=== PATIENT | male | born 1945 | race Caucasian/White ===

== ENCOUNTER → 2018-04-03 07:20 | Outpatient (CLI) | payer MEDICARE, BC, SELFPAY | PROVIDERS: PCP Internal Medicine; Visit Provider Surgery | DX: D64.9 Anemia, unspecified (principal) | CPT/HCPCS: 99213 ==

== ENCOUNTER 2018-04-19 09:43 | Day surgery (SDC) | payer MEDICARE, BC, SELFPAY ==
--- NOTE | 2018-04-19 06:42 | PDOC.DISCH_ITS ---
Discharge - Discharge Orders - Discharge Plan Disposition: HOME Condition: Fair Diet:: As Tolerated Equipment/Supplies:: No Equipment Needed Activity:: Activity as Tolerated - Instructions Micromedex Instructions: Colonoscopy (DC), Upper Endoscopy (DC), Gastritis (DC) , Diet for Stomach Ulcers and Gastritis (GEN), Colorectal Polyps (DC) Additional Instructions: Findings: 1. mild inflammation of the stomach 2. one polyp in the large bowel Follow up: depends on polyp pathology New Medications: Zantac 300 mg daily for 2 month to help with inflammation in the stomach Diet: low acid Please call if you develop: fevers >101.5 Nausea or Vomiting Abdominal pain that is not transient 1. Because there will be medication in your system for the next 24 hours, you may feel a little sleepy. Your coordination will be affected. Therefore: a. Do not drive or operate dangerous equipment for 24 hours. b. Do not drink alcohol beverages for 24 hours (not even beer). c. Plan to go home and rest for the day. 2. Generally there are no restrictions on your activity after a day or so has gone by, but you may feel a bit fatigued for a few days. 3 After you arrive home you may have a light meal and return to a normal diet as you can tolerate it without feeling sick to your stomach. 4. After surgery, you may feel pain or discomfort. This should be only transient , but if it persists please contact your doctor. 5. If there are any questions regarding the findings of your procedure, please feel free to contact your doctor. 6. If you are unable to contact your doctor with a problem, contact the hospital at [phone]. 7. Continue all your regular medications unless directed otherwise. I understand the above instructions and have no questions. Signature of Patient or Responsible Adult Escort Date/Time Name of Responsible Adult Escort Signature of Nurse Date/Time
[2018-04-19 09:57] VITALS: BP 95/61; PULSE 75; RESP 16; TEMP 37.6; O2SAT 97
[2018-04-19] MEDS: Lactated Ringers 1,000 ML 600 ML IV (11:10)
--- NOTE | 2018-04-19 11:18 | STOM_PTH ---
PATIENT: Gamal Zabala LOC: [facility] U#:[id number] AGE/SX: 72/M ROOM: RE04/19/[address]: Christiana Marin MD : [id number] BED: DIS: 04/19/2018 SPEC #: [id number] RECD: 04/19/18 12:28 STATUS: SULAIMAN REQ #: [id number] NGUYEN: 04/19/18 11:[address]: Christiana Marin DEPT: Surgical Specimen RECD BY: Kellie Campos ENTERED: 04/19/18 12:29 SP TYPE: STOMACH OTHR DR: Kristopher Fry Tissues: 1 - STOMACH BIOPSY 2 - BIOPSY BOWEL Procedures: GROSS AND MICRO LEVEL 4 IMMUNOPEROXIDASE STAIN Comments: [id number]
[2018-04-19 11:58] VITALS: BP 92/68; PULSE 74; RESP 16; TEMP 37; O2SAT 97
[2018-04-19 12:27] VITALS: BP 88/60; PULSE 65; RESP 16; TEMP 36.9; O2SAT 98
--- NOTE | 2018-04-19 13:11 | COLE_ITS ---
DATE OF PROCEDURE: April 19, 2018 PREOPERATIVE DIAGNOSIS: Anemia. POSTOPERATIVE DIAGNOSIS: Mild gastritis and one polyp in the transverse colon. PROCEDURE: 1. Esophagogastroduodenoscopy with antral biopsies. 2. Colonoscopy with polypectomy by cold forceps. ANESTHESIA: Monitored Anesthesia Care. ASA Class 2. ANESTHESIA PROVIDER: Jennifer Meléndez CRNA SURGEON: Lawrence Marin M.D. LUMBER SORTER: None. BLOOD LOSS: Minimal. SPECIMENS: 1. Antral biopsies. 2. Transverse colon polyp. PREP: MiraLAX and Dulcolax, which were adequate. COMPLICATIONS: No immediate complications. INDICATIONS: Mr. Zabala is a 72-year-old gentleman who was found to be anemic. He denies any melen a or hematochezia. Risks, benefits and complications were reviewed with him and he wished to proceed . No guarantees were given or implied. PROCEDURE START: 11:15 PROCEDURE END: 11:49 RETRACTION TIME: 11:34 to 11: 49, fifteen minutes. PROCEDURE: After informed consent was obtained, the patient was taken to the endoscopy suite and butch madnona in the supine position. Monitors were applied and a time-out was done. The patient's name, date of , procedure type, allergies to medications and metal in his body were all reviewed. The pat ient was then given sedation and a bite block was placed. Once sedated and comfortable, the gastroscope was introduced and advanced through the oropharynx into the esophagus. The proximal, mid and distal esophagus were normal. The Z-line was regular and at 3 5 cm. No inflammation was noted. The scope was advanced into the stomach and through the pylorus in to the third portion of the duodenum. The duodenum was normal. The scope was retracted back into th e stomach, where mild inflammation was noted around the antrum and this was biopsies to rule out H. p ylori. The scope was retroflexed; again no hiatal hernia was noted and the cardia and fundus were no rmal. No ulcers were identified. The scope was straightened and retracted back into the esophagus a nd remove. The patient's bed was then turned around and while sedated, a rectal exam was done. External exam wa s normal. Internal exam revealed normal sphincter tone, smooth prostate and no palpable masses. The colonoscope was introduced and retroflexed. Mild, grade 1 hemorrhoids were identified. The scope was straightened and advanced to the cecum without difficulty. The terminal ileum and appendiceal or ifice were identified. The prep was adequate. The scope was then slowly retracted back into the rec moises. In the transverse colon a small, sessile polyp was removed with forceps. Once in the rectum th e scope was removed. The patient was woken up and taken back to same-day surgery in stable condition . FOLLOW-UP: Depends on final pathology. If patient continues to be anemic, he may need a capsule end oscopy.
== END 2018-04-19 12:47 | disposition home or self-care (01) ==
PROVIDERS: PCP Internal Medicine; Visit Provider Surgery
DX: D64.9 Anemia, unspecified (principal); K63.5 Polyp of colon; K31.89 Other diseases of stomach and duodenum
CPT/HCPCS: 43239; 45380; 88305; 88361; J3010

== ENCOUNTER 2018-05-07 12:34 | Outpatient (REF) | payer MEDICARE, BC, SELFPAY ==
[2018-05-07 21:31] LABS: Abs Immature Grans 0.01 k/cumm (0.0-0.09); Absolute Basophil Count 0.03 k/cumm (0.0-0.2); Absolute Eosinophil Count 0.14 k/cumm (0.0-0.7); Absolute Lymphocyte Count 1.82 k/cumm (1.2-3.4); Absolute Neutrophil Count 3.74 k/cumm (1.2-6.7); Basophils % 0.5; Eosinophils % 2.2; HGB 10.5 g/dL (13.5-17.5); Immature Grans % 0.2; Lymphocytes % 28.3; Mean Corp. HGB Concentration 31.8 g/dL (32.0-36.0); Mean Corpuscular Hemoglobin 30.3 pg (27.0-33.0); Mean Corpuscular Volume 95.4 fL (80-95); Mean Platelet Volume 9.7 fL (8.0-11.0); Monocytes % 10.9; Neutrophils % 57.9; Platelet Count 229 x1000/uL (130-400); RBC 3.46 m/cumm (4.50-6.00); RBC Distribution Width 16.2 % (11.8-14.1); White Blood Cell Count 6.44 k/cumm (4.4-10.8)
[2018-05-09 09:33] LABS: IgA 764 mg/dL (85-499); IgG 1960 mg/dL (610-1616); IgM 64 mg/dL (35-242)
[2018-05-10 08:43] LABS: Albumin 44.2 % (55.8-66.1); Total Protein 7.7 g/dl (6.3-8.2)
== END 2018-05-07 12:54 ==
LOC: NCHCN 12:34
PROVIDERS: PCP Internal Medicine; Visit Provider Internal Medicine
DX: B02.9 Zoster without complications (principal)
CPT/HCPCS: 82784; 84165; 85025

== ENCOUNTER 2018-06-20 14:24 | Outpatient (CLI) | payer MEDICARE, BC, SELFPAY ==
--- NOTE | 2018-06-20 08:12 | DI.RAD_ITS ---
SYMPTOM/DIAGNOSIS: F/U RT MONO RIGHT HIP: The patient is status post THR. The prosthesis in good position with no significant interval change when compared with prior images dating back to 2016.
== END 2018-06-20 14:44 ==
PROVIDERS: PCP Internal Medicine; Referring Provider Internal Medicine; Visit Provider Student in an Organized Health Care Education/Training Program
DX: Z96.641 Presence of right artificial hip joint (principal); M25.551 Pain in right hip
CPT/HCPCS: 20610; 99213; 73502; J1040

== ENCOUNTER 2018-08-23 12:00 | Outpatient (REF) | payer MEDICARE, BC, SELFPAY ==
[2018-08-23 21:09] LABS: Abs Immature Grans 0.02 k/cumm (0.0-0.09); Absolute Basophil Count 0.02 k/cumm (0.0-0.2); Absolute Eosinophil Count 0.21 k/cumm (0.0-0.7); Absolute Lymphocyte Count 1.98 k/cumm (1.2-3.4); Absolute Monocyte Count 0.79 k/cumm (0.11-0.7); Absolute Neutrophil Count 4.62 k/cumm (1.2-6.7); Basophils % 0.3; Eosinophils % 2.7; HCT 34.4 % (40.0-50.0); HGB 11.1 g/dL (13.5-17.5); Immature Grans % 0.3; Lymphocytes % 25.9; Mean Corp. HGB Concentration 32.3 g/dL (32.0-36.0); Mean Corpuscular Hemoglobin 30.8 pg (27.0-33.0); Mean Corpuscular Volume 95.6 fL (80-95); Mean Platelet Volume 9.6 fL (8.0-11.0); Monocytes % 10.3; Neutrophils % 60.5; Platelet Count 242 x1000/uL (130-400); RBC Distribution Width 15.7 % (11.8-14.1); White Blood Cell Count 7.64 k/cumm (4.4-10.8)
[2018-08-23 21:36] LABS: Ferritin 29 ng/mL (8-388)
[2018-08-27 09:30] LABS: Hepatitis C Ab w Rflx HCV PCR Negative (NEGAT)
== END 2018-08-23 12:20 ==
LOC: NCHCN 12:00
PROVIDERS: PCP Internal Medicine; Visit Provider Internal Medicine
DX: D53.9 Nutritional anemia, unspecified (principal); M54.5 Low back pain; Z11.59 Encounter for screening for other viral diseases
CPT/HCPCS: 86803; 82728; 85025

== ENCOUNTER → 2018-09-05 08:28 | Outpatient (BNVA) | payer MEDICARE, BC, SELFPAY | PROVIDERS: PCP Internal Medicine; Referring Provider Internal Medicine; Visit Provider Student in an Organized Health Care Education/Training Program | DX: M70.61 Trochanteric bursitis, right hip (principal); Z47.1 Aftercare following joint replacement surgery; S39.011A Strain of muscle, fascia and tendon of abdomen, initial encounter; X58.XXXA Exposure to other specified factors, initial encounter | CPT/HCPCS: 99213 ==

== ENCOUNTER 2018-10-22 01:34 | Outpatient (CLI) | payer MEDICARE, BC, SELFPAY ==
--- NOTE | 2018-10-22 08:11 | DI.RAD_ITS ---
SYMPTOM/DIAGNOSIS:S/P L 4-5 DECOMPRESSION AND PARTIAL FACETECTOMY, STENOSIS, M48.061, S/P LUMBAR FUSION, Z98.1 LUMBAR SPINE: There are no prior comparison exams. The patient is status post placement of hardware at L 4-5. There has been an L 4 laminectomy and disc spacer placement at L 4-5. There is mild spondylolisthesis. There appears to be partial lumbarization of L 5. Endplate osteophytes are seen throughout. The right hip prosthesis is noted. IMPRESSION: Status post L 4-5 posterior fusion and laminectomy.
== END 2018-10-22 01:54 ==
PROVIDERS: PCP Internal Medicine; Visit Provider Neurological Surgery
DX: M48.061 Spinal stenosis, lumbar region without neurogenic claudication (principal); Z98.1 Arthrodesis status
CPT/HCPCS: 72110

== ENCOUNTER 2018-11-16 01:42 | Outpatient (CLI) | payer MEDICARE, BC, SELFPAY ==
--- NOTE | 2018-11-16 08:32 | DI.MRI_ITS ---
SYMPTOM/DIAGNOSIS: CHRONIC LOW BACK PAIN, LT THIGH PAIN, M79.652, M54.5, LUMBAR STENOSIS WITH NEUROGENIC CLAUDICATION,M48.062 S/P LUMBAR FUSION, Z98.1, EVALUATE FOR CORD COMPRESSION LUMBAR SPINE MRI: Routine noncontrast examination. Comparison is made with 10/06/17. Since the prior examination, the patient has undergone an L 4-5 laminectomy and L 4-5 discectomy. The conus medullaris is unchanged compared to the prior examination. At L 5-S 1, there is normal disc signal. No focal disc herniation or central spinal canal or neural foraminal stenosis is seen. At L 4-5, there is no significant central spinal canal stenosis. There does appear to be a diffuse disc bulge. There is narrowing of the right neural foramen which does appear to cause mild compression upon the exiting nerve root. There is mild narrowing of the left neural foramen with minimal narrowing of the exiting nerve root. At L 3-4, there is disc desiccation and a diffuse disc bulge. There does appear to be mild narrowing of the central spinal canal. There is bilateral neural foraminal narrowing with mild compression of the exiting nerve roots. At L 2-3, there is a diffuse disc bulge. There are degenerative changes of the facets with hypertrophy of the ligamentum flavum causing mild to moderate central spinal canal stenosis. No significant neural foraminal stenosis is seen. At L 1-2, there is a mild diffuse disc bulge with minimal narrowing of the AP diameter of the central spinal canal. No significant neural foraminal stenosis is seen. Mild degenerative endplate signal changes are present. Otherwise marrow signal is within normal limits. IMPRESSION: Interval post surgical changes at L 4-5. Multi level degenerative changes in the lumbar spine resulting in central spinal canal and neural foraminal stenosis as described above.
== END 2018-11-16 02:02 ==
PROVIDERS: PCP Internal Medicine; Visit Provider Neurological Surgery
DX: M54.5 Low back pain (principal); M79.652 Pain in left thigh; Z98.1 Arthrodesis status; M51.26 Other intervertebral disc displacement, lumbar region; M51.36 Other intervertebral disc degeneration, lumbar region
CPT/HCPCS: 72148

== ENCOUNTER → 2018-11-26 09:20 | Outpatient (BNVA) | payer MEDICARE, BC, SELFPAY | PROVIDERS: PCP Internal Medicine; Referring Provider Internal Medicine; Visit Provider Student in an Organized Health Care Education/Training Program | DX: M70.61 Trochanteric bursitis, right hip (principal); Z98.890 Other specified postprocedural states | CPT/HCPCS: 99213 ==

== ENCOUNTER 2019-03-12 12:37 | Outpatient (CLI) | payer MEDICARE, BC, SELFPAY ==
[2019-03-12 12:50] VITALS: BP 104/72; PULSE 81; RESP 18; TEMP 37.7; O2SAT 97
--- NOTE | 2019-03-12 13:28 | PDOC.PAIN ---
Pain Clinic Procedure Note Current Active Problems Problem Status Onset Lumbar radicular syndrome LUMBAR / SACRAL TRANSFORAMINAL INJECTION AT THE RIGHT l4 LALY DANIEL has been [facility] for a transforaminal nerve root block and steroid injection. COMMENTS: I reviewed his evaluation by Ms. Garciayulycarmella from 01/24/19. He has had L4-L5 fusion surgery. Patient was interviewed and the medical record reviewed. There were no medical, pharmacologic, radiographic or other structural contraindications to attempting fluoroscopically guided transforaminal nerve root block and epidural steroid injection. Risks and expected side effects as well as potential benefit of the procedure were reviewed and voiced concerns addressed. The printed consent form was signed and witnessed. Standard time-out procedure was performed. Patient was placed in the prone position on the fluoroscopy table and automated blood pressure cuff and pulse oximeter applied. Fluoroscopy was utilized to identify the right neural foramen between L4 and L5. A skin josé luis was made for the needle insertion site. A Chlorhexadine prep was carried out, and sterile drapes were applied. Local anesthesia was achieved in the skin and subcutaneous tissues. A 22 gauge curved tip spinal needle was then inserted, advanced with fluoroscopic guidance into the neural foramen, confirmed on the lateral view. After negative aspiration, 2 ml of Omnipaque 240 was injected confirming position in A/P and lateral views. This showed a good spread of dye transforaminally into the epidural space. There was no vascular update with contrast injection under continuous fluoroscopy and digital substraction. 15 mg of Dexamethasone was injected, followed by 0.5 ml of 1% Xylocaine flush for the nerve root block, as well. There was no unusual discomfort expressed.The needle was withdrawn. The patient tolerated the procedure well. A Band-Aid was applied. Vital signs were stable throughout the procedure and were as recorded in nursing records. If given, dosages of intravenous drugs for anxiolysis and analgesia were documented in nursing records. Follow up plans and appointments were discussed. Post procedure instruction was given as documented in nursing records and patient was discharged in the care of an identified route salesman and driver. COMMENTS: If this procedure is effective, it can be completed up to 3 times per 12 months. CC: Kristopher Fry
--- NOTE | 2019-03-12 13:30 | DI.RAD_ITS ---
SYMPTOMS/DIAGNOSIS: LUMBAR RADICULOPATHY, TRANSFORAMINAL EPIDURAL STEROID INJECTION PAIN CLINIC: Fluoroscopy Time: 55.5s Fluoroscopy was utilized by Dr. Buchanan during the performance of a transforaminal epidural steroid injection. Please refer to the procedure report for complete details.
[2019-03-12 13:40] VITALS: BP 104/62; PULSE 88; RESP 20; O2SAT 95
[2019-03-12] MEDS: Omnipaque 240 MG/ML 50 ML BTL IJ (13:40)
[2019-03-12] MEDS: Dexamethasone Sod. Phos./Pres-Free 10 MG/ML VIAL IJ (13:40)
== END 2019-03-12 12:57 ==
PROVIDERS: PCP Internal Medicine; Visit Provider Preventive Medicine Occupational Medicine
DX: M54.16 Radiculopathy, lumbar region (principal)
CPT/HCPCS: 64483; 72100; Q9967

== ENCOUNTER → 2019-05-09 11:47 | Outpatient (BNVA) | payer MEDICARE, BC, SELFPAY | PROVIDERS: PCP Internal Medicine; Referring Provider Internal Medicine; Visit Provider Student in an Organized Health Care Education/Training Program | DX: Z96.641 Presence of right artificial hip joint (principal); Z98.890 Other specified postprocedural states; M70.61 Trochanteric bursitis, right hip; R79.82 Elevated C-reactive protein (CRP) | CPT/HCPCS: 99213 ==

== ENCOUNTER 2019-05-09 12:55 | Outpatient (CLI) | payer MEDICARE, BC, SELFPAY ==
[2019-05-09 14:27] LABS: C-Reactive Protein 1.76 mg/dL (0.0-0.3)
[2019-05-09 15:02] LABS: ESR 84 mm/hr (1-20)
== END 2019-05-09 13:15 ==
PROVIDERS: PCP Internal Medicine; Visit Provider Student in an Organized Health Care Education/Training Program
DX: M25.559 Pain in unspecified hip (principal); Z96.649 Presence of unspecified artificial hip joint; M70.61 Trochanteric bursitis, right hip; R79.82 Elevated C-reactive protein (CRP); Z96.641 Presence of right artificial hip joint; Z98.890 Other specified postprocedural states
CPT/HCPCS: 36415; 85652; 99213; 86140

== ENCOUNTER 2019-05-30 01:27 | Outpatient (CLI) | payer MEDICARE, BC, SELFPAY ==
--- NOTE | 2019-05-30 09:34 | DI.RAD_ITS ---
EXAM: RF JOINT INJECTION FLUORO GUID CLINICAL HISTORY: Right Hip Aspiration, chronic hip pain after total replacement rt hip joint. FINDINGS: Fluoroscopy was utilized by Dr. Espinosa during right hip injection. Hard copy shows needle placement overlying the right hip prosthesis. FLUORO TIME: 13.6 seconds
[2019-05-30] MEDS: Bupivacaine 0.5% Pres-Free 10 ML VIAL 8 ML IJ (09:37)
[2019-05-30 10:52] LABS: Clarity CLOUDY; Nucleated Cells 39250 /MM3 (0-0); Source R HIP
[2019-05-30 10:53] LABS: Mononuclear Cells 2 % (0-0); Polynuclear Cells 98 % (0-0)
--- NOTE | 2019-05-30 21:39 | W.PROCNOTE ---
Date of service: 05/30/19 Time of Service: 09:39 Procedure Note Date of procedure: 05/30/19 Procedure: Right Hip Aspiration and Injection with Fluoroscopic Guidance Surgeon/Proceduralist/Physician: Neptali Espinosa Procedure Diagnosis: Right Hip Pain after Hip Replacement Procedure Indications: Parvez has had worsening pain of the RIGHT hip and groin. To serve as diagnostic for possible infection, an aspiration under fluoroscopy was recommended. I had discussed the risks of the procedure and the patient elected to proceed. Procedure Description: Parvez was greeted in the flouroscopy room. The correct side was identified and the consent was reviewed with the patient and signed. The patient was then placed in the supine position on the fluoroscopy table. The RIGHT hip was then prepped with Chloraprep. The anterolateral injection starting point was identiifed by bony landmarks and fluoroscopy. The skin and soft tissue in the tract of the injection was anesthetized with 1% Lidocaine. A spinal needle was then inserted deep into the hip joint at the level of the lateral femoral neck under fluoroscopic guidance. Metallic contact was felt through the needle and location was confrimed to be correct on x-ray. Once confirmed, an aspiration was performed. Approximately 6cc of cloudy, yellow fluid was obtained. This was sent for cell count, culture, and synovasure. The hip was then injected with 6cc of 0.5% Bupivicaine. A bandaid was placed on the injection site.
== END 2019-05-30 01:47 ==
PROVIDERS: PCP Internal Medicine; Visit Provider Student in an Organized Health Care Education/Training Program
DX: M25.551 Pain in right hip; Z96.641 Presence of right artificial hip joint; T84.84XA Pain due to internal orthopedic prosthetic devices, implants and grafts, initial encounter
CPT/HCPCS: 20610; 77002; 87070; 87205; 89051

== ENCOUNTER 2019-07-10 11:55 | Outpatient (RCR) | payer MEDICARE, BC, SELFPAY ==
[2019-07-10] MEDS: Normal Saline Flush 10 ML SYR IVP (13:33)
== END 2019-07-20 23:59 | disposition home or self-care (01) ==
LOC: INF 11:55
PROVIDERS: PCP Internal Medicine; Visit Provider Internal Medicine
DX: T84.51XD Infection and inflammatory reaction due to internal right hip prosthesis, subsequent encounter (principal); A49.9 Bacterial infection, unspecified; Z79.2 Long term (current) use of antibiotics; Z98.890 Other specified postprocedural states
CPT/HCPCS: 96365; J2540

== ENCOUNTER 2019-07-15 12:39 | Outpatient (REF) | payer MEDICARE, BC, SELFPAY ==
[2019-07-15 16:02] LABS: Abs Immature Grans 0.03 k/cumm (0.0-0.09); Absolute Basophil Count 0.02 k/cumm (0.0-0.2); Absolute Eosinophil Count 0.21 k/cumm (0.0-0.7); Absolute Lymphocyte Count 1.72 k/cumm (1.2-3.4); Absolute Monocyte Count 0.78 k/cumm (0.11-0.7); Absolute Neutrophil Count 4.61 k/cumm (1.2-6.7); Basophils % 0.3; Eosinophils % 2.8; HCT 26.4 % (40.0-50.0); HGB 8.4 g/dL (13.5-17.5); Immature Grans % 0.4; Lymphocytes % 23.3; Mean Corp. HGB Concentration 31.8 g/dL (32.0-36.0); Mean Corpuscular Hemoglobin 31.2 pg (27.0-33.0); Mean Corpuscular Volume 98.1 fL (80-95); Mean Platelet Volume 9.4 fL (8.0-11.0); Monocytes % 10.6; Neutrophils % 62.6; Platelet Count 285 x1000/uL (130-400); RBC 2.69 m/cumm (4.50-6.00); RBC Distribution Width 16.1 % (11.8-14.1); White Blood Cell Count 7.37 k/cumm (4.4-10.8)
[2019-07-15 16:15] LABS: ALT 28 U/L (16-63); AST 24 U/L (15-37); Albumin 2.6 g/dL (3.4-5.0); Alkaline Phosphatase 68 U/L (46-116); Anion Gap 8.7 mmol/L (3-11); BUN 17 mg/dL (7-18); Bilirubin, Total 0.2 mg/dL (0.2-1.0); C-Reactive Protein 2.85 mg/dL (0.0-0.3); CO2 26.3 mmol/L (21.0-32.0); CREATININE 0.99 mg/dL (0.70-1.30); Calcium 8.1 mg/dL (8.5-10.1); Chloride 104 mmol/L (98-107); Glucose 128 mg/dL (74-106); Sodium 139 mmol/L (136-145); Total Protein 6.9 g/dL (6.4-8.2)
[2019-07-15 19:14] LABS: Anisocytosis 1+; Diff Comment RBC Morph Reviewed; Macrocytosis 1+; Polychromasia Present
== END 2019-07-15 12:59 ==
LOC: NCHCN 12:39
PROVIDERS: PCP Internal Medicine; Visit Provider Internal Medicine
DX: M25.551 Pain in right hip (principal); Z96.641 Presence of right artificial hip joint; T84.51XD Infection and inflammatory reaction due to internal right hip prosthesis, subsequent encounter; A49.8 Other bacterial infections of unspecified site; Z79.2 Long term (current) use of antibiotics
CPT/HCPCS: 80053; 85025; 86140

== ENCOUNTER 2019-07-22 19:25 | Outpatient (REF) | payer MEDICARE, BC, SELFPAY ==
[2019-07-22 14:44] LABS: Abs Immature Grans 0.01 k/cumm (0.0-0.09); Absolute Basophil Count 0.02 k/cumm (0.0-0.2); Absolute Eosinophil Count 0.27 k/cumm (0.0-0.7); Absolute Lymphocyte Count 1.61 k/cumm (1.2-3.4); Absolute Monocyte Count 0.83 k/cumm (0.11-0.7); Absolute Neutrophil Count 3.28 k/cumm (1.2-6.7); Basophils % 0.3; Eosinophils % 4.5; HCT 28.7 % (40.0-50.0); Immature Grans % 0.2; Lymphocytes % 26.7; Mean Corp. HGB Concentration 31.4 g/dL (32.0-36.0); Mean Corpuscular Hemoglobin 30.8 pg (27.0-33.0); Mean Corpuscular Volume 98.3 fL (80-95); Mean Platelet Volume 9.2 fL (8.0-11.0); Monocytes % 13.8; Neutrophils % 54.5; Platelet Count 306 x1000/uL (130-400); RBC 2.92 m/cumm (4.50-6.00); RBC Distribution Width 16.4 % (11.8-14.1); White Blood Cell Count 6.02 k/cumm (4.4-10.8)
[2019-07-22 14:55] LABS: Diff Comment RBC Morph Reviewed; Polychromasia Present
[2019-07-22 14:56] LABS: Hypochromasia 1+
[2019-07-22 15:25] LABS: ALT 24 U/L (16-63); AST 24 U/L (15-37); Albumin 2.7 g/dL (3.4-5.0); Alkaline Phosphatase 84 U/L (46-116); Anion Gap 8.9 mmol/L (3-11); BUN 18 mg/dL (7-18); Bilirubin, Total 0.1 mg/dL (0.2-1.0); C-Reactive Protein 2.67 mg/dL (0.0-0.3); CO2 26.1 mmol/L (21.0-32.0); CREATININE 0.93 mg/dL (0.70-1.30); Calcium 8.6 mg/dL (8.5-10.1); Chloride 102 mmol/L (98-107); Glucose 140 mg/dL (74-106); Potassium 4.2 mmol/L (3.5-5.1); Sodium 137 mmol/L (136-145); Total Protein 7.5 g/dL (6.4-8.2)
== END 2019-07-22 19:45 ==
LOC: NCHCN 19:25
PROVIDERS: PCP Internal Medicine; Visit Provider Internal Medicine
DX: M25.551 Pain in right hip (principal); Z96.641 Presence of right artificial hip joint; T84.51XD Infection and inflammatory reaction due to internal right hip prosthesis, subsequent encounter; Z79.2 Long term (current) use of antibiotics
CPT/HCPCS: 80053; 85025; 86140

== ENCOUNTER 2019-07-29 14:34 | Outpatient (REF) | payer MEDICARE, BC, SELFPAY ==
[2019-07-29 16:13] LABS: Abs Immature Grans 0.01 k/cumm (0.0-0.09); Absolute Basophil Count 0.04 k/cumm (0.0-0.2); Absolute Lymphocyte Count 1.39 k/cumm (1.2-3.4); Absolute Monocyte Count 0.76 k/cumm (0.11-0.7); Absolute Neutrophil Count 3.57 k/cumm (1.2-6.7); Basophils % 0.6; Eosinophils % 6.5; HCT 29.2 % (40.0-50.0); HGB 9.2 g/dL (13.5-17.5); Immature Grans % 0.2; Lymphocytes % 22.5; Mean Corp. HGB Concentration 31.5 g/dL (32.0-36.0); Mean Corpuscular Hemoglobin 30.9 pg (27.0-33.0); Monocytes % 12.3; Neutrophils % 57.9; Platelet Count 321 x1000/uL (130-400); RBC 2.98 m/cumm (4.50-6.00); RBC Distribution Width 15.9 % (11.8-14.1); White Blood Cell Count 6.17 k/cumm (4.4-10.8)
[2019-07-29 16:19] LABS: ALT 19 U/L (16-63); AST 21 U/L (15-37); Albumin 2.7 g/dL (3.4-5.0); Alkaline Phosphatase 79 U/L (46-116); Anion Gap 9.3 mmol/L (3-11); BUN 16 mg/dL (7-18); Bilirubin, Total 0.2 mg/dL (0.2-1.0); C-Reactive Protein 3.72 mg/dL (0.0-0.3); CO2 26.7 mmol/L (21.0-32.0); CREATININE 1.01 mg/dL (0.70-1.30); Calcium 8.6 mg/dL (8.5-10.1); Chloride 100 mmol/L (98-107); Glucose 163 mg/dL (74-106); Sodium 136 mmol/L (136-145); Total Protein 7.8 g/dL (6.4-8.2)
[2019-07-29 16:31] LABS: Diff Comment RBC Morph Reviewed; Hypochromasia 1+; Polychromasia Present
== END 2019-07-29 14:54 ==
LOC: NCHCN 14:34
PROVIDERS: PCP Internal Medicine; Visit Provider Internal Medicine
DX: M25.551 Pain in right hip (principal); T84.51XD Infection and inflammatory reaction due to internal right hip prosthesis, subsequent encounter; Z96.641 Presence of right artificial hip joint; Z79.2 Long term (current) use of antibiotics
CPT/HCPCS: 80053; 85025; 86140

== ENCOUNTER 2019-08-05 14:30 | Outpatient (REF) | payer MEDICARE, BC, SELFPAY ==
[2019-08-05 15:53] LABS: ALT 16 U/L (16-63); AST 16 U/L (15-37); Albumin 2.6 g/dL (3.4-5.0); Alkaline Phosphatase 77 U/L (46-116); Anion Gap 9.6 mmol/L (3-11); BUN 18 mg/dL (7-18); Bilirubin, Total 0.2 mg/dL (0.2-1.0); C-Reactive Protein 2.23 mg/dL (0.0-0.3); CO2 26.4 mmol/L (21.0-32.0); Calcium 8.6 mg/dL (8.5-10.1); Chloride 101 mmol/L (98-107); Glucose 186 mg/dL (74-106); Potassium 3.9 mmol/L (3.5-5.1); Sodium 137 mmol/L (136-145); Total Protein 7.6 g/dL (6.4-8.2)
[2019-08-05 15:58] LABS: Abs Immature Grans 0.02 k/cumm (0.0-0.09); Absolute Basophil Count 0.06 k/cumm (0.0-0.2); Absolute Lymphocyte Count 1.57 k/cumm (1.2-3.4); Absolute Monocyte Count 0.58 k/cumm (0.11-0.7); Absolute Neutrophil Count 3.98 k/cumm (1.2-6.7); Basophils % 0.9; Eosinophils % 3.1; HCT 29.8 % (40.0-50.0); HGB 9.3 g/dL (13.5-17.5); Immature Grans % 0.3; Lymphocytes % 24.5; Mean Corp. HGB Concentration 31.2 g/dL (32.0-36.0); Mean Corpuscular Hemoglobin 30.4 pg (27.0-33.0); Mean Corpuscular Volume 97.4 fL (80-95); Neutrophils % 62.2; Platelet Count 266 x1000/uL (130-400); RBC 3.06 m/cumm (4.50-6.00); RBC Distribution Width 15.6 % (11.8-14.1); White Blood Cell Count 6.41 k/cumm (4.4-10.8)
== END 2019-08-05 14:50 ==
LOC: NCHCN 14:30
PROVIDERS: PCP Internal Medicine; Visit Provider Internal Medicine
DX: M25.551 Pain in right hip (principal); T84.51XD Infection and inflammatory reaction due to internal right hip prosthesis, subsequent encounter; Z96.641 Presence of right artificial hip joint; Z79.2 Long term (current) use of antibiotics
CPT/HCPCS: 80053; 85025; 86140

== ENCOUNTER 2019-08-12 14:00 | Outpatient (REF) | payer MEDICARE, BC, SELFPAY ==
[2019-08-12 15:09] LABS: ALT 18 U/L (16-63); AST 20 U/L (15-37); Albumin 2.7 g/dL (3.4-5.0); Alkaline Phosphatase 78 U/L (46-116); Anion Gap 8.2 mmol/L (3-11); BUN 16 mg/dL (7-18); Bilirubin, Total 0.2 mg/dL (0.2-1.0); CO2 26.8 mmol/L (21.0-32.0); Calcium 8.9 mg/dL (8.5-10.1); Chloride 100 mmol/L (98-107); Glucose 156 mg/dL (74-106); Potassium 3.8 mmol/L (3.5-5.1); Sodium 135 mmol/L (136-145); Total Protein 7.9 g/dL (6.4-8.2)
[2019-08-12 15:20] LABS: Abs Immature Grans 0.01 k/cumm (0.0-0.09); Absolute Basophil Count 0.03 k/cumm (0.0-0.2); Absolute Eosinophil Count 0.29 k/cumm (0.0-0.7); Absolute Lymphocyte Count 1.81 k/cumm (1.2-3.4); Absolute Neutrophil Count 3.63 k/cumm (1.2-6.7); Basophils % 0.5; Eosinophils % 4.5; HCT 31.3 % (40.0-50.0); HGB 9.8 g/dL (13.5-17.5); Immature Grans % 0.2; Mean Corp. HGB Concentration 31.3 g/dL (32.0-36.0); Mean Corpuscular Hemoglobin 30.4 pg (27.0-33.0); Mean Corpuscular Volume 97.2 fL (80-95); Mean Platelet Volume 9.1 fL (8.0-11.0); Monocytes % 10.8; Platelet Count 266 x1000/uL (130-400); RBC 3.22 m/cumm (4.50-6.00); RBC Distribution Width 15.3 % (11.8-14.1); White Blood Cell Count 6.47 k/cumm (4.4-10.8)
[2019-08-12 15:51] LABS: Diff Comment RBC Morph Reviewed; Hypochromasia 1+; Polychromasia Present
== END 2019-08-12 14:20 ==
LOC: LBN 14:00
PROVIDERS: PCP Internal Medicine; Visit Provider Internal Medicine
DX: M25.551 Pain in right hip (principal); T84.51XD Infection and inflammatory reaction due to internal right hip prosthesis, subsequent encounter; Z96.641 Presence of right artificial hip joint; Z79.2 Long term (current) use of antibiotics
CPT/HCPCS: 80053; 85025; 86140

== ENCOUNTER 2020-03-21 16:51 | Outpatient (REF) | payer MEDICARE, BC, SELFPAY ==
[2020-03-24 11:08] LABS: Campylobacter PCR Negative (Negative); Salmonella PCR Negative (Negative); Shiga Toxin PCR Negative (Negative); Shigella/Enteroinvasive Ecoli Negative (Negative)
== END 2020-03-21 17:11 ==
LOC: NCHCN 16:51
PROVIDERS: PCP Internal Medicine; Visit Provider Internal Medicine
DX: R19.7 Diarrhea, unspecified (principal)
CPT/HCPCS: 87329; 87505

== ENCOUNTER 2020-09-07 18:57 | Outpatient (REF) | payer MEDICARE, BC, SELFPAY ==
[2020-09-07 21:34] LABS: HCT 37.7 % (40.0-50.0); HGB 12.5 g/dL (13.5-17.5); MCH 33.2 pg (27.0-33.0); MCHC 33.2 % (32.0-36.0); MPV 9.8 fL (8.0-11.0); Platelet Count 182 10^3/uL (130-400); RBC 3.77 10^6/uL (4.36-5.78); RDW 13.4 % (11.8-14.1); RDW-SD 49.1 fL; Reticulocyte 1.1 % (0.5-2.4); WBC 6.93 10^3/uL (4.4-10.8)
[2020-09-07 22:02] LABS: Iron 78 ug/dL (65-175); Total Iron Binding Capacity 285 ug/dL (250-450); Transferrin Sat 27 % (20-55)
[2020-09-07 22:03] LABS: Anion Gap 8.3 mmol/L (3-11); BUN 16 mg/dL (7-18); CO2 26.7 mmol/L (21.0-32.0); Calcium 8.7 mg/dL (8.5-10.1); Calculated LDL 101 mg/dL (<100); Chloride 103 mmol/L (98-107); Cholesterol 177 mg/dL (<200); Glucose 89 mg/dL (74-106); HDL Cholesterol 53 mg/dL (40-60); Potassium 4.2 mmol/L (3.5-5.1); Sodium 138 mmol/L (136-145); TSH 2.23 uIU/mL (0.36-3.74); Triglyceride 119 mg/dL (<150)
== END 2020-09-07 19:17 ==
LOC: NCHCN 18:57
PROVIDERS: PCP Internal Medicine; Visit Provider Internal Medicine
DX: E78.5 Hyperlipidemia, unspecified (principal); R73.03 Prediabetes; D53.9 Nutritional anemia, unspecified; R20.2 Paresthesia of skin
CPT/HCPCS: 80048; 80061; 85027; 83036; 83540; 83550; 84443; 85045

== ENCOUNTER → 2020-11-03 10:07 | Outpatient (BNVA) | payer MEDICARE, BC, SELFPAY | PROVIDERS: PCP Internal Medicine; Referring Provider Internal Medicine; Visit Provider Nurse Practitioner Adult Health | DX: G56.03 Carpal tunnel syndrome, bilateral upper limbs (principal) | CPT/HCPCS: 95909; 99203; 99213 ==

== ENCOUNTER → 2020-11-20 10:53 | Outpatient (BNVA) | payer MEDICARE, BC, SELFPAY | PROVIDERS: PCP Internal Medicine; Referring Provider Internal Medicine; Visit Provider Student in an Organized Health Care Education/Training Program | DX: G56.03 Carpal tunnel syndrome, bilateral upper limbs (principal); M65.351 Trigger finger, right little finger | CPT/HCPCS: 99213 ==

== ENCOUNTER 2020-11-30 03:19 | Outpatient (CLI) | payer MEDICARE, BC, SELFPAY ==
[2020-11-30 10:52] LABS: Source Nasal/Nares
[2020-11-30 16:19] LABS: COVID-19 PCR Negative (Negative)
== END 2020-11-30 03:20 | disposition home or self-care (01) ==
LOC: LBO 03:19
PROVIDERS: PCP Internal Medicine; Visit Provider Student in an Organized Health Care Education/Training Program
DX: Z20.822 Contact with and (suspected) exposure to COVID-19 (principal); Z01.818 Encounter for other preprocedural examination
CPT/HCPCS: 87635

== ENCOUNTER 2020-12-02 08:27 | Day surgery (SDC) | payer MEDICARE, BC, SELFPAY ==
[2020-12-02 08:55] VITALS: BP 118/69; PULSE 71; RESP 18; TEMP 36.5; O2SAT 96
[2020-12-02] MEDS: Lactated Ringers 1,000 ML 80 ML IV (09:15)
[2020-12-02] MEDS: ceFAZolin 2 GM/50 ML BAG IVPB (09:28)
--- NOTE | 2020-12-02 09:38 | PDOC.DSDIS_ITS ---
Discharge Plan Disposition Patient Disposition: HOME Condition: Good Discharge Details Reason For Visit: Right ECTR and Trigger Finger Attending Provider: Neptali Espinosa Primary Care Provider: Kristopher Fry Home Meds and New Rx's Prescriptions: New hydrocodone-acetaminophen 5-325 mg tablet 1 tab PO Q6H PRNQty: 5 RF: 0 acetaminophen [Tylenol Extra Strength] 500 mg tablet 500 mg PO Q6H PRNQty: 90 RF: 0 ibuprofen 600 mg tablet 600 mg PO TID Qty: 90 RF: 0 Continued multivitamin tablet 1 tab PO DAILY RF: 0 calcium-magnesium 500-250 mg tablet 1 tab PO DAILY RF: 0 cyanocobalamin (vitamin B-12) 500 mcg tablet 500 mcg PO DAILY RF: 0 amoxicillin 500 mg capsule 2,000 mg PO ONCE RF: 0 ferrous gluconate 324 mg (37.5 mg iron) tablet 324 mg PO DAILY RF: 0 vitamin B complex [B Complex-Vitamin B12] Tablet 1 tab PO DAILY RF: 0 Discharge Instructions Additional Instructions: Carpal Tunnel Decompression Discharge Instructions Activity: You should keep your incision covered and dry for 72 hours. After you may remove the dressing for hygiene after 72 hours however, continue to keep the incision clean, dry and covered until your first postoperative appointment. This will allow the incision site to heal. Gentle motion of the hand, wrist, and fingers is okay and encouraged after the first few days, but no repetitive activities nor heavy lifting. You may apply ice. Medications: - You should take Tylenol and Ibuprofen around the clock as needed per manufacturers guidelines. - You have been prescribed Hydrocodone for breakthrough pain. Dressings: - The initial surgical dressing should stay in place for 3 days. It may then be removed and kept clean and dry. You should cover with a light gauze dressing. - You may shower after 3 days and get the wound wet. Follow-up: 10 days Stand Alone Forms: Jesús C. Tunnel Release, [place] T. Finger Release, Bruno Barrios (DS) Referrals: Neptali Espinosa MD [ [facility] STAFF PHYSICIAN] - Activity:: Activity as Tolerated Remove Dressings/Wound Care:: 72 hours Shower/Bathe:: 72 hours Diet:: As Tolerated Discharge Orders Discharge Orders: Discharge Order (Routine); Ordered 12/02/20 Ordered By: Mary Celestin DS: Diagnosis Discharge Diagnosis (1) Trigger little finger of right hand: Status: Acute (2) Bilateral carpal tunnel syndrome: Status: Acute
[2020-12-02] MEDS: Sodium Bicarbonate 50 MEQ/50 ML VIAL (09:56)
[2020-12-02 10:45] VITALS: BP 102/60; PULSE 64; RESP 16; TEMP 36.2; O2SAT 96
--- NOTE | 2020-12-02 12:12 | W.PM.OP ---
Date of service: 12/02/20 Time of Service: 10:12 Operative Note Operative Note DATE OF PROCEDURE: 12/02/20 PRE-OP DIAGNOSIS: Right Carpal Tunnel Syndrome, Right Little Finger Trigger Finger POST-OP DIAGNOSIS: same PROCEDURE: Right Endoscopic Carpal Tunnel Release, Right Little Finger Trigger Release SURGEON: Neptali Espinosa ANESTHESIA TYPE: General:No Airway Refer to Anesthesia Record ESTIMATED BLOOD LOSS: 0 PATHOLOGY: none sent TOURNIQUET TIME: 4 COMPLICATIONS: None Patient was transported to: same day Patient's condition: stable Indications: I have seen Parvez in clinic for symptoms of carpal tunnel syndrome as well as a little finger trigger finger of the right hand. The numbness, tingling, and pain limited function. Clinical exam findings [with nerve conduction tests ]confirmed the diagnosis of carpal tunnel syndrome. Nonoperative measures such as bracing, time, activity modifications had been tried but disability and pain persisted. I discussed carpal tunnel release with the patient. I reviewed the risks of the procedure to include, but not limited to, bleeding, infection, pain, stiffness, incomplete release, damage to nerves or vessels, persistent numbness, recurrence. Despite these risks, the patient elected to proceed. Findings: There was tightened carpal tunnel. This was dilated and released successfully with the endoscopic with increased space within the tunnel. The antebrachial fascia was released proximally freeing the median nerve at the wrist. Procedure Description: Parvez was greeted in the preoperative holding area where the correct side was identified and marked. The consent was reviewed with the patient and signed. The history and physical was updated. All questions were answered. Parvez was taken back to the operating room. The patient was placed into the supine position on the operating room table with the right arm on an arm board. A nonsterile tourniquet was placed high onto the arm. All bony prominences were well padded. Prophylactic antibiotics in the form of Cefazolin were administered. The right arm was then prepped with Chloraprep and draped in a standard fashion with stockinette and extremity drape. A timeout to confirm correct identity, side and site, procedure, allergies, anesthesia, and medical concerns was performed. The surgical site was marked in the volar wrist creases in line with the radial border of the fourth ray as well as directly over the flexor tendon and A1 lia of the little finger. These areas were anesthetized with 1% Lidocaine with Epinephrine and buffered with Sodium Bicarbonate. The skin was incised longitudinally. The deep structures were dissected bluntly. Neurovascular structures and soft tissues were mobilized medially and laterally to expose the tendon sheath of the little finger. The proximal border of the A1 lia was identified and incised with a scissor. This was then extended proximally distally to make sure there is no remnant crossing structures. The tendons were removed from the hand and inspected and showed no signs of damage. The wound was then irrigated. The skin was closed with a 4-0 nylon. Attention was then turned for the carpal tunnel. The limb was then exsanguinated with an Esmarch. The skin was incised with a 15 blade, approximately 1cm. The skin only was cut and the deeper tissue was dissected bluntly with a tenotomy scissor, avoiding passing nerve and venous structures. The fascia was penetrated and opened bluntly. A two-prong skin hook was placed under this proximal fascial edge. A series of hamate finders were used to identify and dilate the carpal tunnel. Synovial elevator was used to free synovial attachments to the underside of the transverse carpal ligament. My thumb was kept in the palm to josé luis the distal extent of the carpal tunnel and correctly position the hand. The [employer]aire endoscope was inserted without difficulty and without resistance. Excellent visualization showed horizontally running fibers of the transverse carpal ligament (TCL). The distal extent of the TCL was visualized and the end of the scope palpated with the thumb. The blade was elevated and withdrawn from distal to proximal. The TCL was split into two flaps. The endoscope was reinserted to confirm complete release and any remnant ligament was incised. The scope was withdrawn and the proximal aspect of the carpal tunnel was grossly inspected and appeared release with the median nerve visible. The antebrachial fascia at the level of the wrist was then freed from the overlying skin and then the underlying median nerve with blunt dissection. This was transected longitudinally for about 3cm proximal to the wrist incision. The wound was then irrigated with easy flow of irrigant distally and proximally. The incision was closed with a single 4-0 Nylon suture. The tourniquet was deflated with the initial dressing and held with some pressure. Blood flow returned easily to all digits with capillary refill less than 2 seconds. There was some oozing from a superficial vein at the level of the carpal tunnel incision but this stopped with any light pressure. Then, the wounds were dressed with Xeroform, Gauze, Kerlix and Luciano. The patient tolerated the procedure well and was returned to the Same Day Surgery area in a stable condition suffering no known complication.
== END 2020-12-02 11:21 | disposition home or self-care (01) ==
PROVIDERS: PCP Internal Medicine; Visit Provider Student in an Organized Health Care Education/Training Program
PROC: 01N54ZZ Release Median Nerve, Percutaneous Endoscopic Approach (ICD-10-PCS; CPT 29848; principal; 2020-12-02 10:15)
PROC: (CPT 26055; 2020-12-02 10:15)
DX: M65.351 Trigger finger, right little finger (principal); G56.01 Carpal tunnel syndrome, right upper limb; E78.00 Pure hypercholesterolemia, unspecified; N40.0 Benign prostatic hyperplasia without lower urinary tract symptoms
CPT/HCPCS: 26055; 29848; J0690; J2001; J3010

== ENCOUNTER → 2020-12-11 10:26 | Outpatient (BNVA) | payer MEDICARE, BC, SELFPAY | PROVIDERS: PCP Internal Medicine; Referring Provider Internal Medicine; Visit Provider Physician Assistant | DX: Z47.89 Encounter for other orthopedic aftercare (principal); G56.02 Carpal tunnel syndrome, left upper limb ==

== ENCOUNTER 2021-01-25 04:01 | Outpatient (CLI) | payer MEDICARE, BC, SELFPAY ==
[2021-01-25 11:08] LABS: Source Nasal/Nares
[2021-01-25 15:09] LABS: COVID-19 PCR Negative (Negative)
== END 2021-01-25 04:02 | disposition home or self-care (01) ==
LOC: LBO 04:01
PROVIDERS: PCP Internal Medicine; Visit Provider Student in an Organized Health Care Education/Training Program
DX: Z20.822 Contact with and (suspected) exposure to COVID-19 (principal); Z01.818 Encounter for other preprocedural examination
CPT/HCPCS: 87635

== ENCOUNTER 2021-01-27 07:30 | Day surgery (SDC) | payer MEDICARE, BC, SELFPAY ==
--- NOTE | 2021-01-27 07:37 | W.PM.DSUDISC ---
Documented by User: RENETTA Aguilera 01/27/21 07:40 Discharge Plan Disposition Patient Disposition: HOME Condition: Stable Discharge Details Reason For Visit: Left Carpal Tunnel Syndrome Attending Provider: Neptali Espinosa Primary Care Provider: Kristopher Fry Home Meds and New Rx's Prescriptions: Continued multivitamin tablet 1 tab PO DAILY RF: 0 calcium-magnesium 500-250 mg tablet 1 tab PO DAILY RF: 0 cyanocobalamin (vitamin B-12) 500 mcg tablet 500 mcg PO DAILY RF: 0 amoxicillin 500 mg capsule 2,000 mg PO ONCE RF: 0 ferrous gluconate 324 mg (37.5 mg iron) tablet 324 mg PO DAILY RF: 0 vitamin B complex [B Complex-Vitamin B12] Tablet 1 tab PO DAILY RF: 0 hydrocodone-acetaminophen 5-325 mg tablet 1 tab PO Q6H PRNQty: 5 RF: 0 acetaminophen [Tylenol Extra Strength] 500 mg tablet 500 mg PO Q6H PRNQty: 90 RF: 0 ibuprofen 600 mg tablet 600 mg PO TID Qty: 90 RF: 0 Discharge Instructions Stand Alone Forms: Jesús Pritchett Tunnel Release Referrals: Neptali Espinosa MD [ [facility] STAFF PHYSICIAN] - Activity:: Activity as Tolerated Remove Dressings/Wound Care:: 72 hours Shower/Bathe:: 72 hours Diet:: As Tolerated Discharge Orders Discharge Orders: Discharge Order (Routine); Ordered 01/27/21 Ordered By: Mary Celestin DS: Diagnosis Discharge Diagnosis (1) Left carpal tunnel syndrome: Status: Acute Documented by User: Neptali Espinosa MD 01/27/21 10:28 Discharge Plan Disposition Patient Disposition: HOME Condition: Stable Discharge Details Reason For Visit: Left Carpal Tunnel Syndrome Attending Provider: Neptali Espinosa Primary Care Provider: Kristopher Fry Home Meds and New Rx's Prescriptions: Continued multivitamin tablet 1 tab PO DAILY RF: 0 calcium-magnesium 500-250 mg tablet 1 tab PO DAILY RF: 0 cyanocobalamin (vitamin B-12) 500 mcg tablet 500 mcg PO DAILY RF: 0 amoxicillin 500 mg capsule 2,000 mg PO ONCE RF: 0 ferrous gluconate 324 mg (37.5 mg iron) tablet 324 mg PO DAILY RF: 0 vitamin B complex [B Complex-Vitamin B12] Tablet 1 tab PO DAILY RF: 0 hydrocodone-acetaminophen 5-325 mg tablet 1 tab PO Q6H PRNQty: 5 RF: 0 acetaminophen [Tylenol Extra Strength] 500 mg tablet 500 mg PO Q6H PRNQty: 90 RF: 0 ibuprofen 600 mg tablet 600 mg PO TID Qty: 90 RF: 0 Discharge Instructions Stand Alone Forms: Jesús Pritchett Tunnel Release Referrals: Neptali Espinosa MD [ [facility] STAFF PHYSICIAN] - Activity:: Activity as Tolerated Remove Dressings/Wound Care:: 72 hours Shower/Bathe:: 72 hours Diet:: As Tolerated Discharge Orders Discharge Orders: Discharge Order (Routine); Ordered 01/27/21 Ordered By: Mary Celestin
[2021-01-27 07:38] VITALS: BP 112/63; PULSE 67; RESP 16; TEMP 36.9; O2SAT 96
[2021-01-27] MEDS: Lactated Ringers 1,000 ML 80 ML IV (08:02)
--- NOTE | 2021-01-27 08:14 | ANES.PREOP_ITS ---
General Info Date of Service Date Performed: 01/27/21 Height: 5 ft 10 in Weight: 91.8 kg Body Mass Index (BMI): 29.0 Surgical Procedure: Operation Date: 01/27/21 09:25 Proposed Procedures Side Surgeon p Wrist ECTR Left Neptali Espinosa MD Meds Allergies and Home Medications Allergies Allergy/AdvReac Type Severity Reaction Status Date / Time Sulfa (Sulfonamide Allergy Intermediate Skin Rash, Unverified 01/27/21 07:46 Antibiotics) hives, all red and blotchy Home Medication Medication Instructions Recorded calcium-magnesium 500 mg-250 mg 1 tab PO DAILY tab 01/16/19 tablet cyanocobalamin (vitamin B-12) 500 500 mcg PO DAILY 01/16/19 mcg tablet multivitamin 1 tab PO DAILY 01/16/19 amoxicillin 500 mg capsule 2,000 mg PO ONCE cap 09/16/20 ferrous gluconate 324 mg (37.5 mg 324 mg PO DAILY 09/16/20 iron) tablet vitamin B complex 1 tab PO DAILY 09/16/20 acetaminophen [Tylenol Extra 500 mg PO Q6H PRN #90 tab 12/02/20 Strength] hydrocodone-acetaminophen 1 tab PO Q6H PRN #5 tab 12/02/20 ibuprofen 600 mg PO TID #90 tab 12/02/20 Current Visit Medications: Current Medications Generic Name Dose Route Start Last Admin Trade Name Freq PRN Reason Stop Dose Admin Acetaminophen 650 mg 01/27/21 07:36 Acetaminophen 325 Mg Tab PO Q4H PRN PRN Hydrocodone Bitart/Acetaminophen 0 tab 01/27/21 07:36 Hydrocodone 5/Acetaminophen 325 Tab PO Q3H PRN PRN Pain Ringer's Solution 1,000 mls @ 80 mls/hr 01/27/21 06:00 01/27/21 08:02 IV 02/25/21 23:59 80 mls/hr INFUSION MEGAN Administration Cefazolin Sodium/Dextrose 2 gm in 50 mls @ 100 mls/hr 01/27/21 06:00 Ancef Duplex IVPB 02/25/21 23:59 PREOP MEGAN Ondansetron HCl 4 mg/ Sodium 52 mls @ 200 mls/hr 01/27/21 07:36 Chloride IVPB Q6H PRN PRN IV Miscellaneous Supplies 1 each 01/27/21 06:00 Iv Access IV 02/25/21 23:59 DIRECTED MEGAN Sodium Chloride 0 ml 01/27/21 06:00 Normal Saline Flush 10 Ml Syr IV 02/25/21 23:59 PRN PRN Sodium Chloride 0 ml 01/27/21 06:00 Normal Saline 10 Ml Vial IJ 02/25/21 23:59 DIRECTED PRN Sterile Water 0 ml 01/27/21 06:00 Water,Injection,Sterile 10 Ml Vial IJ 02/25/21 23:59 DIRECTED PRN PFSH Active Problems Active Problems: Problem Status Onset Code Left carpal tunnel syndrome G56.02 Right carpal tunnel syndrome G56.01 Anemia 03/09/18 D64.9 Chronic otitis media 09/23/13 H66.90 Chronic serous otitis media 09/23/13 H65.20 Conductive hearing loss 09/23/13 H90.2 Erythema migrans (Lyme disease) 02/05/18 A69.20 Mixed hearing loss 05/27/14 H90.8 Other disorders of Eustachian tube 05/26/14 H69.80 Partial tear of left rotator cuff 02/01/16 M75.112 Primary osteoarthritis of right hip 09/07/16 M16.11 Sensorineural hearing loss 05/27/14 H90.5 Trochanteric bursitis, right hip 12/27/17 M70.61 Tympanic membrane perforation 05/26/14 H72.90 Sprain of abdominal wall S39.011A Lumbar radicular syndrome M54.16 Trigger little finger of right hand M65.351 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 ear H90.A32 Medical History Medical History Actinic keratoses Anemia due to blood loss Asymptomatic varicose veins Back pain Chronic cough Contact dermatitis Diarrhea Fecal incontinence Fecal smearing Hand numbness History of snoring Hyperlipidemia Infection and inflammatory reaction due to internal right hip prosthesis, s equela Lumbar back pain Lumbar radiculopathy Macrocytic anemia 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 denies this Preventative health care Radicular pain Rash Rotator cuff syndrome Scrotal varices Skin lesion Spinal stenosis Varicose vein of leg Surgical History Surgical History Arthroscopy, Shoulder bilateral back surgery 10/2017 Extraction of cataract bilateral History of total replacement of right hip Right carpal tunnel syndrome S/P ECTR: 12/02/2020 Total replacement of hip 2017 anterior R Trigger little finger of right hand S/P release: 12/02/2020 Vasectomy Tobacco Smoking/Tobacco Use Status: Former Tobacco Use Alcohol Alcohol Intake: current Alcohol intake frequency: a few times a week Alcohol type: hard liquor Substance Use Substance use: Never Substance use type: does not use Vital Signs and Lab Results Vital Signs Most Recent Vital Signs in EMR: Most Recent Vital Signs Temp Pulse Resp BP Pulse Ox 36.9 C 67 16 112/63 96 01/27/21 07:38 01/27/21 07:38 01/27/21 07:38 01/27/21 07:38 01/27/21 07:38 Lab Results Blood Type / Crossmatch: No Data to Display Complete Blood Count: No Data to Display Complete Metabolic Panel: No Data to Display Liver Function Panel: No Data to Display Coagulation Panel: No Data to Display Cardiac Panel: No Data to Display Arterial Blood Gas: No Data to Display Venous Blood Gas: No Data to Display Pancreas Panel: No Data to Display Thyroid Panel: No Data to Display Infectious Disease: Coronavirus (COVID-19)(PCR) Negative (Negative) 01/25/21 09:58 01/25/21 Coronavirus 2019 Source Nasal/nares 01/25/21 09:58 01/25/21 Blood Cultures: No Data to Display Toxicology Panel: No Data to Display Imaging and Studies Imaging and Studies Echocardiogram Summary: Summary: 1. Left ventricle: The cavity size was normal. Systolic function was normal. The estimated ejection fraction was 60-65%. 2. Left atrium: The atrium was mildly dilated. 3. Right ventricle: The cavity size was normal. Wall thickness was normal. Systolic function was normal. 4. Right atrium: The atrium was mildly dilated. 5. Atrial septum: No defect or patent foramen ovale was identified. 6. Pulmonary arteries: Pulmonary systolic pressure was in the range of 40mm Hg to 50mm Hg. 7. Inferior vena cava: The vessel was normal in size. The respirophasic diameter changes were in the normal range (greater than or equal to 50%), consistent with normal central venous pressure. 11/07/16 Anesthesia Assessment and Plan Anesthesia History Personal History: No History of Anesthesia Complications Family History: No Family History of Anesthesia Complications Exercise Tolerance Exercise Tolerance: Metabolic Equivalents>4 Pertinent Negatives Pertinent Negatives: No Symptoms of GERD, No Major Cardiovascular Symptoms or Complaints and No Major Pulmonary Symptoms or Complaints Cardiac & Pulmonary Exam Cardiac Exam: Normal S1/S2 Heart Sounds Pulmonary Exam: Clear Bilateral Breath Sounds Airway Exam Known Difficult Airway: No Mallampati Class: 1 Mouth Opening: Normal (> 3cm) Thyromental Distance: Greater than 3 cm Neck Range of Motion: Full ROM Neck Circumference: Normal Teeth Condition: Normal Dentition and Removable Dentures/Plates Upper ASA Classification ASA Score: ASA 2 Emergency Case?: No NPO Status NPO Status: NPO Clears >2 hours, Solids >8 hours Anesthesia Plan Resuscitation Status: Full Code Anesthesia Technique: General Anesthesia Airway Planned: Natural Airway Monitors Used: Standard Monitors
[2021-01-27 08:20] VITALS: BMI 29.0
--- NOTE | 2021-01-27 09:44 | W.PREOPHP ---
Date of service: 01/27/21 Time of Service: 09:45 Assessment and Plan Assessment and plan (1) Left carpal tunnel syndrome: Status: Acute Assessment and plan: Parvez is a 75-year-old with carpal tunnel syndrome of the left side. He had a successful right sided release. He desires to proceed. I discussed the risk of the procedure to include bleeding, infection, pain, stiffness, damage to nerves, persistent numbness, need for repeat procedures, incomplete release. Despite these risks, he elects to proceed. History of Present Illness History of Present Illness Chief Complaint: Left Carpal Tunnel Syndrome Narrative: Parvez is a 75-year-old who I seen previously for bilateral carpal tunnel syndrome. He underwent a right carpal tunnel release with good results. Is here today for his left carpal tunnel release. He has had no change in symptoms. No new health issues. No medical issues. No sick contacts. No recent illnesses. No chest pain or shortness of breath. Review of Systems All systems reviewed & are unremarkable except as noted in HPI and below PFSH Medical History Actinic keratoses Anemia due to blood loss Asymptomatic varicose veins Back pain Chronic cough Contact dermatitis Diarrhea Fecal incontinence Fecal smearing Hand numbness History of snoring Hyperlipidemia Infection and inflammatory reaction due to internal right hip prosthesis, sequela Lumbar back pain Lumbar radiculopathy Macrocytic anemia 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 denies this Preventative health care Radicular pain Rash Rotator cuff syndrome Scrotal varices Skin lesion Spinal stenosis Varicose vein of leg Surgical History Arthroscopy, Shoulder bilateral back surgery 10/2017 Extraction of cataract bilateral History of total replacement of right hip Right carpal tunnel syndrome S/P ECTR: 12/02/2020 Total replacement of hip 2017 anterior R Trigger little finger of right hand S/P release: 12/02/2020 Vasectomy Social History Smoking/Tobacco Use Status: Former Tobacco Use Quit Date: 08/21/75 Smoking risk assessment performed?: Yes Alcohol Intake: current Alcohol Intake frequency: a few times a week Alcohol type: hard liquor Drug use: Never Substance use type: does not use Household members: spouse Housing: house Number of Children: 2 number of grandchildren: 2 current occupation: Retired Pets and animals: Yes What is your relationship status?: Panel score (0-1 are the most socially isolated patients): 1 What type of physical activity do you participate in: walking Frequency: daily Seatbelt use: always Do you feel safe at home: Yes Do you feel safe in your relationship?: Yes Meds Allergies and Home Medications Allergies Allergy/AdvReac Type Severity Reaction Status Date / Time Sulfa (Sulfonamide Allergy Intermediate Skin Rash, Unverified 01/27/21 07:46 Antibiotics) hives, all red and blotchy Home Medications Medication Instructions Recorded Confirmed Type calcium-magnesium 500 mg-250 mg 1 tab PO DAILY tab 01/16/19 01/27/21 History tablet cyanocobalamin (vitamin B-12) 500 500 mcg PO DAILY 01/16/19 01/27/21 History mcg tablet multivitamin 1 tab PO DAILY 01/16/19 01/27/21 History amoxicillin 500 mg capsule 2,000 mg PO ONCE cap 09/16/20 01/27/21 History ferrous gluconate 324 mg (37.5 mg 324 mg PO DAILY 09/16/20 01/27/21 History iron) tablet vitamin B complex 1 tab PO DAILY 09/16/20 01/27/21 History acetaminophen [Tylenol Extra 500 mg PO Q6H PRN #90 tab 12/02/20 01/27/21 Rx Strength] hydrocodone-acetaminophen 1 tab PO Q6H PRN #5 tab 12/02/20 01/27/21 Rx ibuprofen 600 mg PO TID #90 tab 12/02/20 01/27/21 Rx Exam Resp Effort & Inspection: normal respiratory effort Auscultation: clear to auscultation bilaterally Cardio Rate: regular rate Rhythm: regular rhythm Results Last Vital Signs Temp 36.9 C 01/27/21 07:38 Pulse 67 01/27/21 07:38 Resp 16 01/27/21 07:38 BP 112/63 01/27/21 07:38 Pulse Ox 96 01/27/21 07:38
[2021-01-27] MEDS: ceFAZolin 2 GM/50 ML BAG IVPB (09:54)
[2021-01-27] MEDS: Sodium Bicarbonate 50 MEQ/50 ML VIAL (09:58)
[2021-01-27 10:12] VITALS: BP 96/58; PULSE 66; RESP 14; TEMP 36.4; O2SAT 96
[2021-01-27 10:44] VITALS: BP 112/69; PULSE 69; RESP 16; TEMP 36.1; O2SAT 97
--- NOTE | 2021-01-27 10:44 | W.ANESPOSTOP ---
Postoperative Evaluation Date, Time and Location Date Performed: 01/27/21 Time Performed: 10:12 Patient Location: Day Surgery Unit Vital Signs Most Recent Imported Vital Signs: Most Recent Vital Signs Temp Pulse Resp BP Pulse Ox 36.4 C L 66 14 96/58 L 96 01/27/21 10:12 01/27/21 10:12 01/27/21 10:12 01/27/21 10:12 01/27/21 10:12 Pain Score Most Recent Pain Score: Most Recent Pain Score Pain Level 0 01/27/21 10:12 Assessment Mental Status: Awake (Alert & Oriented to Patient Baseline) Airway and Respiratory Function: Patent airway with normal (patient baseline) respiratory exam Cardiovascular Function: Hemodynamically Stable Hydration Status: Adequately Hydrated Nausea & Vomiting: No Nausea or Vomiting Pain: Pt. Denies Any Pain Peripheral Nerve Block: Patient did not receive a nerve block
--- NOTE | 2021-01-27 11:10 | W.PM.OP ---
Date of service: 01/27/21 Time of Service: 10:24 Operative Note Operative Note DATE OF PROCEDURE: 01/27/21 PRE-OP DIAGNOSIS: Left Carpal Tunnel Syndrome POST-OP DIAGNOSIS: same PROCEDURE: Left Endoscopic Carpal Tunnel Release SURGEON: Neptali Espinosa Refer to Anesthesia Record ESTIMATED BLOOD LOSS: 0 PATHOLOGY: none sent TOURNIQUET TIME: 6 COMPLICATIONS: None Patient was transported to: same day Patient's condition: stable Indications: I have seen Parvez in clinic for symptoms of carpal tunnel syndrome. The numbness, tingling, and pain limited function. Clinical exam findings with nerve conduction tests confirmed the diagnosis of carpal tunnel syndrome. Nonoperative measures such as bracing, time, activity modifications had been tried but disability and pain persisted. I discussed carpal tunnel release with the patient. I reviewed the risks of the procedure to include, but not limited to, bleeding, infection, pain, stiffness, incomplete release, damage to nerves or vessels, persistent numbness, recurrence. Despite these risks, the patient elected to proceed. Findings: There was tightened carpal tunnel. This was dilated and released successfully with the endoscopic with increased space within the tunnel. The antebrachial fascia was released proximally freeing the median nerve at the wrist. Procedure Description: Parvez was greeted in the preoperative holding area where the correct side was identified and marked. The consent was reviewed with the patient and signed. The history and physical was updated. All questions were answered. He was taken back to the operating room. The patient was placed into the supine position on the operating room table with the left arm on an arm board. A nonsterile tourniquet was placed high onto the arm. All bony prominences were well padded. Prophylactic antibiotics in the form of Cefazolin were administered. The left arm was then prepped with Chloraprep and draped in a standard fashion with stockinette and extremity drape. A timeout to confirm correct identity, side and site, procedure, allergies, anesthesia, and medical concerns was performed. The surgical site was marked in the volar wrist creases in line with the radial border of the fourth ray. This area was anesthetized with approximately 6cc of 1% Lidocaine. The limb was then exsanguinated with an Esmarch. The skin was incised with a 15 blade, approximately 1cm. The skin only was cut and the deeper tissue was dissected bluntly with a tenotomy scissor, avoiding passing nerve and venous structures. The fascia was penetrated and opened bluntly. A two-prong skin hook was placed under this proximal fascial edge. A series of hamate finders were used to identify and dilate the carpal tunnel. Synovial elevator was used to free synovial attachments to the underside of the transverse carpal ligament. My thumb was kept in the palm to josé luis the distal extent of the carpal tunnel and correctly position the hand. The [employer] endoscope was inserted without difficulty and without resistance. Excellent visualization showed horizontally running fibers of the transverse carpal ligament (TCL). The distal extent of the TCL was visualized and the end of the scope palpated with the thumb. The blade was elevated and withdrawn from distal to proximal. The TCL was split into two flaps. The endoscope was reinserted to confirm complete release and any remnant ligament was incised. The scope was withdrawn and the proximal aspect of the carpal tunnel was grossly inspected and appeared release with the median nerve visible. The antebrachial fascia at the level of the wrist was then freed from the overlying skin and then the underlying median nerve with blunt dissection. This was transected longitudinally for about 3cm proximal to the wrist incision. The wound was then irrigated with easy flow of irrigant distally and proximally. The incision was closed with a single 4-0 Nylon suture. The wound was dressed with Xeroform, Gauze, Kerlix and Luciano. The tourniquet was deflated with the initial dressing and held with some pressure. Blood flow returned easily to all digits with capillary refill less than 2 seconds. The patient tolerated the procedure well and was returned to the Same Day Surgery area in a stable condition suffering no known complication.
== END 2021-01-27 11:00 | disposition home or self-care (01) ==
PROVIDERS: PCP Internal Medicine; Visit Provider Student in an Organized Health Care Education/Training Program
PROC: 01N54ZZ Release Median Nerve, Percutaneous Endoscopic Approach (ICD-10-PCS; CPT 29848; principal; 2021-01-27 09:15)
DX: G56.02 Carpal tunnel syndrome, left upper limb (principal); R73.03 Prediabetes; E78.5 Hyperlipidemia, unspecified
CPT/HCPCS: 29848; J0690; J1885; J2001; J2704

== ENCOUNTER → 2021-02-04 09:30 | Outpatient (BNVA) | payer MEDICARE, BC, SELFPAY | PROVIDERS: PCP Internal Medicine; Referring Provider Internal Medicine; Visit Provider Student in an Organized Health Care Education/Training Program | DX: Z47.89 Encounter for other orthopedic aftercare (principal) ==

== ENCOUNTER 2021-03-05 08:25 | Outpatient (REF) | payer MEDICARE, BC, SELFPAY ==
[2021-03-05 21:16] LABS: Crystals (BF) No Crystals seen; Source Synovial
[2021-03-05 21:21] LABS: Clarity Cloudy; Source Synovial
[2021-03-05 21:52] LABS: Mononuclear Cells 5 %; Polynuclear Cells 95 %
== END 2021-03-05 08:26 | disposition home or self-care (01) ==
LOC: NCHCN 08:25
PROVIDERS: PCP Internal Medicine; Visit Provider Internal Medicine
DX: M70.50 Other bursitis of knee, unspecified knee (principal)
CPT/HCPCS: 87102; 87206; 87070; 87205; 89051; 89060

== ENCOUNTER 2021-03-06 09:29 | Emergency (ER) | payer MEDICARE, BC, SELFPAY ==
[2021-03-06 09:34] VITALS: BP 109/60; PULSE 78; RESP 16; TEMP 36.8; O2SAT 98
--- NOTE | 2021-03-06 09:47 | W.ED.GENAD ---
Discharge Plan Disposition Patient Disposition: HOME Condition: Stable Discharge Details Clinical Impression: Infection of bursa, Infrapatellar bursitis Primary Care Provider: Kristopher Fry ED Provider: Lucille Wan Home Meds and New Rx's Prescriptions: New ciprofloxacin HCl 500 mg tablet 500 mg PO BID Qty: 14 RF: 0 Continued multivitamin tablet 1 tab PO DAILY RF: 0 calcium-magnesium 500-250 mg tablet 1 tab PO DAILY RF: 0 amoxicillin 500 mg capsule 2,000 mg PO ONCE RF: 0 ferrous gluconate 324 mg (37.5 mg iron) tablet 324 mg PO DAILY RF: 0 vitamin B complex [B Complex-Vitamin B12] Tablet 1 tab PO DAILY RF: 0 hydrocodone-acetaminophen 5-325 mg tablet 1 tab PO Q6H PRNQty: 5 RF: 0 acetaminophen [Tylenol Extra Strength] 500 mg tablet 500 mg PO Q6H PRNQty: 90 RF: 0 ibuprofen 600 mg tablet 600 mg PO TID Qty: 90 RF: 0 clindamycin HCl 300 mg capsule 300 mg PO TID RF: 0 Discharge Instructions Instructions: Knee Bursitis (ED) Additional Instructions: Exam and labs do show that you have an infected bursa of your knee. Please stop the clindamycin and begin the ciprofloxacin as was advised by Dr. Espinosa. He will call you in the next few days to discuss any continued symptoms. Please call the office on Monday to schedule follow-up appointment. If you develop increased swelling, erythema, fever/chills or other new/worsening symptoms please seek care urgently once again. Please continue with your probiotic. Referrals: Neptali Espinosa MD [ [facility] STAFF PHYSICIAN] - Kristopher Fry MD [Primary Care Provider] - Medical Decision Making Patient is a pleasant 75-year-old gentleman presenting today with chief complaint of right knee pain. Reports that he was told he had an infected right knee. Had aspiration completed yesterday at his primary care office. He denies any fevers or chills. Patient reports he has chronic swelling of his bursa which he associates with previous work experience. However, has noted increased discomfort over the past several days, particularly when kneeling or pressure is applied to the anterior aspect. States he is otherwise feeling well. On exam, patient appears nontoxic. Vital signs are stable. He has swelling in the inferior patellar region, consistent with infrapatellar bursitis. Has a small puncture wound consistent with where the aspiration had been obtained. No erythema, warmth. No drainage. No joint effusion. Reviewed note from Dr. Fry. Patient's been placed empirically on clindamycin. Patient reports 2 doses thus far. Review of the lab result she has a culture was positive for rare gram-positive cocci. Patient has been referred to orthopedics for follow-up appointment. Patient is questioning if this could be from foreign body. States that he was kneeling recently on his garage floor while working with metal and is questioning if he may have gotten a metal splinter into his bursa. Will obtain x-ray to evaluate for potential retained foreign body. Consulted with Dr. Espinosa. He advised changing patient to Ciprofloxacin based on history. He advised that he will call the patient and discuss in a few days. ADvised that if needed, bursa may come out at a later date. He does not feel that plan is to change if foreign body is evident on x-ray. Patient reports he is already on a probiotic. X-rays reviewed by myself, I do not appreciate any foreign body but the calcifications palpable on exam is evident. We discussed Dr. Espinosa's recommendations. His last tetanus was in 2006, will update this today. Strict return precautions were discussed, in particular signs of worsening infection. All of his questions and concerns were addressed and he is in agreement with this plan. HPI General Mode of arrival: ambulatory. Date/Time Provider Initiated Documentation: 03/06/21 09:31. Limitations to Documentation: no limitations. Information obtained by: patient, family () and RN notes reviewed. History of Present Illness 75 year old M presents to the emergency department with the chief complaint of right knee pain, infection, described as mild (denies any pain currently), and is localized to the right and lower extremity. Patient reports no radiation. Patient started experiencing this day(s) and it has been constant. Immobilization improves symptom(s), Movement worsens symptoms (pressure on the knee) . Patient notes no other symptoms.. Patient did receive the following treatments prior to arrival, other (clindamycin) Related Data Home Medications Medication Instructions Recorded Confirmed calcium-magnesium 500 mg-250 mg 1 tab PO DAILY tab 01/16/19 03/06/21 tablet multivitamin 1 tab PO DAILY 01/16/19 03/06/21 amoxicillin 500 mg capsule 2,000 mg PO ONCE cap 09/16/20 03/06/21 ferrous gluconate 324 mg (37.5 mg 324 mg PO DAILY 09/16/20 02/04/21 iron) tablet vitamin B complex 1 tab PO DAILY 09/16/20 03/06/21 acetaminophen [Tylenol Extra 500 mg PO Q6H PRN #90 tab 12/02/20 03/06/21 Strength] hydrocodone-acetaminophen 1 tab PO Q6H PRN #5 tab 12/02/20 02/04/21 ibuprofen 600 mg PO TID #90 tab 12/02/20 03/06/21 ciprofloxacin HCl 500 mg PO BID #14 tab 03/06/21 clindamycin HCl 300 mg PO TID 03/06/21 03/06/21 Previous Rx's Medication Instructions Recorded acetaminophen [Tylenol Extra 500 mg PO Q6H PRN #90 tab 12/02/20 Strength] hydrocodone-acetaminophen 1 tab PO Q6H PRN #5 tab 12/02/20 ibuprofen 600 mg PO TID #90 tab 12/02/20 ciprofloxacin HCl 500 mg PO BID #14 tab 03/06/21 Allergies Allergy/AdvReac Type Severity Reaction Status Date / Time Sulfa (Sulfonamide Allergy Intermediate Skin Rash, Unverified 02/04/21 09:14 Antibiotics) hives, all red and blotchy General Stated Complaint: Orthopedic ITZ: 3 Review of Systems Constitutional Constitutional: Reports as per HPI, Denies chills, Denies fever(s), Denies headache(s) and Denies weakness ENT Ears, Nose, Mouth, and Throat: Denies headache(s) Cardiovascular Cardiovascular: Reports as per HPI Respiratory Respiratory: Reports as per HPI and Denies cough Musculoskeletal Musculoskeletal: Reports as per HPI and Denies tingling Integumentary/Breasts Skin/Breast: Reports as per HPI, Denies rash and Denies wounds Neurologic Neurologic: Reports as per HPI, Denies headache(s), Denies tingling, Denies paresthesias and Denies weakness [facility] Medical History Actinic keratoses Anemia due to blood loss Asymptomatic varicose veins Back pain Chronic cough Contact dermatitis Diarrhea Fecal incontinence Fecal smearing Hand numbness History of snoring Hyperlipidemia Infection and inflammatory reaction due to internal right hip prosthesis, sequela Lumbar back pain Lumbar radiculopathy Macrocytic anemia 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 denies this Preventative health care Radicular pain Rash Rotator cuff syndrome Scrotal varices Skin lesion Spinal stenosis Varicose vein of leg Surgical History Arthroscopy, Shoulder bilateral back surgery 10/2017 Extraction of cataract bilateral History of total replacement of right hip Left carpal tunnel syndrome S/P ECTR: 01/27/2021 Right carpal tunnel syndrome S/P ECTR: 12/02/2020 Total replacement of hip 2017 anterior R Trigger little finger of right hand S/P release: 12/02/2020 Vasectomy Social History Smoking/Tobacco Use Status: Former Tobacco Use Quit Date: 08/21/75 Smoking risk assessment performed?: Yes Alcohol Intake: current Alcohol Intake frequency: a few times a week Alcohol type: hard liquor Drug use: Never Substance use type: does not use Household members: spouse Housing: house Number of Children: 2 number of grandchildren: 2 current occupation: Retired Pets and animals: Yes What is your relationship status?: Panel score (0-1 are the most socially isolated patients): 1 What type of physical activity do you participate in: walking Frequency: daily Seatbelt use: always Do you feel safe at home: Yes Do you feel safe in your relationship?: Yes Exam Const General: cooperative, healthy appearing, comfortable, no acute distress, well developed and well groomed Nutritional Appearance: average body habitus and well nourished Orientation: alert and awake Resp Effort & Inspection: normal respiratory effort, able to speak in complete sentences and no respiratory distress Auscultation: clear to auscultation bilaterally Cardio Rate: regular rate Rhythm: regular rhythm Heart Sounds: S1 normal and S2 normal Skin Trauma: puncture (area from recent drainage is visualized on right knee) Neuro General: patient alert and patient awake Cognition: normal cognition Speech: speech normal Gait: normal gait Motor: muscle tone normal throughout Sensory Exam: no sensory deficits noted Extrem Knee images: 1. Area of swelling. Patient is 2+ distal pulses. Full range of motion of the knee. He does report some tight with full flexion. Able to straight leg raise. No joint effusion. No surrounding erythema, warm. Puncture wound is noted consistent with a drainage site from yesterday. Area is most consistent with an infrapatellar bursitis. Calcification is palpable, particularly in the medial aspect of the area of swelling. Psych Appearance: grossly normal and well kempt Mental Status: mental status grossly normal Speech and Movement: speech and movement normal Course Vital Signs Vital signs: Vital Signs Temperature 36.8 C 03/06/21 09:34 Pulse 78 03/06/21 09:34 Respiratory Rate 16 03/06/21 09:34 Blood Pressure 109/60 03/06/21 09:34 Pulse Oximetry 98 03/06/21 09:34 Temperature 36.8 C 03/06/21 09:34 Temperature Source Skin 03/06/21 09:34 Pulse 78 03/06/21 09:34 Respiratory Rate 16 03/06/21 09:34 Respiratory Effort Non-Labored 03/06/21 09:37 Blood Pressure 109/60 03/06/21 09:34 Blood Pressure Position Sitting 03/06/21 09:34 Pulse Oximetry 98 03/06/21 09:34 Oxygen Delivery Method Room Air 03/06/21 09:34 Oxygen Flow Rate 0 03/06/21 09:34
--- NOTE | 2021-03-06 10:00 | DI.RAD_ITS ---
Exam(s) XR KNEE RT 4V AP,LAT,MARCE,PAT EXAM: XR KNEE RT 4V AP,LAT,MARCE,PAT CLINICAL HISTORY: swollen bursa, concerned for metal FB. TECHNIQUE: 2D digital imaging was performed. COMPARISON: No exams were available for comparison FINDINGS: There is no evidence of acute fracture or joint effusion and there is no prominent joint space narrow ing. The main finding here is soft tissue swelling and multiple clustered calcifications anterior to the d istal patellar insertion anterior tibial tubercle region. Probably calcific bursitis at this level. This appears to be probably separate from the actual inferior patellar ligament itself. IMPRESSION: As above. Recommend follow-up MRI for added specificity. DATA REPOSITORY: RADIATION DOSE DELIVERED:
--- NOTE | 2021-03-06 11:05 | DI.VRAD_ITS ---
PROCEDURE INFORMATION: Exam: XR Left Knee Exam date and time: 03/06/2021 10:02 AM Age: 75 years old Clinical indication: Pain; Knee; Right; Patient HX: Swollen bursa concerned for metal foreign body? TECHNIQUE: Imaging protocol: XR Left knee. Views: 4 or more views. COMPARISON: No relevant prior studies available. FINDINGS: Bones/joints: Clustered calcifications along the anterior proximal tibia at the level of the patella tendon insertion with overlying soft tissue swelling. This may be related to sequelae of chronic tendinopathy and/or chronic infrapatella bursitis (AKA clergyman's knee). No acute fracture. Mild tricompartmental osteoarthritis is noted. There is a superior patellar enthesophyte at the quadriceps insertion. Fabella is noted. Soft tissues: See Bones/joints finding. IMPRESSION: Clustered calcifications along the anterior proximal tibia at the level of the patella tendon insertion with overlying soft tissue swelling. This may be related to sequelae of chronic tendinopathy and/or chronic infrapatella bursitis (AKA clergyman's knee?). Dictated and Authenticated by: Ben Grimaldo MD. Ordering:TJ Adkins MD
== END 2021-03-06 10:51 | disposition home or self-care (01) ==
PROVIDERS: Emergency Provider Physician Assistant; PCP Internal Medicine
DX: M71.161 Other infective bursitis, right knee (principal)
CPT/HCPCS: 90471; 99284; 73564; 99283

== ENCOUNTER → 2021-03-29 09:25 | Outpatient (BNVA) | payer MEDICARE, BC, SELFPAY | PROVIDERS: PCP Internal Medicine; Referring Provider Internal Medicine; Visit Provider Student in an Organized Health Care Education/Training Program | DX: M70.51 Other bursitis of knee, right knee (principal) | CPT/HCPCS: 99213 ==

== ENCOUNTER 2021-05-29 11:58 | Emergency (ER) | payer MEDICARE, BC, SELFPAY ==
--- NOTE | 2021-05-29 12:00 | RT.EKG_ITS ---
APPROVED REPORT Exam: Resting ECG Reason for Exam: chest pain Patient Location: E HR:81 bpm ECG Measurements Heart Rate 81 AXIS TN 169 P 63 QRSd 87 QRS -3 QT 401 T 34 QTc 448 Conclusion Sinus rhythm...normal P axis, V-rate 60- 99
[2021-05-29 12:05] VITALS: BP 134/67; PULSE 69; RESP 18; TEMP 36.6; O2SAT 99
--- NOTE | 2021-05-29 13:00 | DI.RAD_ITS ---
Exam(s) XR PORTABLE CHEST AP EXAM: XR PORTABLE CHEST AP CLINICAL HISTORY: cough, chest pain earlier. TECHNIQUE: 2D digital imaging was performed. COMPARISON: Chest x-ray February 2018 FINDINGS: Heart size is upper normal. The mediastinum is not widened. Lungs are clear. No infiltrates nor obvious pleural effusions. Chest leads in place. Again noted is evidence of prior right shoulder surgery. IMPRESSION: No acute pulmonary findings on this single AP portable view of the chest. DATA REPOSITORY: RADIATION DOSE DELIVERED: All CT scans at this facility use at least one of these dose optimization techniques: automated exposure control; mA and/or kV adjustment per patient size (includes targeted e xams where dose is matched to clinical indication); or iterative reconstruction.
[2021-05-29 13:02] LABS: Abs Immature Grans 0.02 10^3/uL (0.0-0.06); Absolute Basophil Count 0.02 10^3/uL (0.0-0.2); Absolute Eosinophil Count 0.06 10^3/uL (0.0-0.7); Absolute Lymphocyte Count 1.73 10^3/uL (1.2-3.4); Absolute Monocyte Count 0.67 10^3/uL (0.1-0.8); Absolute Neutrophil Count 4.84 10^3/uL (1.2-6.7); Basophils % 0.3; Eosinophils % 0.8; HCT 35.9 % (40.0-50.0); HGB 11.6 g/dL (13.5-17.5); Immature Grans % 0.3; Lymphocytes % 23.6; MCH 32.3 pg (27.0-33.0); MCHC 32.3 % (32.0-36.0); MPV 9.1 fL (8.0-11.0); Monocytes % 9.1; Neutrophils % 65.9; Nucleated RBC 0 %; Platelet Count 185 10^3/uL (130-400); RBC 3.59 10^6/uL (4.36-5.78); RDW 14.3 % (11.8-14.1); RDW-SD 52.2 fL; WBC 7.34 10^3/uL (4.4-10.8)
[2021-05-29 13:25] LABS: Source Nasal/Nares
[2021-05-29 13:27] LABS: ALT 28 U/L (16-63); AST 24 U/L (15-37); Albumin 3.6 g/dL (3.4-5.0); Alkaline Phosphatase 52 U/L (46-116); Anion Gap 6.3 mmol/L (3-11); BUN 16 mg/dL (7-18); Bilirubin, Total 0.4 mg/dL (0.2-1.0); CO2 29.7 mmol/L (21.0-32.0); CREATININE 1.1 mg/dL (0.70-1.30); Chloride 102 mmol/L (98-107); Glucose 109 mg/dL (74-106); Magnesium 2.2 mg/dL (1.8-2.4); Potassium 4.3 mmol/L (3.5-5.1); Sodium 138 mmol/L (136-145); TSH (W/Ref FT4) 1.82 uIU/mL (0.36-3.74); Total Protein 8.1 g/dL (6.4-8.2); Troponin I < 0.05 ng/mL (<0.06)
--- NOTE | 2021-05-29 13:56 | ED.GENADUL_ITS ---
Discharge Plan Disposition Patient Disposition: HOME Condition: Stable Discharge Details Clinical Impression: Intermittent palpitations, Chest pain Primary Care Provider: Kristopher Fry ED Provider: Soto Mackenzie Home Meds and New Rx's Prescriptions: Continued multivitamin tablet 1 tab PO DAILY RF: 0 calcium-magnesium 500-250 mg tablet 1 tab PO DAILY RF: 0 amoxicillin 500 mg capsule 2,000 mg PO ONCE RF: 0 vitamin B complex [B Complex-Vitamin B12] Tablet 1 tab PO DAILY RF: 0 acetaminophen [Tylenol Extra Strength] 500 mg tablet 500 mg PO Q6H PRNQty: 90 RF: 0 ibuprofen 600 mg tablet 600 mg PO TID Qty: 90 RF: 0 aspirin 81 mg Tablet,Delayed Release (Dr/Ec) 81 mg PO DAILY RF: 0 ascorbic acid (vitamin C) [Vitamin C] 500 mg Tablet 500 mg PO DAILY RF: 0 cholecalciferol (vitamin D3) [Vitamin D3] 50 mcg (2,000 unit) Capsule 50 mcg PO DAILY RF: 0 Discontinued ferrous gluconate 324 mg (37.5 mg iron) tablet 324 mg PO DAILY RF: 0 hydrocodone-acetaminophen 5-325 mg tablet 1 tab PO Q6H PRNQty: 5 RF: 0 clindamycin HCl 300 mg capsule 300 mg PO TID RF: 0 ciprofloxacin HCl 500 mg tablet 500 mg PO BID Qty: 14 RF: 0 Discharge Instructions Instructions: Chest Pain (ED), Heart Palpitations (ED) Additional Instructions: Please continue take aspirin 81 mg daily. Please follow-up with your primary care physician on Monday. You should have a stress test performed as soon as possible and ideally within the next 72 hours. Return the Holter environmental monitoring specialist as instructed by staff. Return to the ER immediately for any worsening or new concerning symptoms. Referrals: Kristopher Fry MD [Primary Care Provider] - Discharge Data Discharge Date/Time-TO BE ENTERED AT DEPARTURE: 05/29/21 17:05 Medical Decision Making 1400 --75-year-old male with most medical problems here with palpitations, chest tightness, coughing with intermittent shortness of breath as well as concerned that pulse is intermittently pausing. EKG to assess for arrhythmia was reviewed and interpreted by me: Sinus rhythm 81 bpm, PVCs are noted, no STEMI. Consider ACS. Plan to check troponin. Patient has had tick bites and is outdoors in the [place] often. Consider Lyme disease. I will send tick panel. -- Labs reviewed and nondiagnostic. Patient reassessed and has remained stable with no arrhythmia. Plan for outpatient followup. Disposition decision was made weighing the risks and benefits of hospitalization versus outpatient treatment, the risk for further decompensation, and the patient's wishes. The patient was stable and requested discharge. Prior to discharge, my usual and customary return precautions were reviewed with the patient - this included follow-up instructions and reason to return to the emergency department if condition worsens, does not improve as expected, or other new concerns arise. HPI General Mode of arrival: ambulatory . Date/Time Provider Initiated Documentation: 05/29/21 12:49 . Limitations to Documentation: no limitations . Information obtained by: patient . HPI Narrative: 75-year-old male with multimedical problems here with chief complaint of palpitations. Patient notes that last night he developed fluttering in his chest. This lasted a few minutes and resolved. He subsequently had some coughing and has continued to have intermittent coughing as well as intermittent mild chest tightness with shortness of breath. Patient notes he has felt his pulse at times today and is concerned with infrequent pauses. Symptoms moderate with no modifiers. At this time he has no chest pain, no shortness of breath, and no palpitations Patient does celis frequently and has had tick bites in the past. No recent bite. Patient notes sinus congestion for a few weeks. Related Data Home Medications Medication Instructions Recorded Confirmed calcium-magnesium 500 mg-250 mg 1 tab PO DAILY tab 01/16/19 05/29/21 tablet multivitamin 1 tab PO DAILY 01/16/19 05/29/21 amoxicillin 500 mg capsule 2,000 mg PO ONCE cap 09/16/20 03/29/21 vitamin B complex 1 tab PO DAILY 09/16/20 05/29/21 acetaminophen [Tylenol Extra 500 mg PO Q6H PRN #90 tab 12/02/20 03/29/21 Strength] ibuprofen 600 mg PO TID #90 tab 12/02/20 05/29/21 ascorbic acid (vitamin C) [Vitamin 500 mg PO DAILY 05/29/21 05/29/21 C] aspirin 81 mg PO DAILY 05/29/21 05/29/21 cholecalciferol (vitamin D3) 50 mcg PO DAILY 05/29/21 05/29/21 [Vitamin D3] Previous Rx's Medication Instructions Recorded acetaminophen [Tylenol Extra 500 mg PO Q6H PRN #90 tab 12/02/20 Strength] ibuprofen 600 mg PO TID #90 tab 12/02/20 Allergies Allergy/AdvReac Type Severity Reaction Status Date / Time Sulfa (Sulfonamide Allergy Intermediate Skin Rash, Unverified 05/29/21 12:10 Antibiotics) hives, all red and blotchy General Stated Complaint: Palpitatns ITZ: 3 Review of Systems All systems reviewed & are unremarkable except as noted in HPI and below Constitutional Constitutional: Denies fever(s) Cardiovascular Cardiovascular: Reports as per HPI Respiratory Respiratory: Reports as per HPI [facility] Medical History Actinic keratoses Anemia due to blood loss Asymptomatic varicose veins Back pain Chronic cough Contact dermatitis Diarrhea Fecal incontinence Fecal smearing Hand numbness History of snoring Hyperlipidemia Infection and inflammatory reaction due to internal right hip prosthesis, sequela Lumbar back pain Lumbar radiculopathy Macrocytic anemia 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 denies this Preventative health care Radicular pain Rash Rotator cuff syndrome Scrotal varices Skin lesion Spinal stenosis Varicose vein of leg Surgical History Arthroscopy, Shoulder bilateral back surgery 10/2017 Extraction of cataract bilateral History of total replacement of right hip Left carpal tunnel syndrome S/P ECTR: 01/27/2021 Right carpal tunnel syndrome S/P ECTR: 12/02/2020 Total replacement of hip 2017 anterior R Trigger little finger of right hand S/P release: 12/02/2020 Vasectomy Social History Smoking/Tobacco Use Status: Former Tobacco Use Quit Date: 08/21/75 Smoking risk assessment performed?: Yes Alcohol Intake: current Alcohol Intake frequency: a few times a month Alcohol type: hard liquor Drug use: Never Substance use type: does not use Household members: spouse Housing: house Number of Children: 2 number of grandchildren: 2 current occupation: Retired Pets and animals: Yes What is your relationship status?: Panel score (0-1 are the most socially isolated patients): 1 What type of physical activity do you participate in: walking Frequency: daily Seatbelt use: always Do you feel safe at home: Yes Do you feel safe in your relationship?: Yes Exam Const General: cooperative and no acute distress HENMT Head: normocephalic Mouth: moist mucous membranes Eyes Conjunctivae: normal conjunctivae Sclera: normal sclerae Neck Neck: trachea midline and supple Resp Auscultation: clear to auscultation bilaterally, no rales, no rhonchi and no wheezes Cardio Rate: regular rate and not tachycardic Rhythm: regular rhythm GI Palpation: soft, not firm, no guarding, no masses, not rigid and nontender Skin General skin exam: no rashes or lesions noted Neuro General: patient alert, patient awake, patient oriented x3 and tone normal Extrem General: no calf tenderness and no edema Psych Appearance: grossly normal Mental Status: mental status grossly normal Speech and Movement: speech and movement normal Course Vital Signs Vital signs: Vital Signs Temperature 36.6 C 05/29/21 12:05 Pulse 69 05/29/21 12:05 Respiratory Rate 18 05/29/21 12:05 Blood Pressure 134/67 05/29/21 12:05 Pulse Oximetry 99 05/29/21 12:05 Temperature 36.6 C 05/29/21 12:05 Temperature Source Temporal Artery Scan 05/29/21 12:05 Pulse 69 05/29/21 12:05 Respiratory Rate 18 05/29/21 12:05 Respiratory Effort Non-Labored 05/29/21 12:14 Blood Pressure 134/67 05/29/21 12:05 Blood Pressure Position Sitting 05/29/21 12:05 Pulse Oximetry 99 05/29/21 12:05 Oxygen Delivery Method Room Air 05/29/21 12:05 Oxygen Flow Rate 0 05/29/21 12:05 Lab/Test Results Lab/Test Results: Laboratory Tests Range/Units 05/29/21 05/29/21 05/29/21 12:45 12:45 13:20 WBC (4.4-10.8) 10^3/uL 7.34 RBC (4.36-5.78) 10^6/uL 3.59 L Hgb (13.5-17.5) g/dL 11.6 L Hct (40.0-50.0) % 35.9 L MCV (80-95) fL 100.0 H MCH (27.0-33.0) pg 32.3 MCHC (32.0-36.0) % 32.3 RDW (11.8-14.1) % 14.3 H Plt Count (130-400) 10^3/uL 185 MPV (8.0-11.0) fL 9.1 Immature Gran % 0.3 Neutrophils % 65.9 Lymphocytes % 23.6 Monocytes % 9.1 Eosinophils % 0.8 Basophils % 0.3 Nucleated RBC % % 0 Absolute Neutrophils (1.2-6.7) 10^3/uL 4.84 Absolute Lymphocytes (1.2-3.4) 10^3/uL 1.73 Absolute Monocytes (0.1-0.8) 10^3/uL 0.67 Absolute Eosinophils (0.0-0.7) 10^3/uL 0.06 Absolute Basophils (0.0-0.2) 10^3/uL 0.02 Sodium (136-145) mmol/L 138 Potassium (3.5-5.1) mmol/L 4.3 Chloride (98-107) mmol/L 102 Carbon Dioxide (21.0-32.0) mmol/L 29.7 Anion Gap (3-11) mmol/L 6.3 BUN (7-18) mg/dL 16 Creatinine (0.70-1.30) mg/dL 1.1 Estimated GFR/1.73 m2 (mL/min/1.73m2) >= 60.00 Glucose (74-106) mg/dL 109 H Calcium (8.5-10.1) mg/dL 9.0 Magnesium (1.8-2.4) mg/dL 2.2 Total Bilirubin (0.2-1.0) mg/dL 0.4 AST (15-37) U/L 24 ALT (16-63) U/L 28 Alkaline Phosphatase (46-116) U/L 52 Troponin I (<0.06) ng/mL < 0.05 Total Protein (6.4-8.2) g/dL 8.1 Albumin (3.4-5.0) g/dL 3.6 TSH (0.36-3.74) uIU/mL 1.82 COVID-19 Source Nasal/Nares PAWSS Have you Been Recently Intoxicated or Drunk Within the Last 30 days?: No Have you Ever Experienced Previous Episodes of Alcohol Withdrawal?: No Have you ever Experienced Withdrawal Seizures?: No Have you ever Experienced Delirium Tremens(DT)s?: No Have you ever undergone Alcohol Rehabilitation Treatment (i.e, inpt ot outpati ent treatment programs)?: No Have you ever Experienced Blackouts?: No Have you ever Combined Alcohol with other Downers within the last 90 days?: No Have you ever Combined Alcohol with any other Substance of Abuse during the last 90 days?: No Positive Blood Alcohol level on Presentation? [PCS.BAL]: No Evidence of Increased Autonomic Activity (i.e. HR>120, tremor, sweating, agitation, nausea)?: No Result: 0
[2021-05-29 14:19] LABS: COVID-19 PCR Negative (Negative)
--- NOTE | 2021-05-29 15:08 | DI.VRAD_ITS ---
PROCEDURE INFORMATION: Exam: XR Chest Exam date and time: 05/29/2021 1:15 PM Age: 75 years old Clinical indication: Cough TECHNIQUE: Imaging protocol: XR of the chest. Views: 1 view. COMPARISON: CR CHEST 2 VIEWS PA,LAT 03/05/2018 1:33 PM FINDINGS: Lungs: Unremarkable. No consolidation. Pleural spaces: Unremarkable. No pleural effusion. No pneumothorax. Heart/Mediastinum: Unremarkable. No cardiomegaly. Bones/joints: Postoperative changes right shoulder. Degenerative changes without acute fracture. IMPRESSION: No acute disease of the chest and no significant interval change. Dictated and Authenticated by: Mahendra Jackson MD. Ordering:SALOMON Valera MD
[2021-05-29 16:22] LABS: Troponin I < 0.05 ng/mL (<0.06)
[2021-05-29 16:49] VITALS: BP 130/64; PULSE 70; RESP 17; TEMP 36.6; O2SAT 99
[2021-05-31 11:31] LABS: Lyme Ab w Rflx to Lyme Confirm Negative (Negative)
[2021-06-01 20:35] LABS: Anaplasma phagocytophilum Negative (Negative); B. miyamotoi PCR Negative (Negative); Babesia divergens/MO-1 Negative (Negative); Babesia duncani Negative (Negative); Babesia microti Negative (Negative); Ehrlichia chaffeensis Negative (Negative); Ehrlichia ewingii/canis Negative (Negative); Ehrlichia muris eauclairensis Negative (Negative)
== END 2021-05-29 17:05 | disposition home or self-care (01) ==
PROVIDERS: Emergency Provider Student in an Organized Health Care Education/Training Program; PCP Internal Medicine
DX: R00.2 Palpitations (principal); R07.9 Chest pain, unspecified; R06.02 Shortness of breath; R05.1 Acute cough
CPT/HCPCS: 36415; 80053; 87635; 87798; 93005; 99284; 71045; 83735; 84443; 84484; 85025; 86618; 93010; 93225

== ENCOUNTER 2021-05-29 16:31 | Outpatient (RCR) | payer MEDICARE, BC, SELFPAY ==
--- NOTE | 2021-05-29 16:30 | HOLTER_ITS ---
APPROVED REPORT Conclusion This is a 48-hour Holter monitor Predominant rhythm is sinus with an average heart rate of 78. Minimum was 52, maximum 131 There were no ventricular dysrhythmias There were rare atrial premature beats, very rare atrial pairs. There were three self-limited atrial runs, the longest of which was 7 beats in duration There was no atrial fibrillation. There was no high-grade AV block. There were no pauses greater th an 3 seconds. No patient symptoms were reported
== END 2021-06-20 23:59 | disposition home or self-care (01) ==
LOC: RT 16:31
PROVIDERS: PCP Internal Medicine; Visit Provider Student in an Organized Health Care Education/Training Program
DX: R00.2 Palpitations (principal); I49.1 Atrial premature depolarization
CPT/HCPCS: 93227; 93225; 93226

== ENCOUNTER 2021-12-06 09:44 | Outpatient (REF) | payer MEDICARE, BC, SELFPAY ==
[2021-12-06 16:37] LABS: Abs Immature Grans 0.02 10^3/uL (0.0-0.06); Absolute Basophil Count 0.03 10^3/uL (0.0-0.2); Absolute Eosinophil Count 0.59 10^3/uL (0.0-0.7); Absolute Lymphocyte Count 1.51 10^3/uL (1.2-3.4); Absolute Monocyte Count 0.86 10^3/uL (0.1-0.8); Absolute Neutrophil Count 3.93 10^3/uL (1.2-6.7); Basophils % 0.4; Eosinophils % 8.5; HCT 36.2 % (40.0-50.0); HGB 11.9 g/dL (13.5-17.5); Immature Grans % 0.3; Lymphocytes % 21.8; MCH 32.1 pg (27.0-33.0); MCHC 32.9 % (32.0-36.0); MCV 97.6 fL (80-95); MPV 9.4 fL (8.0-11.0); Monocytes % 12.4; Neutrophils % 56.6; Platelet Count 227 10^3/uL (130-400); RBC 3.71 10^6/uL (4.36-5.78); RDW 13.3 % (11.8-14.1); RDW-SD 47.8 fL; WBC 6.94 10^3/uL (4.4-10.8)
[2021-12-06 16:40] LABS: ESR 88 mm/hr (0-20)
[2021-12-06 16:58] LABS: ALT 28 U/L (16-63); AST 23 U/L (15-37); Albumin 3.3 g/dL (3.4-5.0); Alkaline Phosphatase 48 U/L (46-116); Anion Gap 7.6 mmol/L (3-11); BUN 19 mg/dL (7-18); Bilirubin, Total 0.4 mg/dL (0.2-1.0); CO2 26.4 mmol/L (21.0-32.0); Calcium 8.7 mg/dL (8.5-10.1); Chloride 103 mmol/L (98-107); Ferritin 168 ng/mL (26-388); Glucose 86 mg/dL (74-106); Potassium 4.4 mmol/L (3.5-5.1); Sodium 137 mmol/L (136-145); TSH (W/Ref FT4) 1.66 uIU/mL (0.36-3.74); Total Protein 7.9 g/dL (6.4-8.2)
[2021-12-06 17:16] LABS: Iron 48 ug/dL (65-175); Total Iron Binding Capacity 241 ug/dL (250-450); Transferrin Sat 20 % (20-55)
[2021-12-06 21:53] LABS: PSA, Screening 0.6 ng/mL (<=6.5)
== END 2021-12-06 09:45 | disposition home or self-care (01) ==
LOC: NCHCN 09:44
PROVIDERS: PCP Internal Medicine; Visit Provider Family Medicine
DX: R53.83 Other fatigue (principal); D64.9 Anemia, unspecified; R73.03 Prediabetes; Z12.5 Encounter for screening for malignant neoplasm of prostate
CPT/HCPCS: 80053; 84153; 85652; 82728; 83540; 83550; 84443; 85025

== ENCOUNTER 2021-12-15 01:55 | Outpatient (CLI) | payer MEDICARE, BC, SELFPAY ==
--- NOTE | 2021-12-15 | DI.CT_ITS ---
Exam(s) CT PELVIC WO EXAM: CT PELVIC WO CLINICAL HISTORY: PELVIC PAIN, R10.2. TECHNIQUE: Imaging Protocol: Axial computed tomography images with coronal and sagittal reformatted images were created and reviewed. CONTRAST MATERIAL: Oral: / no COMPARISON: CR XR hip RT AP lat only from 06/20/2018 CR XR lumbar spine complete from 10/22/2018 XR [facility] lumbar sp 2V from 03/12/2019 RF JOINT INJECTION FLUORO GUID from 05/30/2019 FINDINGS: Bladder: Symmetric distention, no gross wall thickening. Bowel: No obstruction or bowel wall thickening. Peritoneal cavity: No ascites, collection or mesenteric inflammatory response. Bones: No fracture. Right hip prosthesis creates artifact. Hip prosthesis difficult to evaluate wi th out recent priors. Posterior fusion hardware at L4-5. Enthesophyte at the iliac wings. Some bon y bridging across the SI joints. Overall the bones appear osteopenic. Soft tissues: Vascular calcifications. IMPRESSION: No evidence of acute fracture or suspicious bony lesion. Revised right hip prosthesis. Laminectomy and posterior fusion at L4-5. RADIATION DOSE DELIVERED: 626.13mGy.cmTotal DLP DATA REPOSITORY: All CT scans at this facility are submitted to the National Radiology Data Registry (NRDR) Dose Index Registry (DIR) with the [employer] (ACR). RADIATION OPTIMIZATION: All CT scans at this facility use at least one of these dose optimization te chniques: automated exposure control; mA and/or kV adjustment per patient size (includes targeted exa ms where dose is matched to clinical indication); or iterative reconstruction.
== END 2021-12-15 02:15 ==
PROVIDERS: PCP Internal Medicine; Visit Provider Family Medicine
DX: R10.2 Pelvic and perineal pain (principal); Z96.641 Presence of right artificial hip joint; M85.88 Other specified disorders of bone density and structure, other site; Z98.890 Other specified postprocedural states; Z98.1 Arthrodesis status
CPT/HCPCS: 72192

== ENCOUNTER 2022-10-25 10:02 | Outpatient (CLI) | payer MEDICARE, BC, SELFPAY ==
--- NOTE | 2022-10-25 09:15 | DI.RAD_ITS ---
Exam(s) XR SHOULDER LT COMPLETE 2+V EXAM: XR SHOULDER LT COMPLETE 2+V CLINICAL HISTORY: L shoulder pain. TECHNIQUE: 2D digital imaging was performed. COMPARISON: No exams were available for comparison FINDINGS: Two views: No evidence of acute fracture or dislocation. Mild degenerative changes are noted in the glenohumera l joint. There is a triangular osteophytic density immediately subjacent to the osseous glenoid anibal uring 8 x 4 millimeters. Similar to the opposite side and most probably related to the inferior labr um and/or inferior glenohumeral ligament. Other possibility is a small loose body in the inferior re cess. There are no calcifications in the soft tissues of the subacromial space. Mild degenerative c hanges are noted in the AC joint. Clavicle intact. IMPRESSION: Mild degenerative changes. Soft tissue calcification at the inferior osseous glenoid level as discussed above. This is somewhat similar to the finding in the opposite-right shoulder. DATA REPOSITORY: RADIATION DOSE DELIVERED:
--- NOTE | 2022-10-25 09:15 | DI.RAD_ITS ---
Exam(s) XR SHOULDER RT COMPLETE 2+V EXAM: XR SHOULDER RT COMPLETE 2+V CLINICAL HISTORY: Right Shoulder pain. TECHNIQUE: 2D digital imaging was performed. COMPARISON: CR,XR XR PORTABLE CHEST AP from 05/29/2021 CR XR SHOULDER LT COMPLETE 2+V from 10/25/2022 FINDINGS: Two views: There is a single fastener device in the humeral head, probably related to rotator cuff surgery. No evidence of fracture or dislocation. Moderate degenerative changes. Multiple subarticular degenerat jo ann cysts noted in the greater tuberosity. There is some calcification intimately related to the lower aspect of the osseous glenoid, either rel ated to the inferior labrum or inferior glenohumeral ligament. IMPRESSION: Previous rotator cuff surgery. No fractures. Soft tissue calcification immediately subjacent to the lower aspect of the osseous glenoid. This is either related to the labrum/labral ligamentous complex at this level. DATA REPOSITORY: RADIATION DOSE DELIVERED:
== END 2022-10-25 10:03 | disposition home or self-care (01) ==
LOC: DIORS 10:02
PROVIDERS: PCP Internal Medicine; Referring Provider Internal Medicine; Visit Provider Student in an Organized Health Care Education/Training Program
DX: M25.512 Pain in left shoulder (principal); M25.511 Pain in right shoulder; M75.102 Unspecified rotator cuff tear or rupture of left shoulder, not specified as traumatic
CPT/HCPCS: 20610; 99214; 73030; J1040

== ENCOUNTER 2022-11-26 21:29 | Emergency (ER) | payer MEDICARE, BC, SELFPAY ==
--- NOTE | 2022-11-26 21:30 | DI.CT_ITS ---
Exam(s) CT RENAL COLIC WO EXAM: CT RENAL COLIC WO CLINICAL HISTORY: Left flank pain. TECHNIQUE: Imaging Protocol: Axial computed tomography images with coronal and sagittal reformatted images were created and reviewed. COMPARISON: CT ABD PELVIS WO CONTRAST from 11/05/2016 FINDINGS: ABDOMEN: Lung Bases: Mild dependent atelectasis. Coronary artery calcifications are present. Small hiatal he rnia. Liver: Normal density. No measurable mass. Calcifications in the right lobe of the liver are again se en and unchanged. Gallbladder and biliary tract: No radiodense calculus or biliary ductal dilation. Pancreas: Normal density, no abnormal calcifications or inflammatory process. Spleen: Normal. Kidneys: Normal size, contour and axis.There is a 3 mm stone in the mid left ureter causing mild to m oderate hydronephrosis. No masses seen. Adrenal glands: No mass is seen. Lymph nodes: Within normal limits. Abdominal Aorta: Abdominal portion non-dilated. Atherosclerosis. PELVIS: Bladder:Symmetric distention, no gross wall thickening. Bowel: No obstruction or bowel wall thickening. No evidence of appendicitis. Peritoneal cavity: No ascites, collection or mesenteric inflammatory response. No free air. Reproductive organs: Unremarkable as visualized. Bones: Within normal limits. The patient has a right total hip replacement. Postsurgical changes are seen in the lower lumbar spine. Soft Tissues: Within normal limits. IMPRESSION: 3 mm stone in the mid left ureter causing [id number] hydronephrosis. RADIATION DOSE DELIVERED: 1,198.2mGy.cm Total DLP DATA REPOSITORY: All CT scans at this facility are submitted to the National Radiology Data Registry (NRDR) Dose Index Registry (DIR) with the [employer] (ACR). RADIATION OPTIMIZATION: All CT scans at this facility use at least one of these dose optimization te chniques: automated exposure control; mA and/or kV adjustment per patient size (includes targeted exa ms where dose is matched to clinical indication); or iterative reconstruction.
[2022-11-26 21:36] VITALS: BP 146/66; PULSE 80; RESP 16; TEMP 36.7; O2SAT 97
--- NOTE | 2022-11-26 21:43 | W.ED.GENAD ---
Discharge Plan Disposition Patient Disposition: Home Discharge Details Clinical Impression: Left ureteral stone Primary Care Provider: Fer Joy ED Provider: Tatum Woodall Home Meds and New Rx's Prescriptions: New tamsulosin 0.4 mg capsule 0.4 mg PO QHS 7 Days Qty: 7 0RF Rx Instructions: Take one tablet at bedtime No Action multivitamin tablet 1 tab PO DAILY calcium-magnesium 500-250 mg tablet 1 tab PO DAILY vitamin B complex [B Complex-Vitamin B12] Tablet 1 tab PO DAILY acetaminophen [Tylenol Extra Strength] 500 mg tablet 500 mg PO Q6H PRNQty: 90 0RF ibuprofen 600 mg tablet 600 mg PO TID Qty: 90 0RF ascorbic acid (vitamin C) [Vitamin C] 500 mg Tablet 500 mg PO DAILY cholecalciferol (vitamin D3) [Vitamin D3] 50 mcg (2,000 unit) Capsule 50 mcg PO DAILY ferrous sulfate [Iron (ferrous sulfate)] 325 mg (65 mg iron) Tablet 325 mg PO 1XD Discharge Instructions Instructions: Kidney Stones (ED), How to Strain Your Urine (ED) Additional Instructions: CT shows a 4 mm ureter kidney stone. This should pass on its own. You may still have some pain when it passes. Please take Tylenol or Ibuprofen with food every 4-6 hours as needed for pain and swelling. Take the Zofran as needed for nausea and vomiting. Please strain all your urine. Follow-up with urology and bring the stone with you if you catch it. Please follow-up sooner if you have any difficulty urinating fever vomiting not controlled by medication or concerns. Referrals: Fer Joy MD [Primary Care Provider] - 1 week Carlos Alvarez MD [ [facility] STAFF PHYSICIAN] - 3 days Medical Decision Making 77-year-old male presents to the ER with chief complaint of left flank pain which began approximately 4 hours prior to arrival. He did have an episode of emesis prior to arrival. Does have a history of kidney stones. Other past medical history includes hyperlipidemia, anemia, obesity, osteoarthritis. Denies any fever diarrhea or any other associated symptoms. CBC CMP urinalysis Toradol Zofran liter fluid and CT scan rule out kidney stone ordered. Differential diagnosis includes but not limited to diverticulosis, small bowel obstruction, gastroenteritis, UTI, pyelonephritis. Urinalysis shows 3-5 RBCs trace protein. White blood cell count shows leukocytosis mildly at 10.85 sodium 134 BUN 22 creatinine 1.[address] shows a 4 mm left mid ureteral stone. I did discuss the results with patient. He was given Toradol and Zofran and reports feeling much improved. Patient was given Flomax here in the department and a prescription was also given Zofran to go home with. Discussed tricked return instructions patient was given a strainer referral for urology. This text was generated using achvration system, please disregard any oddities of phrase or misspellings. Medical Records Medical records reviewed: Yes I reviewed the patient's medical records. Lab Data Lab results reviewed: Yes I reviewed the patient's lab results. Labs: Laboratory Tests Range/Units 11/26/22 11/26/22 11/26/22 22:00 22:00 22:25 WBC (4.4-10.8) 10^3/uL 10.85 H RBC (4.36-5.78) 10^6/uL 3.69 L Hgb (13.5-17.5) g/dL 12.1 L Hct (40.0-50.0) % 36.1 L MCV (80-95) fL 98 H MCH (27.0-33.0) pg 32.8 MCHC (32.0-36.0) % 33.5 RDW (11.8-14.1) % 14.1 Plt Count (130-400) 10^3/uL 166 MPV (8.0-11.0) fL 8.6 Immature Gran % 0.3 Neutrophils % 81.3 Lymphocytes % 10.0 Monocytes % 7.9 Eosinophils % 0.3 Basophils % 0.2 Nucleated RBC % (0.0-0.3) % 0.0 Absolute Neutrophils (1.2-6.7) 10^3/uL 8.82 H Absolute Lymphocytes (1.2-3.4) 10^3/uL 1.09 L Absolute Monocytes (0.1-0.8) 10^3/uL 0.86 H Absolute Eosinophils (0.0-0.7) 10^3/uL 0.03 Absolute Basophils (0.0-0.2) 10^3/uL 0.02 Sodium (136-145) mmol/L 134 L Potassium (3.5-5.1) mmol/L 4.2 Chloride (98-107) mmol/L 100 Carbon Dioxide (21.0-32.0) mmol/L 28.0 Anion Gap (3-11) mmol/L 6.0 BUN (7-18) mg/dL 22 H Creatinine (0.70-1.30) mg/dL 1.4 H Est GFR (CKD-EPI 2020) (mL/min/1.73m2) 52.09 Glucose (74-106) mg/dL 149 H Calcium (8.5-10.1) mg/dL 9.1 Total Bilirubin (0.2-1.0) mg/dL 0.4 AST (15-37) U/L 23 ALT (16-63) U/L 32 Alkaline Phosphatase (46-116) U/L 45 L Total Protein (6.4-8.2) g/dL 8.0 Albumin (3.4-5.0) g/dL 3.7 Urine Color (Yellow) Yellow Urine Clarity (Clear) Clear Urine pH (5-8) 6.0 Ur Specific [place] (1.005-1.025) >= 1.030 H Urine Protein (Negative) mg/dL Trace H Urine Ketones (Negative) mg/dL Negative Urine Blood (Negative) Trace-lysed H Urine Nitrite (Negative) Negative Urine Bilirubin (Negative) Negative Urine Urobilinogen (Up to 0.2) mg/dL 0.2 Ur Leukocyte Esterase (Negative) Negative Urine RBC (0-2) HPF 3-5 H Urine WBC (0-5) HPF 0-2 Ur Epithelial Cells (Negative) HPF Few Urine Crystals (Negative) HPF Negative Urine Bacteria (Negative) HPF Negative Urine Casts (Negative) LPF Negative Urine Mucus (Negative) Negative Urine Other (Negative) Negative Ur Culture Indicated? No Urine Glucose (Negative) mg/dL Negative HPI General Mode of arrival: ambulatory. Date/Time Provider Initiated Documentation: 11/26/22 21:31. Limitations to Documentation: no limitations. Information obtained by: patient, RN notes reviewed and old records reviewed. HPI Narrative: 77-year-old male presents to the ER with chief complaint of left flank pain which began approximately 4 hours prior to arrival. He did have an episode of emesis prior to arrival. Does have a history of kidney stones. Other past medical history includes hyperlipidemia, anemia, obesity, osteoarthritis. Denies any fever diarrhea or any other associated symptoms. Related Data Home Medications Medication Instructions Recorded Confirmed calcium-magnesium 500 mg-250 mg 1 tab PO DAILY 01/16/19 11/26/22 tablet multivitamin 1 tab PO DAILY 01/16/19 11/26/22 vitamin B complex (B 1 tab PO DAILY 09/16/20 11/26/22 Complex-Vitamin B12 tablet) acetaminophen 500 mg tablet 500 mg PO Q6H PRN #90 tabs 12/02/20 11/26/22 (Tylenol Extra Strength) ibuprofen 600 mg tablet 600 mg PO TID #90 tabs 12/02/20 11/26/22 ascorbic acid (vitamin C) 500 mg 500 mg PO DAILY 05/29/21 11/26/22 tablet (Vitamin C) cholecalciferol (vitamin D3) 50 50 mcg PO DAILY 05/29/21 11/26/22 mcg (2,000 unit) capsule (Vitamin D3) ferrous sulfate 325 mg (65 mg 325 mg PO 1XD 11/26/22 11/26/22 iron) tablet (Iron (ferrous sulfate)) tamsulosin 0.4 mg capsule 0.4 mg PO QHS 7 days #7 caps 11/26/22 Previous Rx's Medication Instructions Recorded acetaminophen 500 mg tablet 500 mg PO Q6H PRN #90 tabs 12/02/20 (Tylenol Extra Strength) ibuprofen 600 mg tablet 600 mg PO TID #90 tabs 12/02/20 tamsulosin 0.4 mg capsule 0.4 mg PO QHS 7 days #7 caps 11/26/22 Allergies Allergy/AdvReac Type Severity Reaction Status Date / Time Sulfa (Sulfonamide Allergy Intermediate Skin Rash, Unverified 11/26/22 21:45 Antibiotics) hives, all red and blotchy General Stated Complaint: FlankPain ITZ: 3 Review of Systems All systems reviewed & are unremarkable except as noted in HPI and below Constitutional Constitutional: Denies chills and Denies fever(s) Gastrointestinal Gastrointestinal: Reports as per HPI, Reports abdominal pain, Denies diarrhea, Reports nausea and Reports vomiting Genitourinary Genitourinary: Reports as per HPI and Reports flank pain PFSH All Active Problems (Updated 11/26/22 @ 23:08 by Tatum Woodall NP) Left ureteral stone (Acute) Arthritis of both glenohumeral joints (Acute) Left rotator cuff tear (Acute) DEPO MEDROL 10/25/22 Intermittent palpitations (Acute) Chest pain (Acute) Infection of bursa (Acute) Infrapatellar bursitis (Acute) Left carpal tunnel syndrome (Acute) S/P ECTR: 01/27/2021 Right carpal tunnel syndrome (Acute) S/P ECTR: 12/02/2020 Anemia (Acute 03/09/18) Chronic otitis media (Acute 09/23/13) Chronic serous otitis media (Acute 09/23/13) Conductive hearing loss (Acute 09/23/13) Erythema migrans (Lyme disease) (Acute 02/05/18) Mixed hearing loss (Acute 05/27/14) Other disorders of Eustachian tube (Acute 05/26/14) Partial tear of left rotator cuff (Acute 02/01/16) Primary osteoarthritis of right hip (Acute 09/07/16) Sensorineural hearing loss (Acute 05/27/14) Trochanteric bursitis, right hip (Acute 12/27/17) Tympanic membrane perforation (Acute 05/26/14) Sprain of abdominal wall (Acute) Likely right external oblique Lumbar radicular syndrome (Acute) Trigger little finger of right hand (Acute) S/P release: 12/02/2020 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 ear (Acute) Medical History Actinic keratoses Anemia due to blood loss Asymptomatic varicose veins Back pain Chronic cough Contact dermatitis Diarrhea Fecal incontinence Fecal smearing Hand numbness History of snoring Hyperlipidemia Infection and inflammatory reaction due to internal right hip prosthesis, sequela Lumbar back pain Lumbar radiculopathy Macrocytic anemia 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 denies this Preventative health care Radicular pain Rash Rotator cuff syndrome Scrotal varices Skin lesion Spinal stenosis Varicose vein of leg Surgical History Arthroscopy, Shoulder bilateral back surgery 10/2017 Extraction of cataract bilateral History of total replacement of right hip Left carpal tunnel syndrome S/P ECTR: 01/27/2021 Right carpal tunnel syndrome S/P ECTR: 12/02/2020 Total replacement of hip 2017 anterior R Trigger little finger of right hand S/P release: 12/02/2020 Vasectomy Social History Smoking/Tobacco Use Status: Former Tobacco Use Quit Date: 08/21/75 Smoking risk assessment performed?: Yes Alcohol Intake: current Alcohol Intake frequency: a few times a month Alcohol type: hard liquor Drug use: Never Substance use type: does not use Household members: spouse Housing: house Number of Children: 2 number of grandchildren: 2 current occupation: Retired Pets and animals: Yes What is your relationship status?: Panel score (0-1 are the most socially isolated patients): 1 What type of physical activity do you participate in: walking Frequency: daily Seatbelt use: always Do you feel safe at home: Yes Do you feel safe in your relationship?: Yes Exam Narrative Exam Narrative: Constitutional: Alert and oriented x3. Appears stated age. Normal body habitus. Head: Normocephalic, no trauma. Eyes: Pupils PERRL, Red reflex noted, EOM's intact. Eyelids symmetrical without lesions, discharge, or swelling. ENT: Bilateral TM's WNL, External ear normal to inspection, no mastoid TTP, swelling, or erythema, Nasal turbinates WNL, no nasal discharge. Normal dentition, Posterior pharynx WNL, no exudate. Chest: RRR, Normal S1, S2, distal pulses intact. Resp: Lungs clear to auscultation bilaterally, no wheezes, rales, or rhonchi. Abdomen: Soft, non-distended, Normoactive bowel sounds all 4 quads. Musculoskeletal: Normal gait, 5/5 strength to all four extremities. Skin: No suspicious rashes or lesions. Capillary refill less than 2 sec. Neurologic: Cranial nerves II-XII intact. Alert and oriented x 3. Motor: No deficits noted. Sensory: Intact bilaterally all 4 extremities. Reflexes: DTR's intact bilaterally.. Hematologic/Lymphatic: No ecchymosis, no lymphadenopathy. Course Vital Signs Vital signs: Vital Signs Temperature 36.7 C 11/26/22 21:36 Pulse 80 11/26/22 21:36 Respiratory Rate 16 11/26/22 21:36 Blood Pressure 146/66 H 11/26/22 21:36 Pulse Oximetry 97 11/26/22 21:36 Temperature 36.7 C 11/26/22 21:36 Temperature Source Oral 11/26/22 21:36 Pulse 80 11/26/22 21:36 Respiratory Rate 16 11/26/22 21:36 Respiratory Effort Normal 11/26/22 21:40 Blood Pressure 146/66 H 11/26/22 21:36 Blood Pressure Position Supine 11/26/22 21:36 Pulse Oximetry 97 11/26/22 21:36 Oxygen Delivery Method Room Air 11/26/22 21:36 Oxygen Flow Rate 0 11/26/22 21:36 Pain Level 10 11/26/22 21:36
[2022-11-26] MEDS: Ondansetron 4 MG/2 ML VIAL IVP (22:05)
[2022-11-26] MEDS: Ketorolac 30 MG/ML VIAL IVP (22:05)
[2022-11-26 22:10] LABS: Abs Immature Grans 0.03 10^3/uL (0.0-0.06); Absolute Basophil Count 0.02 10^3/uL (0.0-0.2); Absolute Eosinophil Count 0.03 10^3/uL (0.0-0.7); Absolute Lymphocyte Count 1.09 10^3/uL (1.2-3.4); Absolute Monocyte Count 0.86 10^3/uL (0.1-0.8); Absolute Neutrophil Count 8.82 10^3/uL (1.2-6.7); Basophils % 0.2; Eosinophils % 0.3; HCT 36.1 % (40.0-50.0); HGB 12.1 g/dL (13.5-17.5); Immature Grans % 0.3; MCH 32.8 pg (27.0-33.0); MCHC 33.5 % (32.0-36.0); MCV 98 fL (80-95); MPV 8.6 fL (8.0-11.0); Monocytes % 7.9; Neutrophils % 81.3; Platelet Count 166 10^3/uL (130-400); RBC 3.69 10^6/uL (4.36-5.78); RDW 14.1 % (11.8-14.1); RDW-SD 50.8 fL; WBC 10.85 10^3/uL (4.4-10.8)
[2022-11-26 22:22] LABS: ALT 32 U/L (16-63); AST 23 U/L (15-37); Albumin 3.7 g/dL (3.4-5.0); Alkaline Phosphatase 45 U/L (46-116); BUN 22 mg/dL (7-18); Bilirubin, Total 0.4 mg/dL (0.2-1.0); CREATININE 1.4 mg/dL (0.70-1.30); Calcium 9.1 mg/dL (8.5-10.1); Chloride 100 mmol/L (98-107); Estimated GFR 52.09 (mL/min/1.73m2); Glucose 149 mg/dL (74-106); Potassium 4.2 mmol/L (3.5-5.1); Sodium 134 mmol/L (136-145)
[2022-11-26 22:32] LABS: Bilirubin Negative (Negative); Blood Trace-lysed (Negative); Clarity Clear (Clear); Glucose Negative (Negative); Ketones Negative (Negative); Leukocyte Esterase Negative (Negative); Nitrite Negative (Negative); Specific Gravity >= 1.030 (1.005-1.025); Urobilinogen 0.2 mg/dL (Up to 0.2)
[2022-11-26 22:33] LABS: Bacteria Negative HPF (Negative); C & S Indicated? No; Casts Negative LPF (Negative); Crystals Negative HPF (Negative); Epithelial Cells Few HPF (Negative); Mucus Negative (Negative); Other Cells Negative (Negative); WBC 0-2 HPF (0-5)
--- NOTE | 2022-11-26 23:00 | DI.VRAD_ITS ---
PROCEDURE INFORMATION: Exam: CT Abdomen And Pelvis Without Contrast Exam date and time: 11/26/2022 10:14 PM Age: 77 years old Clinical indication: Abdominal pain; Patient HX: Left flank pain TECHNIQUE: Imaging protocol: Computed tomography of the abdomen and pelvis without contrast. COMPARISON: CT PELVIC WO 12/15/2021 2:44 PM FINDINGS: Lungs: Atelectasis versus scarring at the lung bases. Liver: Mildly heterogeneous liver. There are calcifications in the liver which can be seen secondary to old granulomatous disease. Gallbladder and bile ducts: Normal. No calcified stones. No ductal dilation. Pancreas: Normal. No ductal dilation. Spleen: Normal. No splenomegaly. Adrenal glands: Normal. No mass. Kidneys and ureters: There is left-sided hydronephrosis and hydroureter which ends in a 4 mm calculus in the mid left ureter. There is perinephric and periureteral stranding which may be reactive but should be correlated with any concern for infection. Stomach and bowel: Small hiatal hernia. No obstruction. Appendix: Not clearly seen. Intraperitoneal space: No free air. Vasculature: Vascular calcifications. Lymph nodes: Unremarkable. No enlarged lymph nodes. Urinary bladder: Unremarkable as visualized. Reproductive: Prostate calcifications which can be seen with prior episodes of prostatitis. Bones/joints: Postsurgical changes to the right hip and spine. Skeletal degenerative changes. Multilevel disc space narrowing and vacuum phenomenon in the spine. No acute fracture. Soft tissues: Unremarkable. IMPRESSION: 1. There is left-sided hydronephrosis and hydroureter which ends in a 4 mm calculus in the mid left ureter. There is perinephric and periureteral stranding which may be reactive but should be correlated with any concern for infection. Other findings/details as above. Dictated and Authenticated by: Danna Whiting MD. Ordering:STEVIE Winn MD
[2022-11-26] MEDS: Ondansetron O.D.T. 4 MG TABEF, 3 TABS/BTL PO (23:11)
[2022-11-26] MEDS: Tamsulosin 0.4 MG CAPCR PO (23:12)
[2022-11-26 23:22] VITALS: BP 132/64; PULSE 81; RESP 16; O2SAT 98
== END 2022-11-26 23:23 | disposition home or self-care (01) ==
PROVIDERS: Emergency Medicine; Emergency Provider Registered Nurse Emergency; PCP Family Medicine
DX: N20.1 Calculus of ureter (principal); D72.829 Elevated white blood cell count, unspecified
CPT/HCPCS: 80053; 96374; 96375; 99284; 74176; 81003; 81015; 85025; J1885; J2405

== ENCOUNTER 2022-12-07 22:18 | Outpatient (REF) | payer MEDICARE, BC, SELFPAY ==
[2022-12-16 12:05] LABS: Source: Kidney
== END 2022-12-07 22:19 | disposition home or self-care (01) ==
LOC: NCHCN 22:18
PROVIDERS: PCP Family Medicine; Visit Provider Family Medicine
DX: N20.0 Calculus of kidney (principal); Z87.442 Personal history of urinary calculi
CPT/HCPCS: 82365

== ENCOUNTER → 2023-01-03 12:54 | Outpatient (BNVA) | payer MEDICARE, BC, SELFPAY | PROVIDERS: PCP Family Medicine; Referring Provider Family Medicine; Visit Provider Student in an Organized Health Care Education/Training Program | DX: M19.011 Primary osteoarthritis, right shoulder (principal); M19.012 Primary osteoarthritis, left shoulder; M75.102 Unspecified rotator cuff tear or rupture of left shoulder, not specified as traumatic | CPT/HCPCS: 99213 ==

== ENCOUNTER → 2023-02-08 13:09 | Outpatient (BNVA) | payer MEDICARE, BC, SELFPAY | PROVIDERS: PCP Family Medicine; Referring Provider Family Medicine; Visit Provider Student in an Organized Health Care Education/Training Program | DX: M19.011 Primary osteoarthritis, right shoulder (principal); M19.012 Primary osteoarthritis, left shoulder; M75.102 Unspecified rotator cuff tear or rupture of left shoulder, not specified as traumatic | CPT/HCPCS: 99213 ==

== ENCOUNTER → 2023-03-21 07:52 | Outpatient (BNVA) | payer MEDICARE, BC, SELFPAY | PROVIDERS: PCP Family Medicine; Referring Provider Family Medicine; Visit Provider Student in an Organized Health Care Education/Training Program | DX: M19.012 Primary osteoarthritis, left shoulder (principal) | CPT/HCPCS: 20610; 99213; J1040 ==

== ENCOUNTER → 2023-07-05 09:58 | Outpatient (BNVA) | payer MEDICARE, BC, SELFPAY | PROVIDERS: PCP Family Medicine; Referring Provider Family Medicine; Visit Provider Student in an Organized Health Care Education/Training Program | DX: M19.011 Primary osteoarthritis, right shoulder (principal); M19.012 Primary osteoarthritis, left shoulder; M75.102 Unspecified rotator cuff tear or rupture of left shoulder, not specified as traumatic | CPT/HCPCS: 20610; J1030 ==

== ENCOUNTER → 2023-09-29 10:14 | Outpatient (CLI) | payer MEDICARE, BC, SELFPAY ==
--- NOTE | 2023-09-29 | DI.US_ITS ---
Exam(s) US LOWER EXTREMITY VENOUS LT EXAM: US LOWER EXTREMITY VENOUS LT CLINICAL HISTORY: LT LOWER LEG SWELLING, R60.0 TECHNIQUE: Grayscale, color, and doppler imaging of the deep venous system of the lower extremity w as performed. COMPARISON: US Cardiac from 11/07/2016 FINDINGS: This is a positive study for DVT. There is intraluminal thrombus within the left femoral vein from proximal to distal thigh and extendi ng into the popliteal vein. Also seen to extend below the level of the knee into the paired peroneal veins in the calf. The posterior tibial veins appear patent Ipsilateral greater saphenous vein is patent. There is no clot seen at the level of the common femor al vein-groin level. IMPRESSION: This study is positive for the presence of DVT both above and below the knee as described above. The most superior aspect of the intraluminal thrombus is in the upper thigh-proximal femoral vein. DATA REPOSITORY:
== END ==
PROVIDERS: PCP Family Medicine; Visit Provider Family Medicine
DX: R60.0 Localized edema (principal)
CPT/HCPCS: 93971

== ENCOUNTER 2024-01-29 17:44 | Outpatient (REF) | payer MEDICARE, BC, SELFPAY ==
[2024-01-29 21:24] LABS: HCT 36.2 % (40.0-50.0); MCH 32.8 pg (27.0-33.0); MCHC 33.1 % (32.0-36.0); MCV 99 fL (80-95); MPV 9.7 fL (8.0-11.0); Platelet Count 207 10^3/uL (130-400); RBC 3.66 10^6/uL (4.36-5.78); RDW 14.1 % (11.8-14.1); RDW-SD 51.3 fL
[2024-01-29 21:48] LABS: Hemoglobin A1C 6.5 % (<5.7)
[2024-01-29 21:49] LABS: ALT 23 U/L (16-63); AST 17 U/L (15-37); Albumin 3.6 g/dL (3.4-5.0); Alkaline Phosphatase 46 U/L (46-116); Anion Gap 8.3 mmol/L (3-11); BUN 17 mg/dL (7-18); Bilirubin, Total 0.3 mg/dL (0.2-1.0); CO2 27.7 mmol/L (21.0-32.0); CREATININE 1.1 mg/dL (0.70-1.30); Calcium 9.2 mg/dL (8.5-10.1); Chloride 102 mmol/L (98-107); Estimated GFR 69.14 (mL/min/1.73m2); Ferritin 137 ng/mL (26-388); Glucose 103 mg/dL (74-106); Potassium 4.5 mmol/L (3.5-5.1); Sodium 138 mmol/L (136-145)
[2024-01-30 20:25] LABS: PSA, Screening 0.5 ng/mL (<=6.5)
== END 2024-01-29 17:45 | disposition home or self-care (01) ==
LOC: NCHCN 17:44
PROVIDERS: PCP Family Medicine; Visit Provider Family Medicine
DX: R73.03 Prediabetes (principal); D64.9 Anemia, unspecified; N40.0 Benign prostatic hyperplasia without lower urinary tract symptoms; Z12.5 Encounter for screening for malignant neoplasm of prostate
CPT/HCPCS: 80053; 84153; 85027; 82728; 83036

== ENCOUNTER → 2024-01-30 08:34 | Outpatient (BNVA) | payer MEDICARE, BC, SELFPAY | PROVIDERS: PCP Family Medicine; Referring Provider Family Medicine; Visit Provider Student in an Organized Health Care Education/Training Program | DX: M19.011 Primary osteoarthritis, right shoulder (principal); M19.012 Primary osteoarthritis, left shoulder; M75.102 Unspecified rotator cuff tear or rupture of left shoulder, not specified as traumatic | CPT/HCPCS: 99213 ==

== ENCOUNTER → 2024-03-06 09:06 | Outpatient (BNVA) | payer MEDICARE, BC, SELFPAY | PROVIDERS: PCP Family Medicine; Referring Provider Family Medicine; Visit Provider Student in an Organized Health Care Education/Training Program | DX: M75.102 Unspecified rotator cuff tear or rupture of left shoulder, not specified as traumatic (principal); M19.011 Primary osteoarthritis, right shoulder; M19.012 Primary osteoarthritis, left shoulder | CPT/HCPCS: 99214 ==

== ENCOUNTER → 2024-03-21 01:37 | Outpatient (CLI) | payer MEDICARE, BC, SELFPAY ==
--- NOTE | 2024-03-21 07:15 | DI.CT_ITS ---
Exam(s) CT UPPER EXTREMITY LT WO EXAM: CT UPPER EXTREMITY LT WO CLINICAL HISTORY: SURGICAL PLANNING, lt rot cuff tear, arthritis lt glenohumeral joint,. TECHNIQUE: Imaging Protocol: Axial computed tomography images with coronal and sagittal reformatted images were created and reviewed. COMPARISON: CR XR SHOULDER LT COMPLETE 2+V from 10/25/2022 CR XR SHOULDER RT COMPLETE 2+V from 10/25/2022 FINDINGS: Bones: There is no evidence of fracture or dislocation. Bony alignment is satisfactory. No cellulitic or osteomyelitic changes are identified. No lytic or sclerotic lesions are identified. Joints: Mild spurring at the AC joint. Moderate narrowing of the glenohumeral joint. Periarticular spurring. Subchondral cysts in the humeral head. Spurring at greater tuberosity. Soft Tissues: Normal. IMPRESSION: moderate degenerative changes glenohumeral joint. RADIATION DOSE DELIVERED: Total DLP Total DLP DATA REPOSITORY: All CT scans at this facility are submitted to the National Radiology Data Registry (NRDR) Dose Index Registry (DIR) with the [employer] (ACR). RADIATION OPTIMIZATION: All CT scans at this facility use at least one of these dose optimization te chniques: automated exposure control; mA and/or kV adjustment per patient size (includes targeted exa ms where dose is matched to clinical indication); or iterative reconstruction.
== END ==
PROVIDERS: PCP Family Medicine; Visit Provider Student in an Organized Health Care Education/Training Program
DX: M75.102 Unspecified rotator cuff tear or rupture of left shoulder, not specified as traumatic (principal); M19.012 Primary osteoarthritis, left shoulder
CPT/HCPCS: 36415; 85652; 73200; 86140

== ENCOUNTER 2024-03-21 03:53 | Outpatient (CLI) | payer MEDICARE, BC, SELFPAY ==
[2024-03-21 10:09] LABS: ESR 52 mm/hr (0-20)
[2024-03-21 11:54] LABS: C-Reactive Protein 1.14 mg/dL (<or=0.5)
== END 2024-03-21 03:54 | disposition home or self-care (01) ==
LOC: LBO 03:54
PROVIDERS: PCP Family Medicine; Visit Provider Student in an Organized Health Care Education/Training Program
DX: M19.011 Primary osteoarthritis, right shoulder (principal); M19.012 Primary osteoarthritis, left shoulder
CPT/HCPCS: 36415; 85652; 86140

== ENCOUNTER → 2024-04-03 11:08 | Outpatient (BNVA) | payer MEDICARE, BC, SELFPAY | PROVIDERS: PCP Family Medicine; Referring Provider Family Medicine; Visit Provider Student in an Organized Health Care Education/Training Program | DX: M19.011 Primary osteoarthritis, right shoulder (principal); M19.012 Primary osteoarthritis, left shoulder; M75.102 Unspecified rotator cuff tear or rupture of left shoulder, not specified as traumatic | CPT/HCPCS: 99214 ==

== ENCOUNTER 2024-04-16 11:47 | Outpatient (REF) | payer MEDICARE, BC, SELFPAY ==
[2024-04-16 15:05] LABS: ESR 75 mm/hr (0-20)
[2024-04-16 15:13] LABS: C-Reactive Protein 1.22 mg/dL (<or=0.5)
== END 2024-04-16 11:48 | disposition home or self-care (01) ==
LOC: NCHCN 11:47
PROVIDERS: PCP Family Medicine; Visit Provider Family Medicine
DX: M25.59 Pain in other specified joint (principal)
CPT/HCPCS: 85652; 86140

== ENCOUNTER 2024-04-30 14:01 | Emergency (ER) | payer MEDICARE, BC, SELFPAY ==
[2024-04-30 14:05] VITALS: BP 134/68; PULSE 87; RESP 12; TEMP 36.6; O2SAT 96
--- NOTE | 2024-04-30 14:20 | ED.GENADUL_ITS ---
Discharge Plan Disposition Patient Disposition: Home Condition: Stable Discharge Details Clinical Impression: Acute pain of right hip, Anemia, Partial tear of left rotator cuff, Primary osteoarthritis of right hip, Acute pain of left shoulder Primary Care Provider: Fer Joy ED Provider: Doreen Howell Home Meds and New Rx's Prescriptions: No Action multivitamin tablet 1 tab PO DAILY calcium-magnesium 500-250 mg tablet 1 tab PO DAILY vitamin B complex [B Complex-Vitamin B12] Tablet 1 tab PO DAILY acetaminophen [Tylenol Extra Strength] 500 mg tablet 500 mg PO Q6H PRNQty: 90 0RF ibuprofen 600 mg tablet 600 mg PO TID Qty: 90 0RF ascorbic acid (vitamin C) [Vitamin C] 500 mg Tablet 500 mg PO DAILY cholecalciferol (vitamin D3) [Vitamin D3] 50 mcg (2,000 unit) Capsule 50 mcg PO DAILY Discharge Instructions Instructions: Hip Pain ED Additional Instructions: You were seen in the emergency department today for evaluation after an injury. In our department you had x-ray imaging of the painful spots, which did not show any fractures, dislocations, or disruption of hardware. You likely tweaked these areas and should continue to use Tylenol and ibuprofen as needed for management of pain. You need to follow-up with your orthopedic doctor and your primary care provider at your scheduled appointments. Thank you for allowing us to be part of your care. HPI General Mode of arrival: ambulatory . Date/Time Provider Initiated Documentation: 04/30/24 14:08 . Limitations to Documentation: no limitations . Information obtained by: patient, family and old records reviewed . 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 The patient reports that he was working on his tractor lifting up a trailer, and the trailer tried to slip and the tractor tipped up onto its side. The tractor did not roll and he did not fall, but he did wrenched his right hip attempting to get off of the tractor, as well as his left shoulder. The patient reports that he has had pain in these areas for about a year, and is following with orthopedics for further workup and management. He reports that he noted increased pain in these areas after the event, which has partially responded to Tylenol and ibuprofen. He states he was able to walk normally after this event without his cane. He did not strike his head, lose consciousness, or injure any other part of his body. He is not experiencing new weakness, numbness, or tingling in his extremities. Exam: Gen: Awake and alert, in no apparent distress HEENT: Non-icteric sclera Neck: Supple Lungs: No apparent respiratory distress, normal respiratory effort. CV: Appears well perfused, strong distal pulses Abdomen: Non-distended MSK: Moves 4 extremities without apparent limitation in ROM. Tenderness to palpation over the biceps tendon with external rotation of the shoulder. Otherwise the patient has no reproduction of pain with active or passive range of motion of the left shoulder. He has no evidence of trauma or injury distal to this affected left shoulder. The patient's right hip is tender over the lateral aspect of the buttock, full range of motion without reproduction of pain with flexion, extension, internal and external rotation. The patient has no groin pain, and the distal lower extremities without traumatic findings. Skin: Visualized skin without rashes, cyanosis. Neuro: Normal Gait with a cane, no obvious focal deficits or facial asymmetry. Preserved strength and sensation, symmetrical x 4 extremities. Speaks in full, clear sentences. Psych: Appropriate for situation. MDM: In brief, this is a 78-year-old male patient presenting for evaluation of acute on chronic worsening of his right hip and left shoulder pain after a tractor incident. My differential includes but is not limited to fracture, dislocation, strain, sprain, contusion. Reassuringly, the patient has no neurovascular deficits to suggest neurovascular injury, is ambulatory and without limitations in range of motion. He is comfortable, calm, and did not experiencing any medical abnormalities prior to this incident. We will obtain x-ray imaging of the patient's affected left shoulder and right hip. At this time the patient is not desiring of any medications for management of pain. ED Course: I independently interpreted the patient's x-ray imaging and reviewed the radiologist report, which shows no acute fracture, dislocation, or other osseous abnormalities to account for his symptoms. I am most concerned for sprain/strain, and on repeat examination the patient is reassuringly with improvement in his pain, ambulatory and neurovascularly intact. At this time, the patient has had a full medical evaluation and is safe for discharge to home. They are hemodynamically stable, ambulatory, and tolerating PO. They are understanding of the follow-up plan and return precautions. They left our facility without incident. Doreen Howell MD Related Data Home Medications ?Medication ?Instructions ?Recorded ?Confirmed calcium-magnesium 500 mg-250 mg 1 tab PO DAILY 01/16/19 04/30/24 tablet multivitamin 1 tab PO DAILY 01/16/19 04/30/24 vitamin B complex (B 1 tab PO DAILY 09/16/20 04/30/24 Complex-Vitamin B12 tablet) acetaminophen 500 mg tablet 500 mg PO Q6H PRN #90 tabs 12/02/20 04/30/24 (Tylenol Extra Strength) ibuprofen 600 mg tablet 600 mg PO TID #90 tabs 12/02/20 04/30/24 ascorbic acid (vitamin C) 500 mg 500 mg PO DAILY 05/29/21 04/30/24 tablet (Vitamin C) cholecalciferol (vitamin D3) 50 50 mcg PO DAILY 05/29/21 04/30/24 mcg (2,000 unit) capsule (Vitamin D3) Previous Rx's ?Medication ?Instructions ?Recorded acetaminophen 500 mg tablet 500 mg PO Q6H PRN #90 tabs 12/02/20 (Tylenol Extra Strength) ibuprofen 600 mg tablet 600 mg PO TID #90 tabs 12/02/20 Allergies Allergy/AdvReac Type Severity Reaction Status Date / Time Sulfa (Sulfonamide Allergy Intermediate Skin Rash, Unverified 04/30/24 14:08 Antibiotics) hives, all red and blotchy General Stated Complaint: Orthopedic ITZ: 4 Course Vital Signs Vital signs: Vital Signs Temperature 36.6 C 04/30/24 14:05 Pulse 87 04/30/24 14:05 Respiratory Rate 12 04/30/24 14:05 Blood Pressure 134/68 04/30/24 14:05 Pulse Oximetry 96 04/30/24 14:05 Temperature 36.6 C 04/30/24 14:05 Temperature Source Oral 04/30/24 14:05 Pulse 87 04/30/24 14:05 Respiratory Rate 12 04/30/24 14:05 Respiratory Effort Normal, Non-Labored 04/30/24 14:09 Blood Pressure 134/68 04/30/24 14:05 Blood Pressure Position Sitting 04/30/24 14:05 Pulse Oximetry 96 04/30/24 14:05 Oxygen Delivery Method Room Air 04/30/24 14:05 Oxygen Flow Rate 0 04/30/24 14:05 Pain Level 8 04/30/24 14:05 Medical Decision Making Quality:SDOH Health Related Social Needs: No Data to Display PFSH All Active Problems (Updated 04/30/24 @ 15:34 by Doreen Howell MD) Acute pain of left shoulder (Acute) Acute pain of right hip (Acute) Arthritis of both glenohumeral joints (Acute) Left rotator cuff tear (Acute) DEPO MEDROL 10/25/22; 03/21/23 Intermittent palpitations (Acute) Chest pain (Acute) Infection of bursa (Acute) Infrapatellar bursitis (Acute) Left carpal tunnel syndrome (Acute) S/P ECTR: 01/27/2021 Right carpal tunnel syndrome (Acute) S/P ECTR: 12/02/2020 Anemia (Acute 03/09/18) Chronic otitis media (Acute 09/23/13) Chronic serous otitis media (Acute 09/23/13) Conductive hearing loss (Acute 09/23/13) Erythema migrans (Lyme disease) (Acute 02/05/18) Mixed hearing loss (Acute 05/27/14) Other disorders of Eustachian tube (Acute 05/26/14) Partial tear of left rotator cuff (Acute 02/01/16) Primary osteoarthritis of right hip (Acute 09/07/16) Sensorineural hearing loss (Acute 05/27/14) Trochanteric bursitis, right hip (Acute 12/27/17) Tympanic membrane perforation (Acute 05/26/14) Sprain of abdominal wall (Acute) Likely right external oblique Lumbar radicular syndrome (Acute) Trigger little finger of right hand (Acute) S/P release: 12/02/2020 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 ear (Acute) Medical History Actinic keratoses Anemia due to blood loss Asymptomatic varicose veins Back pain Chronic cough Contact dermatitis Diarrhea Fecal incontinence Fecal smearing Hand numbness History of snoring Hyperlipidemia Infection and inflammatory reaction due to internal right hip prosthesis, sequela Lumbar back pain Lumbar radiculopathy Macrocytic anemia 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 denies this Preventative health care Radicular pain Rash Rotator cuff syndrome Scrotal varices Skin lesion Spinal stenosis Varicose vein of leg Surgical History Arthroscopy, Shoulder bilateral back surgery 10/2017 Extraction of cataract bilateral History of total replacement of right hip Left carpal tunnel syndrome S/P ECTR: 01/27/2021 Right carpal tunnel syndrome S/P ECTR: 12/02/2020 Total replacement of hip 2017 anterior R Trigger little finger of right hand S/P release: 12/02/2020 Vasectomy Social History Smoking/Tobacco Use Status: Former Tobacco Use Quit Date: 08/21/75 Smoking risk assessment performed?: Yes Alcohol Intake: current Alcohol Intake frequency: a few times a month Alcohol type: hard liquor Drug use: Never Substance use type: does not use Household members: spouse Housing: house Number of Children: 2 number of grandchildren: 2 current occupation: Retired Pets and animals: Yes Current gender identity: male What is your relationship status?: Panel score (0-1 are the most socially isolated patients): 1 What type of physical activity do you participate in: walking Frequency: daily Seatbelt use: always Do you feel safe at home: Yes Do you feel safe in your relationship?: Yes
--- NOTE | 2024-04-30 15:08 | DI.RAD_ITS ---
Exam(s) XR SHOULDER LT COMPLETE 2+V EXAM: XR SHOULDER LT COMPLETE 2+V CLINICAL HISTORY: Hx rotator cuff tear, increased pain after injury. TECHNIQUE: 2D digital imaging was performed. Three views. COMPARISON: CT CT UPPER EXTREMITY LT WO from 03/21/2024 FINDINGS: BONES: No acute fracture is present. No bony destructive lesion is seen. JOINTS: No dislocation present. Degenerative changes at AC joint and glenohumeral joint. SOFT TISSUE: Normal. IMPRESSION: Degenerative changes. No acute abnormality. DATA REPOSITORY: RADIATION DOSE DELIVERED:
--- NOTE | 2024-04-30 15:08 | DI.RAD_ITS ---
Exam(s) XR HIP RT COMPLETE AP PELVIS EXAM: XR HIP RT COMPLETE AP PELVIS CLINICAL HISTORY: previous replacement, increased pain after injury. TECHNIQUE: 2D digital imaging was performed. three views COMPARISON: CR XR hip RT AP lat only from 06/20/2018 CR XR lumbar spine complete from 10/22/2018 FINDINGS: BONES: No acute fracture is present. No bony destructive lesion is seen. Right hip prosthesis. Roly g stem component. The femoral component prosthesis is not fully included on exam. Hardware noted at the lower lumbar spine. JOINTS: No dislocation present. Bony bridging across the SI joints. The enthesophytes at the iliac w ings. SOFT TISSUE: Vascular calcifications. Vasectomy clips. IMPRESSION: No acute abnormality. DATA REPOSITORY: RADIATION DOSE DELIVERED:
[2024-04-30 15:47] VITALS: BP 104/52; PULSE 71; RESP 18; O2SAT 96
== END 2024-04-30 15:48 | disposition home or self-care (01) ==
PROVIDERS: Emergency Provider Emergency Medicine; PCP Family Medicine
DX: M25.512 Pain in left shoulder (principal); M25.551 Pain in right hip; Z87.891 Personal history of nicotine dependence; Z96.641 Presence of right artificial hip joint
CPT/HCPCS: 99283; 73030; 73502

== ENCOUNTER 2024-06-13 15:23 | Outpatient (CLI) | payer MEDICARE, BC, SELFPAY ==
--- NOTE | 2024-06-13 | DI.RAD_ITS ---
Exam(s) XR CHEST 2V PA LATERAL EXAM: XR CHEST 2V PA LATERAL CLINICAL HISTORY: CHRONIC COUGH R05.3 TECHNIQUE: 2D digital imaging was performed of the chest. Two images were obtained. PA and lateral views were obtained. COMPARISON: CR,XR XR PORTABLE CHEST AP from 05/29/2021 FINDINGS: MEDIASTINUM: Normal. HEART: Normal. PULMONARY VASCULATURE: Normal. LUNGS: No focal consolidating infiltrates. PLEURAL SPACE: No pleural effusion or pneumothorax. BONE:Within normal limits for the patient's age. OTHER FINDINGS:Normal. IMPRESSION: No acute pulmonary findings. DATA REPOSITORY: RADIATION DOSE DELIVERED:
== END 2024-06-13 15:43 ==
LOC: DI 15:24
PROVIDERS: PCP Family Medicine; Visit Provider Nurse Practitioner Family
DX: R05.3 Chronic cough (principal)
CPT/HCPCS: 36415; 80053; 87476; 87798; 71046; 82607; 82728; 82746; 83540; 83550; 84165; 84443; 85025; 85379; 86320; 86618

== ENCOUNTER 2024-06-13 15:24 | Outpatient (CLI) | payer MEDICARE, BC, SELFPAY ==
[2024-06-13 15:51] LABS: Abs Immature Grans 0.02 10^3/uL (0.0-0.06); Absolute Basophil Count 0.03 10^3/uL (0.0-0.2); Absolute Eosinophil Count 0.32 10^3/uL (0.0-0.7); Absolute Lymphocyte Count 1.74 10^3/uL (1.2-3.4); Absolute Monocyte Count 0.85 10^3/uL (0.1-0.8); Absolute Neutrophil Count 4.35 10^3/uL (1.2-6.7); Basophils % 0.4 %; Eosinophils % 4.4 %; HCT 34.6 % (40.0-50.0); HGB 11.3 g/dL (13.5-17.5); Immature Grans % 0.3 %; Lymphocytes % 23.8 %; MCH 32.4 pg (27.0-33.0); MCHC 32.7 % (32.0-36.0); MCV 99 fL (80-95); MPV 8.5 fL (8.0-11.0); Monocytes % 11.6 %; Neutrophils % 59.5 %; Platelet Count 210 10^3/uL (130-400); RBC 3.49 10^6/uL (4.36-5.78); RDW 14.3 % (11.8-14.1); RDW-SD 51.7 fL; WBC 7.31 10^3/uL (4.4-10.8)
[2024-06-13 16:21] LABS: D-Dimer 1165 ng/mlFEU (<500)
[2024-06-13 16:23] LABS: ALT 23 U/L (16-63); AST 21 U/L (15-37); Albumin 3.1 g/dL (3.4-5.0); Alkaline Phosphatase 58 U/L (46-116); Anion Gap 7.2 mmol/L (3-11); BUN 22 mg/dL (7-18); Bilirubin, Total 0.28 mg/dL (0.2-1.0); CO2 26.8 mmol/L (21.0-32.0); CREATININE 1.2 mg/dL (0.70-1.30); Chloride 103 mmol/L (98-107); Estimated GFR 62.29 (mL/min/1.73m2); Ferritin 402 ng/mL (26-388); Glucose 139 mg/dL (74-106); Potassium 4.1 mmol/L (3.5-5.1); Sodium 137 mmol/L (136-145); TSH (W/Ref FT4) 1.15 uIU/mL (0.36-3.74); Total Protein 8.4 g/dL (6.4-8.2)
[2024-06-13 16:33] LABS: Iron 26 ug/dL (65-175); Total Iron Binding Capacity 228 ug/dL (250-450); Transferrin Sat 11 % (20-55)
[2024-06-14 10:15] LABS: Vitamin B12 385 pg/mL (193-986)
[2024-06-14 17:57] LABS: Folate >24.0 ng/mL (See Note)
[2024-06-17 21:58] LABS: Anaplasma phagocytophilum Negative (Negative); B. miyamotoi PCR Negative (Negative); Babesia divergens/MO-1 Negative (Negative); Babesia duncani Negative (Negative); Babesia microti Negative (Negative); Ehrlichia chaffeensis Negative (Negative); Ehrlichia ewingii/canis Negative (Negative); Ehrlichia muris eauclairensis Negative (Negative)
[2024-06-18 15:07] LABS: Albumin 45.3 % (55.8-66.1); Albumin g/dL 3.5 g/dL (3.6-5.2); Comment (See Note); Total Protein 7.8 g/dL (6.3-8.2)
[2024-06-18 16:47] LABS: Immunotyping, Serum (See Note)
[2024-06-19 10:38] LABS: Lyme Ab w Rflx to Lyme Confirm Negative (Negative)
== END 2024-06-13 15:25 | disposition home or self-care (01) ==
LOC: LBO 15:25
PROVIDERS: PCP Family Medicine; Visit Provider Nurse Practitioner Family
DX: R53.83 Other fatigue (principal); R05.3 Chronic cough
CPT/HCPCS: 36415; 80053; 87476; 87798; 82607; 82728; 82746; 83540; 83550; 84165; 84443; 85025; 85379; 86320; 86618

== ENCOUNTER 2024-06-18 15:03 | Outpatient (CLI) | payer MEDICARE, BC, SELFPAY ==
--- NOTE | 2024-06-18 | DI.CT_ITS ---
Exam(s) CT CHEST PE CTA EXAM: CT CHEST PE CTA CLINICAL HISTORY: D-DIMER ABOVE REFERENCE RANGE R79.1. TECHNIQUE: Imaging Protocol: Axial CT angiography was performed with multi-slice acquisition and mu lti-planar reconstructions as well as axial, coronal and sagittal MIP reconstructions. Computer aided detection (CAD) was utilized. CONTRAST MATERIAL: Intravenous: Omnipaque 350 Contrast volume:100 ml COMPARISON: CT CT RENAL COLIC WO from 11/26/2022 FINDINGS: Pulmonary Arteries: No evidence of filling defect to suggest pulmonary emboli. Mediastinum and Francesca: No dominant adenopathy or fluid collection. Pulmonary parenchyma: No consolidation or dominant measurable mass. Pleura: No effusion or pneumothorax. Heart: The heart is not dilated. Mild coronary artery calcifications are seen. Aorta: Thoracic aorta non-dilated. No dissection. Upper abdomen: No acute findings. Bones: Unremarkable for age. Tubes, Catheters, and Lines: None Soft tissues: Unremarkable. IMPRESSION: No evidence of pulmonary embolism or other acute abnormality. RADIATION DOSE DELIVERED: Total DLP DATA REPOSITORY: All CT scans at this facility are submitted to the National Radiology Data Registry (NRDR) Dose Index Registry (DIR) with the [employer] (ACR). RADIATION OPTIMIZATION: All CT scans at this facility use at least one of these dose optimization te chniques: automated exposure control; mA and/or kV adjustment per patient size (includes targeted exa ms where dose is matched to clinical indication); or iterative reconstruction.
[2024-06-18] MEDS: Normal Saline - Diluent 50 ML VIAL IJ (14:55)
[2024-06-18] MEDS: Omnipaque 350 MG/ML 100 ML BTL IJ (14:55)
== END 2024-06-18 15:23 ==
LOC: DI 15:09
PROVIDERS: PCP Family Medicine; Visit Provider Nurse Practitioner Family
DX: R79.1 Abnormal coagulation profile (principal)
CPT/HCPCS: 71275; J3490

== ENCOUNTER 2024-06-20 03:10 | Outpatient (CLI) | payer MEDICARE, BC, SELFPAY ==
[2024-06-20] MEDS: Levalbuterol HFA 15 GM INH 4 PUFF IH (09:15)
[2024-06-20] MEDS: Inhaler, Assist Device 1 EACH MC (09:15)
--- NOTE | 2024-06-20 14:38 | W.PFT ---
Date of service: 06/20/24 Time of Service: 07:59 Pulmonary Function Test Result Indications: Cough Interpretation Spirometry: No airflow limitation. No bronchodilator response. Lung Volumes: Normal lung volumes Diffusion Capacity: Reduced diffusion Airway Pressure: Normal airways resistance Impression Isolated diffusion deficit. This could represent emphysema, ILD or pulmonary vascular disease. Clinical Correlation therefore is recommended.
== END 2024-06-20 03:11 | disposition home or self-care (01) ==
LOC: RT 03:11
PROVIDERS: PCP Family Medicine; Visit Provider Nurse Practitioner Family
DX: R05.3 Chronic cough (principal)
CPT/HCPCS: 94060; 94726; 94729

== ENCOUNTER → 2024-07-09 13:10 | Outpatient (BNVA) | payer MEDICARE, BC, SELFPAY | PROVIDERS: PCP Family Medicine; Referring Provider Family Medicine; Visit Provider Surgery | DX: Z12.11 Encounter for screening for malignant neoplasm of colon (principal); R19.5 Other fecal abnormalities ==

== ENCOUNTER 2024-07-29 07:40 | Day surgery (SDC) | payer MEDICARE, BC, SELFPAY ==
--- NOTE | 2024-07-28 16:59 | PDOC.DSDIS_ITS ---
Date of service: 07/29/24 Discharge Plan Disposition Patient Disposition: Home Condition: Good Discharge Details Reason For Visit: screening colonoscopy Attending Provider: Louis Posey Primary Care Provider: Fer Joy Home Meds and New Rx's Prescriptions: Continued multivitamin tablet 1 tab PO DAILY calcium-magnesium 500-250 mg tablet 1 tab PO DAILY vitamin B complex [B Complex-Vitamin B12] Tablet 1 tab PO DAILY fexofenadine [Sunshine Allergy] 180 mg tablet 180 mg PO DAILY fluticasone propionate [Flonase Allergy Relief] 50 mcg/actuation spray,suspension 1 spray intranasal DAILY Rx Instructions: administer into each nostril Metamucil 3.4 gram/5.4 gram powder 1 tbsp PO DAILY Rx Instructions: mix into at least 8 oz of water or juice before administering acetaminophen [Tylenol Extra Strength] 500 mg tablet 500 mg PO Q6H PRNQty: 90 0RF ibuprofen 600 mg tablet 600 mg PO TID Qty: 90 0RF ascorbic acid (vitamin C) [Vitamin C] 500 mg Tablet 500 mg PO DAILY cholecalciferol (vitamin D3) [Vitamin D3] 50 mcg (2,000 unit) Capsule 50 mcg PO DAILY Discontinued bisacodyl [Dulcolax (bisacodyl)] 5 mg tablet,delayed release (DR/EC) 5 mg PO ONCE Qty: 4 0RF Rx Instructions: Take per colonoscopy instructions provided by ordering providers office polyethylene glycol 3350 17 gram/dose powder 17 g PO ONCE Qty: 238 0RF Rx Instructions: Take per colonoscopy instructions provided by ordering providers office Discharge Instructions Additional Instructions: Parvez, is very nice seeing you today, and I hope you are comfortable throughout the procedure. Your prep was excellent and I could see everything fine. The most noticeable thing on your colonoscopy is a few areas of inflammation. These are almost certainly the cause of the positive stool test that you had done. I did take out a few small specimens which I labeled as polyps, although I suspect that they are not in fact true adenomatous polyps, rather just some inflammatory changes of the lining of the colon. I did another biopsy of some inflamed tissue in a separate area. All these biopsies will take about a week or 2 to get back, and once I have them I will be in touch regarding any other recommendations. My suspicion is that you may have some mild subclinical inflammatory bowel disease such as Crohn's disease or ulcerative colitis. However the side effect of some medications that patients take could also cause some of these chronic changes. I do not think this is anything you need to lose any sleepover, and as soon as I have more information I will let you know. In t he meantime, if you have any questions or concerns, please do not hesitate to ask. 1. If tolerated, consume a soft, low fiber diet for 1-2 days. 2[address] Do not drive, drink alcohol, operate machinery, make critical decisions, or do activities that require coordination or balance for 24 hours. 3. Because air was put into your colon during the procedure, expelling air from your rectum (passing gas or farting) is normal. 4. You may not have a bowel movement for 1-3 days because of the colonoscopy prep. This is normal. 5. Go directly to the emergency room if you notice any of the following: Develop chills (warm to touch), or if you have a thermometer and your temperature is above 101 Difficulty breathing or difficultly swallowing Persistent vomiting Severe abdominal pain, other than gas cramps Severe chest pain Black, tarry stools Any bleeding ? exceeding one tablespoon 6. Call your physician if the site where your intravenous was started becomes red, swollen, painful, and warm to touch. 7. Your physician has reviewed your pre-procedure medications. Please continue to take those medications as previously ordered. You will be given specific information/education regarding any changes to your medications before leaving. Activity:: Activity as Tolerated Diet:: As Tolerated Discharge Orders Discharge Orders: Discharge Order (Routine); Ordered 07/28/24 Ordered By: Louis Posey DS: Diagnosis Discharge Diagnosis (1) Encounter for screening colonoscopy: Status: Acute Asessment and Plan: Follow-up on biopsy results
--- NOTE | 2024-07-28 17:00 | W.COLOREPORT ---
Date of service: 07/29/24 Time of Service: 09:29 Colonoscopy Report Date of procedure: 07/29/24 Pre-op diagnosis general: screening colonoscopy Post-op diagnosis procedure note: other (Colon polyps and colitis) Procedure: colonoscopy with polypectomy Surgeon: Louis Posey Anesthesia Type: General:No Airway Estimated blood loss (mL): 10 Pathology: other (3 colon polyps in the ascending colon all sent as a single specimen, biopsy of inflammation around 60 cm from the anus) Complications: None Disposition: same day Indications: Gamal is a 78 year old man who needs his next screening colonoscopy Prep: Miralax/Dulcolax Procedure Start Time: 08:53 Procedure End Time: 09:15 Retraction Time: 14 Findings: Diffuse inflammation, and cobblestoning of the colon extending from about 20 cm beyond the anus to about 60 cm. 3 small punctate areas of polypoid tissue in the ascending colon Procedure Description: After the induction of anesthesia, and with the patient in left lateral decubitus position, I began by performing an external anorectal exam.? Perineum and skin were normal, as was the anal verge.? There was no evidence of external hemorrhoids.? Next, I performed a digital rectal exam.? I did not appreciate any abnormal findings.? Next, I advanced a colonoscope into the rectal vault.? I performed retroflexion.? This appeared normal.? In the mid and upper rectal vault with some mild irregularity of the colonic mucosa, giving a slightly cobblestoned appearance. Using insufflation, I then advanced the colonoscope beyond the rectal folds and into the sigmoid colon before advancing towards the cecum.? Beginning around 20 cm from the anal verge and extending to about 60 cm is some hyperemic and slightly friable colonic mucosa. Again, there is some cobblestoning appearance here. Narrowband imaging was used to assist with the analysis. I continued advancing towards the right side the scope was noted to be in the cecum by identification of the ileocecal valve and appendiceal orifice.? I then began withdrawing the colonoscope using repeated irrigation as necessary for full evaluation of the colonic mucosa. There is a diffuse area of inflammation, and a few punctate areas of polypoid tissue in the ascending colon. These were retrieved with cold forceps and all sent as a single specimen. Again, about 60 cm from the anal verge was some inflamed tissue. There was 1 single area of prominent tissue that was biopsied with cold forceps. There was an appropriate amount of bleeding from this area. Once the scope was withdrawn to the level of the rectum, great care was taken to examine portions of the rectal folds.? Finally, the scope was withdrawn and the patient was brought to the same-day surgery recovery unit as the anesthetic wore off. ?The findings and instructions were shared with the patient prior to discharge. [place] Bowel Prep [place] Bowel Prep Right Colon: 3 Left Colon: 3 Transverse Colon: 3 Total Score: 9
[2024-07-29 07:50] VITALS: BP 116/66; PULSE 79; RESP 20; TEMP 36.7; O2SAT 97
[2024-07-29] MEDS: Normal Saline 500 ML 30 ML IV (08:30)
--- NOTE | 2024-07-29 08:36 | W.ANESPRE ---
General Info Date of Service Date Performed: 07/29/24 Height: 5 ft 10 in Weight: 88.1 kg Body Mass Index (BMI): 27.8 Surgical Procedure: Operation Date: 07/29/24 09:05 Proposed Procedure Side Surgeon cora Posey MD Meds Allergies and Home Medications Allergies Allergy/AdvReac Type Severity Reaction Status Date / Time Sulfa (Sulfonamide Allergy Intermediate Skin Rash, Verified 07/29/24 08:15 Antibiotics) hives, all red and blotchy Home Medication ?Medication ?Instructions ?Recorded calcium-magnesium 500 mg-250 mg 1 tab PO DAILY 01/16/19 tablet multivitamin 1 tab PO DAILY 01/16/19 vitamin B complex (B 1 tab PO DAILY 09/16/20 Complex-Vitamin B12 tablet) acetaminophen 500 mg tablet 500 mg PO Q6H PRN #90 tabs 12/02/20 (Tylenol Extra Strength) ibuprofen 600 mg tablet 600 mg PO TID #90 tabs 12/02/20 ascorbic acid (vitamin C) 500 mg 500 mg PO DAILY 05/29/21 tablet (Vitamin C) cholecalciferol (vitamin D3) 50 50 mcg PO DAILY 05/29/21 mcg (2,000 unit) capsule (Vitamin D3) fexofenadine 180 mg tablet 180 mg PO DAILY 06/28/24 (Sunshine Allergy) fluticasone propionate 50 1 spray intranasal DAILY 06/28/24 mcg/actuation nasal spray,suspension (Flonase Allergy Relief) psyllium husk 3.4 gram/5.4 gram 1 tbsp PO DAILY 06/28/24 oral powder (Metamucil) Current Visit Medications: Current Medications Generic Name Dose Route Start Last Admin Trade Name Freq PRN Reason Stop Dose Admin Sodium Chloride 500 mls @ 30 mls/hr 07/29/24 08:00 Saline 500ml Bag IV 08/28/24 07:59 INFUSION [facility] IV Miscellaneous Supplies 1 each 07/29/24 06:00 Iv Access IV 08/25/24 23:59 DIRECTED MEGAN Ondansetron HCl 4 mg 07/28/24 17:01 Ondansetron 4 Mg/2 Ml Vial IVP 08/27/24 17:00 Q4H PRN PRN Nausea / Vomiting Sodium Chloride 0 ml 07/29/24 06:00 Normal Saline Flush 10 Ml Syr IV 08/25/24 23:59 PRN PRN Sodium Chloride 0 ml 07/29/24 06:00 Normal Saline 10 Ml Vial IJ 08/25/24 23:59 DIRECTED PRN Sterile Water 0 ml 07/29/24 06:00 Water,Injection,Sterile 10 Ml Vial IJ 08/25/24 23:59 DIRECTED PRN PFSH Active Problems Active Problems: Problem Status Onset Code Encounter for screening colonoscopy Acute Z12.11 Induration penis plastica Acute N48.6 Arthritis of both glenohumeral joints Acute M19.011, M19.012 Left rotator cuff tear Acute M75.102 Intermittent palpitations Acute R00.2 Chest pain Acute R07.9 Infection of bursa Acute M71.10 Infrapatellar bursitis Acute M70.50 Left carpal tunnel syndrome Acute G56.02 Right carpal tunnel syndrome Acute G56.01 Anemia Acute 03/09/18 D64.9 Chronic otitis media Acute 09/23/13 H66.90 Chronic serous otitis media Acute 09/23/13 H65.20 Conductive hearing loss Acute 09/23/13 H90.2 Erythema migrans (Lyme disease) Acute 02/05/18 A69.20 Mixed hearing loss Acute 05/27/14 H90.8 Other disorders of Eustachian tube Acute 05/26/14 H69.80 Partial tear of left rotator cuff Acute 02/01/16 M75.112 Primary osteoarthritis of right hip Acute 09/07/16 M16.11 Sensorineural hearing loss Acute 05/27/14 H90.5 Trochanteric bursitis, right hip Acute 12/27/17 M70.61 Tympanic membrane perforation Acute 05/26/14 H72.90 Sprain of abdominal wall Acute S39.011A Lumbar radicular syndrome Acute M54.16 Trigger little finger of right hand Acute M65.351 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 ear Acute H90.A32 Medical History Medical History Atrial premature complex Ophthalmic migraine History of COVID-19 (~02/2024) Urinary stone Edema of lower extremity Fatigue Benign prostatic hyperplasia Allergic rhinitis History of varicocele DVT (deep venous thrombosis) (~09/2023) Asymptomatic varicose veins Preventative health care Lumbar back pain Fecal incontinence Skin lesion Infection and inflammatory reaction due to internal right hip prosthesis, sequela Anemia due to blood loss History of snoring Contact dermatitis Diarrhea Hand numbness Osteoarthritis of neck Pre-diabetes pt. 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/2017 Vasectomy Total replacement of hip 2017 anterior R Extraction of cataract bilateral Arthroscopy, Shoulder bilateral Tobacco Smoking/Tobacco Use Status: Former Tobacco Use Alcohol Alcohol Intake: current Alcohol intake frequency: a few times a month Alcohol type: hard liquor Substance Use Substance use: Never Substance use type: does not use Vital Signs and Lab Results Vital Signs Most Recent Vital Signs in EMR: Most Recent Vital Signs Temp Pulse Resp BP Pulse Ox 36.7 C 79 20 116/66 97 07/29/24 07:50 07/29/24 07:50 07/29/24 07:50 07/29/24 07:50 07/29/24 07:50 Lab Results Blood Type / Crossmatch: No Data to Display Complete Blood Count: No Data to Display Complete Metabolic Panel: No Data to Display Liver Function Panel: No Data to Display Coagulation Panel: No Data to Display Cardiac Panel: No Data to Display Arterial Blood Gas: No Data to Display Venous Blood Gas: No Data to Display Pancreas Panel: No Data to Display Thyroid Panel: No Data to Display Infectious Disease: No Data to Display Blood Cultures: No Data to Display Toxicology Panel: No Data to Display Imaging and Studies Imaging and Studies Study information below may be from another EMR and interpreted by another provider. Please see original notes in EMR for more complete details. EKG Summary: 05/29/21 Conclusion Sinus rhythm...normal P axis, V-rate 60- 99 Echocardiogram Summary: Summary: 1. Left ventricle: The cavity size was normal. Systolic function was normal. The estimated ejection fraction was 60-65%. 2. Left atrium: The atrium was mildly dilated. 3. Right ventricle: The cavity size was normal. Wall thickness was normal. Systolic function was normal. 4. Right atrium: The atrium was mildly dilated. 5. Atrial septum: No defect or patent foramen ovale was identified. 6. Pulmonary arteries: Pulmonary systolic pressure was in the range of 40mm Hg to 50mm Hg. 7. Inferior vena cava: The vessel was normal in size. The respirophasic diameter changes were in the normal range (greater than or equal to 50%), consistent with normal central venous pressure. 11/07/16 Other Study Summary:: 06/20/24 Impression Isolated diffusion deficit. This could represent emphysema, ILD or pulmonary vascular disease. Clinical Correlation therefore is recommended. Anesthesia Assessment and Plan Anesthesia History Personal History: No History of Anesthesia Complications Family History: No Family History of Anesthesia Complications Exercise Tolerance Exercise Tolerance: Metabolic Equivalents>4 Pertinent Negatives Pertinent Negatives: No Symptoms of GERD, No Major Cardiovascular Symptoms or Complaints and No Major Pulmonary Symptoms or Complaints Cardiac & Pulmonary Exam Cardiac Exam: Normal S1/S2 Heart Sounds Pulmonary Exam: Clear Bilateral Breath Sounds Implantable Cardiac Device Does patient have a Pacemaker or an ICD?: No Airway Exam Known Difficult Airway: No Mallampati Class: 1 Mouth Opening: Normal (> 3cm) Thyromental Distance: Greater than 3 cm Neck Range of Motion: Full ROM Neck Circumference: Normal Teeth Condition: Normal Dentition and Removable Dentures/Plates Upper ASA Classification ASA Score: ASA 2 Emergency Case?: No NPO Status NPO Status: NPO Clears >2 hours, Solids >8 hours Anesthesia Plan Resuscitation Status: Full Code Anesthesia Technique: General Anesthesia Airway Planned: Natural Airway Monitors Used: Standard Monitors
[2024-07-29 08:39] VITALS: BMI 27.8
--- NOTE | 2024-07-29 09:05 | BOWEL_PTH ---
PATIENT: Gamal Zabala LOC: [facility] U#:[id number] AGE/SX: 78/M ROOM: RE07/29/[address]: Louis Posey MD : 1945 BED: DIS: 07/29/2024 SPEC #: [id number] RECD: 07/29/24 12:50 STATUS: SULAIMAN REQ #: [id number] NGUYEN: 07/29/24 09:[address]: Louis Posey DEPT: Surgical Specimen RECD BY: Kellie Campos ENTERED: 07/29/24 12:55 SP TYPE: Bowel OTHR DR: Fer Joy Tissues: 1 - BIOPSY BOWEL 2 - BIOPSY BOWEL Procedures: GROSS AND MICRO LEVEL 4 Comments: [id number]
[2024-07-29 09:20] VITALS: BP 104/71; PULSE 76; RESP 18; TEMP 36.5; O2SAT 93
[2024-07-29 09:46] VITALS: BP 103/65; PULSE 70; RESP 18; TEMP 36.5; O2SAT 95
--- NOTE | 2024-07-29 10:05 | W.ANESPOSTOP ---
Postoperative Evaluation Date, Time and Location Date Performed: 07/29/24 Time Performed: 10:01 Patient Location: Day Surgery Unit Vital Signs Most Recent Imported Vital Signs: Most Recent Vital Signs Temp Pulse Resp BP Pulse Ox 36.5 C 70 18 103/65 95 07/29/24 09:46 07/29/24 09:46 07/29/24 09:46 07/29/24 09:46 07/29/24 09:46 Pain Score Most Recent Pain Score: Most Recent Pain Score Pain Level 0 07/29/24 09:46 Assessment Mental Status: Awake (Alert & Oriented to Patient Baseline) Airway and Respiratory Function: Patent airway with normal (patient baseline) respiratory exam Cardiovascular Function: Hemodynamically Stable Hydration Status: Adequately Hydrated Nausea & Vomiting: No Nausea or Vomiting Pain: Pt. Denies Any Pain Peripheral Nerve Block: Patient did not receive a nerve block Postoperative Comments:: Bile emesis during procedure. Was able to cough and clear. informed patient, discussed what to do if any respiratory symptoms were to arise
== END 2024-07-29 10:00 | disposition home or self-care (01) ==
PROVIDERS: PCP Family Medicine; Visit Provider Surgery
PROC: 0DJD8ZZ Inspection of Lower Intestinal Tract, Via Natural or Artificial Opening Endoscopic (ICD-10-PCS; CPT 45378; principal; 2024-07-29 09:00)
DX: Z12.11 Encounter for screening for malignant neoplasm of colon (principal); K63.3 Ulcer of intestine
CPT/HCPCS: 45380; 88305; J2704

== ENCOUNTER → 2024-08-28 14:25 | Outpatient (BNVA) | payer MEDICARE, BC, SELFPAY | PROVIDERS: PCP Family Medicine; Referring Provider Family Medicine; Visit Provider Student in an Organized Health Care Education/Training Program | DX: M75.102 Unspecified rotator cuff tear or rupture of left shoulder, not specified as traumatic (principal); M19.011 Primary osteoarthritis, right shoulder; M19.012 Primary osteoarthritis, left shoulder | CPT/HCPCS: 99215 ==

== ENCOUNTER 2024-09-17 03:15 | Outpatient (CLI) | payer MEDICARE, BC, SELFPAY ==
[2024-09-17 13:33] LABS: HCT 37.8 % (40.0-50.0); HGB 12.3 g/dL (13.5-17.5); MCH 32.4 pg (27.0-33.0); MCHC 32.5 % (32.0-36.0); MCV 100 fL (80-95); MPV 9.2 fL (8.0-11.0); Platelet Count 176 10^3/uL (130-400); RDW 14.8 % (11.8-14.1); RDW-SD 54.3 fL; WBC 6.92 10^3/uL (4.4-10.8)
[2024-09-17 13:36] LABS: ESR 36 mm/hr (0-20)
[2024-09-17 13:45] LABS: Prothrombin Time 10.5 sec (9.1-11.1)
[2024-09-17 13:58] LABS: ALT 20 U/L (16-63); AST 19 U/L (15-37); Albumin 3.4 g/dL (3.4-5.0); Alkaline Phosphatase 50 U/L (46-116); Anion Gap 6.1 mmol/L (3-11); BUN 16 mg/dL (7-18); Bilirubin, Total 0.35 mg/dL (0.2-1.0); C-Reactive Protein 0.53 mg/dL (<or=0.5); CO2 28.9 mmol/L (21.0-32.0); CREATININE 1.2 mg/dL (0.70-1.30); Calcium 9.3 mg/dL (8.5-10.1); Chloride 103 mmol/L (98-107); Glucose 167 mg/dL (74-106); Sodium 138 mmol/L (136-145); Total Protein 8.4 g/dL (6.4-8.2)
[2024-09-17 21:33] LABS: Rheumatoid Factor <8.6 IU/mL (<12.0)
[2024-09-18 10:17] LABS: Cyclic Citrullinated Peptide <2.5 U/mL (<5.0)
[2024-09-18 14:10] LABS: ANA Interpretation Negative (Negative)
== END 2024-09-17 03:16 | disposition home or self-care (01) ==
LOC: LBO 03:15
PROVIDERS: PCP Family Medicine; Visit Provider Student in an Organized Health Care Education/Training Program
DX: K51.40 Inflammatory polyps of colon without complications
CPT/HCPCS: 36415; 80053; 85027; 85652; 86200; 85610; 86038; 86140; 86431

== ENCOUNTER → 2024-09-25 13:03 | Outpatient (BNVA) | payer MEDICARE, BC, SELFPAY | PROVIDERS: PCP Family Medicine; Referring Provider Family Medicine; Visit Provider Student in an Organized Health Care Education/Training Program | DX: M75.102 Unspecified rotator cuff tear or rupture of left shoulder, not specified as traumatic (principal) | CPT/HCPCS: 99214 ==

== ENCOUNTER 2024-10-17 06:06 | Day surgery (SDC) | payer MEDICARE, BC, SELFPAY ==
[2024-10-17] VITALS (31 sets, daily range): BP systolic 101–135; BP diastolic 40–64; PULSE 70–88; RESP 12–26; TEMP 35.9–36.9; O2SAT 92–99; BMI 28.8
--- NOTE | 2024-10-17 06:53 | ANES.PREOP_ITS ---
General Info Date of Service Date Performed: 10/17/24 Height: 5 ft 10 in Weight: 91.2 kg Body Mass Index (BMI): 28.8 Surgical Procedure: Operation Date: 10/17/24 07:40 Proposed Procedure Side Surgeon p Shoulder Reverse Total Arthroplasty, Biceps Tenodesis Left Ruben Harris MD Meds Allergies and Home Medications Allergies Allergy/AdvReac Type Severity Reaction Status Date / Time Sulfa (Sulfonamide Allergy Intermediate Skin Rash, Verified 10/17/24 06:17 Antibiotics) hives, all red and blotchy Home Medication ?Medication ?Instructions ?Recorded calcium-magnesium 500 mg-250 mg 1 tab PO DAILY 01/16/19 tablet multivitamin 1 tab PO DAILY 01/16/19 vitamin B complex (B 1 tab PO DAILY 09/16/20 Complex-Vitamin B12 tablet) acetaminophen 500 mg tablet 500 mg PO Q6H PRN #90 tabs 12/02/20 (Tylenol Extra Strength) ibuprofen 600 mg tablet 600 mg PO TID #90 tabs 12/02/20 ascorbic acid (vitamin C) 500 mg 500 mg PO DAILY 05/29/21 tablet (Vitamin C) cholecalciferol (vitamin D3) 50 50 mcg PO DAILY 05/29/21 mcg (2,000 unit) capsule (Vitamin D3) fexofenadine 180 mg tablet 180 mg PO DAILY 06/28/24 (Sunshine Allergy) fluticasone propionate 50 1 spray intranasal DAILY 06/28/24 mcg/actuation nasal spray,suspension (Flonase Allergy Relief) psyllium husk 3.4 gram/5.4 gram 1 tbsp PO DAILY 06/28/24 oral powder (Metamucil) Current Visit Medications: Current Medications Generic Name Dose Route Start Last Admin Trade Name Freq PRN Reason Stop Dose Admin Ringer's Solution 1,000 mls @ 30 mls/hr 10/17/24 06:00 IV 11/15/24 23:59 INFUSION MEGAN Cefazolin Sodium 3,000 mg/ 100 mls @ 200 mls/hr 10/17/24 06:00 Sodium Chloride IV 11/15/24 23:59 PREOP MEGAN Tranexamic Acid/Sodium Chloride 1,000 mg in 100 mls @ 600 mls/hr 10/17/24 06:00 IVPB 11/15/24 23:59 PREOP MEGAN IV Miscellaneous Supplies 1 each 10/17/24 06:00 Iv Access IV 11/15/24 23:59 DIRECTED MEGAN Sodium Chloride 0 ml 10/17/24 06:00 Normal Saline Flush 10 Ml Syr IV 11/15/24 23:59 PRN PRN Sodium Chloride 0 ml 10/17/24 06:00 Normal Saline 10 Ml Vial IJ 11/15/24 23:59 DIRECTED PRN Sterile Water 0 ml 10/17/24 06:00 Water,Injection,Sterile 10 Ml Vial IJ 11/15/24 23:59 DIRECTED PRN PFSH Active Problems Active Problems: Problem Status Onset Code Encounter for screening colonoscopy Acute Z12.11 Induration penis plastica Acute N48.6 Arthritis of both glenohumeral joints Acute M19.011, M19.012 Left rotator cuff tear Acute M75.102 Intermittent palpitations Acute R00.2 Chest pain Acute R07.9 Infection of bursa Acute M71.10 Infrapatellar bursitis Acute M70.50 Left carpal tunnel syndrome Acute G56.02 Right carpal tunnel syndrome Acute G56.01 Anemia Acute 03/09/18 D64.9 Chronic otitis media Acute 09/23/13 H66.90 Chronic serous otitis media Acute 09/23/13 H65.20 Conductive hearing loss Acute 09/23/13 H90.2 Erythema migrans (Lyme disease) Acute 02/05/18 A69.20 Mixed hearing loss Acute 05/27/14 H90.8 Other disorders of Eustachian tube Acute 05/26/14 H69.80 Partial tear of left rotator cuff Acute 02/01/16 M75.112 Primary osteoarthritis of right hip Acute 09/07/16 M16.11 Sensorineural hearing loss Acute 05/27/14 H90.5 Trochanteric bursitis, right hip Acute 12/27/17 M70.61 Tympanic membrane perforation Acute 05/26/14 H72.90 Sprain of abdominal wall Acute S39.011A Lumbar radicular syndrome Acute M54.16 Trigger little finger of right hand Acute M65.351 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 ear Acute H90.A32 Medical History Medical History Atrial premature complex Ophthalmic migraine History of COVID-19 (~02/2024) Urinary stone Edema of lower extremity Fatigue Benign prostatic hyperplasia Allergic rhinitis History of varicocele DVT (deep venous thrombosis) (~09/2023) Asymptomatic varicose veins Preventative health care Lumbar back pain Fecal incontinence Skin lesion Infection and inflammatory reaction due to internal right hip prosthesis, sequela Anemia due to blood loss History of snoring Contact dermatitis Diarrhea Hand numbness Osteoarthritis of neck Pre-diabetes pt. denies this Rash Macrocytic anemia Lumbar radiculopathy Back pain Marginal perforation of tympanic membrane of left ear Fecal smearing Memory impairment Obesity Osteoarthritis, shoulder Spinal stenosis Radicular pain Hyperlipidemia Scrotal varices Varicose vein of leg Chronic cough Rotator cuff syndrome Actinic keratoses Peyronie disease Surgical History Surgical History History of colonoscopy (~07/2024) S/P trigger finger release (~2020) Hx of carpal tunnel repair (~2020) History of excision of pilonidal cyst History of total replacement of right hip back surgery 10/2017 Vasectomy Total replacement of hip 2017 anterior R Extraction of cataract bilateral Arthroscopy, Shoulder bilateral Tobacco Smoking/Tobacco Use Status: Former Tobacco Use Alcohol Alcohol Intake: current Alcohol intake frequency: a few times a month Alcohol type: hard liquor Substance Use Substance use: Never Substance use type: does not use Vital Signs and Lab Results Vital Signs Most Recent Vital Signs in EMR: Most Recent Vital Signs Temp Pulse Resp BP Pulse Ox 36.8 C 86 18 135/64 99 10/17/24 06:19 10/17/24 06:19 10/17/24 06:19 10/17/24 06:19 10/17/24 06:19 Lab Results Blood Type / Crossmatch: No Data to Display Complete Blood Count: White Blood Count 6.92 10^3/uL (4.4-10.8) 09/17/24 13:25 Red Blood Count 3.80 10^6/uL (4.36-5.78) L 09/17/24 13:25 Hemoglobin 12.3 g/dL (13.5-17.5) L 09/17/24 13:25 Hematocrit 37.8 % (40.0-50.0) L 09/17/24 13:25 Platelet Count 176 10^3/uL (130-400) 09/17/24 13:25 Complete Metabolic Panel: Sodium 138 mmol/L (136-145) 09/17/24 13:25 Potassium 4.0 mmol/L (3.5-5.1) 09/17/24 13:25 Chloride 103 mmol/L (98-107) 09/17/24 13:25 Carbon Dioxide 28.9 mmol/L (21.0-32.0) 09/17/24 13:25 BUN 16 mg/dL (7-18) 09/17/24 13:25 Creatinine 1.2 mg/dL (0.70-1.30) 09/17/24 13:25 Est GFR (CKD-EPI 2020) 61.90 (mL/min/1.73m2) 09/17/24 13:25 Calcium 9.3 mg/dL (8.5-10.1) 09/17/24 13:25 Albumin 3.4 g/dL (3.4-5.0) 09/17/24 13:25 Glucose 167 mg/dL (74-106) H 09/17/24 13:25 C-Reactive Protein 0.53 mg/dL (<or=0.5) H 09/17/24 13:25 Liver Function Panel: Alanine Aminotransferase (ALT/SGPT) 20 U/L (16-63) 09/17/24 13: 25 Aspartate Amino Transf (AST/SGOT) 19 U/L (15-37) 09/17/24 13:25 Coagulation Panel: INR International Normalized Ratio 1.0 (0.9-1.1) 09/17/24 13:2 5 Prothrombin Time 10.5 sec (9.1-11.1) 09/17/24 13:25 Cardiac Panel: No Data to Display Arterial Blood Gas: No Data to Display Venous Blood Gas: No Data to Display Pancreas Panel: No Data to Display Thyroid Panel: No Data to Display Infectious Disease: No Data to Display Blood Cultures: No Data to Display Toxicology Panel: No Data to Display Imaging and Studies Imaging and Studies Study information below may be from another EMR and interpreted by another provider. Please see original notes in EMR for more complete details. EKG Summary: 05/29/21 Conclusion Sinus rhythm...normal P axis, V-rate 60- 99 Echocardiogram Summary: Summary: 1. Left ventricle: The cavity size was normal. Systolic function was normal. The estimated ejection fraction was 60-65%. 2. Left atrium: The atrium was mildly dilated. 3. Right ventricle: The cavity size was normal. Wall thickness was normal. Systolic function was normal. 4. Right atrium: The atrium was mildly dilated. 5. Atrial septum: No defect or patent foramen ovale was identified. 6. Pulmonary arteries: Pulmonary systolic pressure was in the range of 40mm Hg to 50mm Hg. 7. Inferior vena cava: The vessel was normal in size. The respirophasic diameter changes were in the normal range (greater than or equal to 50%), consistent with normal central venous pressure. 11/07/16 Other Study Summary:: 06/20/24 Impression Isolated diffusion deficit. This could represent emphysema, ILD or pulmonary v ascular disease. Clinical Correlation therefore is recommended. Anesthesia Assessment and Plan Anesthesia History Personal History: No History of Anesthesia Complications Family History: No Family History of Anesthesia Complications Exercise Tolerance Exercise Tolerance: Metabolic Equivalents>4 Pertinent Negatives Pertinent Negatives: No Symptoms of GERD Cardiac & Pulmonary Exam Cardiac Exam: Normal S1/S2 Heart Sounds Pulmonary Exam: Clear Bilateral Breath Sounds Implantable Cardiac Device Does patient have a Pacemaker or an ICD?: No Airway Exam Known Difficult Airway: No Mallampati Class: 1 Mouth Opening: Normal (> 3cm) Thyromental Distance: Greater than 3 cm Neck Range of Motion: Full ROM Neck Circumference: Normal Teeth Condition: Normal Dentition and Removable Dentures/Plates Upper ASA Classification ASA Score: ASA 2 Emergency Case?: No NPO Status NPO Status: NPO Clears >2 hours, Solids >8 hours Anesthesia Plan Resuscitation Status: Full Code Anesthesia Technique: General Anesthesia Airway Planned: Endotracheal Tube Pain Management: Surgeon and patient request nerve block Monitors Used: Standard Monitors
--- NOTE | 2024-10-17 07:00 | DI.RAD_ITS ---
Exam(s) XR SHOULDER LT COMPLETE 2+V EXAM: XR SHOULDER LT COMPLETE 2+V CLINICAL HISTORY: Reverse TSA. TECHNIQUE: 2D digital imaging was performed. Three views. Portable COMPARISON: CR XR SHOULDER LT COMPLETE 2+V from 04/30/2024 FINDINGS: BONES: No acute fracture is present. No bony destructive lesion is seen. JOINTS: A reverse shoulder prosthesis has been placed. The alignment appears satisfactory. SOFT TISSUE: Postsurgical air in the soft tissues. IMPRESSION: Satisfactory alignment of reverse shoulder prosthesis. DATA REPOSITORY: RADIATION DOSE DELIVERED:
--- NOTE | 2024-10-17 07:08 | W.PM.DSUDISC ---
Date of service: 10/17/24 Discharge Plan Disposition Patient Disposition: Home Condition: Stable Discharge Details Attending Provider: Ruben Harris Primary Care Provider: Fer Joy Home Meds and New Rx's Prescriptions: New aspirin 81 mg tablet,delayed release (DR/EC) 81 mg PO DAILY 7 Days Qty: 7 0RF naproxen 250 mg tablet 250 mg PO BID PRN (Reason: Moderate pain) Qty: 40 0RF tramadol 50 mg tablet 50 mg PO TID PRNQty: 18 0RF Bio-K plus 50 billion cell capsule,delayed release(DR/EC) 1 cap PO DAILY Qty: 14 0RF doxycycline monohydrate 100 mg capsule 100 mg PO BID 14 Days Qty: 28 0RF Continued multivitamin tablet 1 tab PO DAILY calcium-magnesium 500-250 mg tablet 1 tab PO DAILY vitamin B complex [B Complex-Vitamin B12] Tablet 1 tab PO DAILY fexofenadine [Sunshine Allergy] 180 mg tablet 180 mg PO DAILY fluticasone propionate [Flonase Allergy Relief] 50 mcg/actuation spray,suspension 1 spray intranasal DAILY Rx Instructions: administer into each nostril Metamucil 3.4 gram/5.4 gram powder 1 tbsp PO DAILY Rx Instructions: mix into at least 8 oz of water or juice before administering acetaminophen [Tylenol Extra Strength] 500 mg tablet 500 mg PO Q6H PRNQty: 90 0RF ibuprofen 600 mg tablet 600 mg PO TID Qty: 90 0RF ascorbic acid (vitamin C) [Vitamin C] 500 mg Tablet 500 mg PO DAILY cholecalciferol (vitamin D3) [Vitamin D3] 50 mcg (2,000 unit) Capsule 50 mcg PO DAILY Discharge Instructions Additional Instructions: Surgery: Left reverse total shoulder arthroplasty with biceps tenodesis 10/17/24 Activity: Do not lift anything heavier than a coffee. You should keep your arm at your side in a relatively neutral position at all times except for gentle range of motion exercises, physical therapy, and essential activities. You should use the sling whenever you are out of the house. At home it is best to remove the sling and rest the arm on a pillow at your side or support the operative side with your other hand. A physical therapy prescription will be sent electronically to start in about 3 weeks. STANDARD Reverse TSA Protocol. Prescriptions: Aspirin 81 mg take 1 daily starting tomorrow morning for 7 days to help prevent a blood clot Doxycycline 200 mg take 1 every 12 hours to help prevent infection for 2 weeks (use daily probiotic or yogurt while on antibiotic) Naproxen 250 mg take 1 every 12 hours with a meal as needed for moderate pain Tramadol 50 mg take 1 every 8 hours as needed for severe pain You may use [id number] Tylenol (acetaminophen) as needed for mild pain. These pain medications may be taken all at once or in different combinations as needed. Also, recommend Colace (docusate) as a stool softener as surgery and pain medicine cause constipation. You may try [id number] diphenhydramine (Benadryl) 25-50 mg nightly as a sleep aid Dressings: Leave dressing in place until follow-up. Keep clean and dry at all times. No showers please. Follow-up: 10-[address] Harris You may take off the leg compression stockings this evening at home. You may also leave them on a few days longer if you have a history of leg swelling or edema. Please call the office during business hours with any questions or concerns. Let us know right away if you develop any redness, drainage, fevers, chest pain, or trouble breathing. Do not drink alcohol or drive for at least 24 hours after anesthesia. Stand Alone Forms: Anesthesia Discharge Inst., Josh.Nerve Block Instructions, Bruno Barrios ([facility]) Referrals: Ruben Harris MD [ [facility] STAFF PHYSICIAN] - 10/29/24 10:30 am Discharge Orders Discharge Orders: Discharge Order (Routine); Ordered 10/17/24 Ordered By: Wang Ordoñez DS: Diagnosis Discharge Diagnosis (1) Left rotator cuff tear: Status: Acute (2) Rupture of left proximal biceps tendon: Status: Acute
--- NOTE | 2024-10-17 07:30 | W.PM.OP ---
Operative Note Operative Note PRE-OP DIAGNOSIS: Left: 1. Rotator cuff arthropathy 2. Proximal biceps rupture POST-OP DIAGNOSIS: same PROCEDURE: Left: 1. Reverse total shoulder arthroplasty, CPT # 73519 2. Open biceps tenodesis, CPT # 78143 The assistant grocery store manager was medically required as this procedure involves retraction, protection of neurovascular structures, and manipulation of multiple instruments and implants at the same time, which cannot be done without a skilled assistant grocery store manager. SURGEON: Ruben Harris HAZ TECH: Wang Ordoñez ANESTHESIA TYPE: Local By Surgeon, General LMA/ETT and Primary Nerve Block Refer to Anesthesia Record ESTIMATED BLOOD LOSS: 100 COMPLICATIONS: None Patient was transported to: PACU Implants: [employer] Inhance shoulder system Small baseplate with 35 mm central screw and 35 mm inferior locking screw, 15 mm posterior locking screw, and 4 mm anterior superior kickstand augment. 40+4 mm glenosphere Medium standard stem with +0mm shell and +0mm liner Indications: Please see complete medical record for details. Findings: Proximal biceps rupture, but still mobile within the bicipital groove and completely free and mobile at the level of the pectoralis major tendon. Moderate grade partial subscapularis supraspinatus infraspinatus tearing and tendinopathy. Moderate diffuse chondromalacia and landers labral fraying tearing. No signs of infection or unusual pain?causing problem. Procedure Description: In the operating room, general anesthesia was induced. The patient was positioned beachchair on the operating room table. All bony prominences were well-padded. Preoperative antibiotics were administered. The shoulder was prepped and draped in the usual sterile fashion for shoulder arthroplasty. The correct patient, procedure, and side of the procedure were all verified prior to incision. The deltopectoral approach was preinjected with 0.25% bupivacaine containing epinephrine and taken to the anterior shoulder. Care was taken to bluntly dissect the interval between the deltoid and pectoralis major muscles and to identify the cephalic vein within its fat stripe. The the vein was mobilized laterally. Subdeltoid space and conjoined tendon were freed of adhesions. The long head of the biceps tendon was identified just lateral to the lesser tuberosity. The uppermost margin of the pectoralis major tendon was released from the proximal humerus. The long head of the biceps tendon was identified within the bicipital groove. It was still mobile and had a thin remnant heading into the joint. The biceps tendon was tenotomized at this length given the chronic proximal rupture to the pectoralis major tendon with [id number] suture tape. The leading edge of the supraspinatus was debrided of partial tearing to more stable and appropriate R TSA tissue margin. The subscapularis tenotomy was done anteriorly and peel more inferiorly while carefully bringing the proximal humerus into external rotation. Appropriate coagulation was achieved especially interiorly. The anatomic neck was cut using an oscillating saw with the humeral head bone brought back table in case there was a need for future bone grafting. Attention was then turned to the glenoid and retractors were placed and a circumferential release performed using the long head of the biceps remnant to remove soft tissue about the glenoid rim. Care was taken inferiorly to work on bone only between 5 and 7:00 o'clock and bluntly elevate tissues inferiorly. The guide was placed on the glenoid and used to confirm placement and trajectory of the central guidepin. The guidepin was inserted and advanced just through the far cortex ensuring adequate central fixation length. The glenoid was prepared according to adult education manager specifications for the baseplate and central screw. The baseplate was impacted onto the glenoid surface with good fit followed by excellent compression and fixation of the central screw. The locking guide was then used to drill and place appropriately lengthed inferior and posterior screws. There was a slight gap not expected given the correction of the superior inclination at the anterior most superior screw. The augment sizer was used to confirm the shortest length augment followed by the drill and then placement of the kickstand augment in this anterior superior position. The [id number] reamer was used to confirm adequate peripheral reaming and screw heads flush in the baseplate. The glenosphere was applied with the dean of student services and then impacted to engage the Kerr taper. It was then locked with appropriate countersinking of the setscrew. The glenosphere was inspected and found to have good fit, appropriate positioning, and no soft tissue or bony impingement. The proximal humerus was delivered from the wound with adduction and external rotation. The proximal humerus was sized followed by insertion of the bicortical pin and over reaming. The blaze was then used with good bony fixation followed by the pin broaches to confirm correct orientation down the canal with care to maintain about 30 degrees retroversion and sufficient lateral to inline humeral alignment. A small bout of bone was removed laterally and inferiorly given the increased size superior-inferior relative to medial-lateral. The final stem was then impacted with good fixation strength and rotational control. Trialing was then done with a 0 mm liner and demonstrated impressive stability and excellent soft tissue tension. The trial shell and liner were removed. The final shell was impacted, checked, and then the final liner was clicked appropriately into place, range of motion, stability, and tension confirmed. The shoulder was copiously irrigated with Betadine and normal saline. Hemostasis was appropriate. 1g Vancomycin powder was distributed to the deep and to lesser some superficial tissues. The deltopectoral interval was well-approximated. Subcutaneous tissue was irrigated then closed using 2-0 Monocryl in a buried interrupted fashion. Skin was closed using 3-0 Monocryl in a buried subcuticular fashion. Skin glue was applied to the incision. A silver impregnated bandage was placed over the incision. The extremity was placed into a shoulder immobilizer. The patient awoke from anesthesia without complication and was taken to the recovery room in stable condition. Date of Procedure: 10/17/24
[2024-10-17] MEDS: Lactated Ringers 1,000 ML 30 ML IV (07:33)
[2024-10-17] MEDS: ceFAZolin 3,000 MG in Normal Saline 100 ML 200 MG IV (07:50)
[2024-10-17] MEDS: TRANEXAMIC ACID/SOD. CHL. 1,000 MG/100 ML BAG 600 MG IVPB (07:58)
[2024-10-17] MEDS: Bupivacaine 0.25% Pres-Free W/EPI 30 ML VIAL (08:28)
--- NOTE | 2024-10-17 08:43 | W.ANESNERVE ---
Nerve Block Single Injection Procedure Date and Time Date Performed: 10/17/24 Procedure Start: 07:18 Location Where Procedure Performed Procedure Location: Day Surgery Unit Reason Performed: Postoperative Analgesia Requesting Provider: Ruben Harris Timeout Performed Timeout Performed: Yes Monitoring Used ECG, Blood Pressure, SpO2 and See EMR for corresponding vital signs Sterility Sterility: Hand Hygiene, Surgical Cap, Surgical Mask, Sterile Gloves and Chlorhexidine Sedation Given During Procedure Sedation Given (Indicate Dose Given): Versed IV Dose:: 1mg Patient Mental Status Patient Mental Status: Awake Nerve Block 1st Nerve Block: Laterality: Left Block Type: Interscalene Ultrasound Image Saved?: Yes Needle / Catheter Used: 100mm SonoPlex II Local Anesthetic Bolus (Indicate Dose Given): Lidocaine used for local infiltration of skin, Injected in 3-5ml increments after negative blood aspiration, Bupivacaine 0.5% Dose:: 10ml and Exparel Dose:: 10ml Additives (Indicate Dose Given): None Ultrasound: Sterile probe cover and gel used Nerve Stimulator: Supplement to Ultrasound use and No twitch or parasthesia noted < 0.5 mA Paresthesia: None Procedure Tolerated: No Complications and Patient tolerated well Procedure Outcome: Successful Performed By: Damir Esqueda
--- NOTE | 2024-10-17 11:40 | W.ANESPOSTOP ---
Postoperative Evaluation Date, Time and Location Date Performed: 10/17/24 Time Performed: 11:40 Patient Location: Day Surgery Unit Vital Signs Most Recent Imported Vital Signs: Most Recent Vital Signs Temp Pulse Resp BP Pulse Ox 36.7 C 76 12 104/50 L 93 10/17/24 11:26 10/17/24 11:26 10/17/24 11:26 10/17/24 11:26 10/17/24 11:26 Pain Score Most Recent Pain Score: Most Recent Pain Score Pain Level 0 10/17/24 11:24 Assessment Mental Status: Awake (Alert & Oriented to Patient Baseline) Airway and Respiratory Function: Patent airway with normal (patient baseline) respiratory exam Cardiovascular Function: Hemodynamically Stable Hydration Status: Adequately Hydrated Nausea & Vomiting: No Nausea or Vomiting Pain: Pt. Denies Any Pain Peripheral Nerve Block: Regional nerve block not resolved at time of post operative discharge
[2024-10-17] MEDS: ceFAZolin 1 GM/50 ML BAG IVPB (11:50)
[2024-10-17] MEDS: Lactobacillus Acidophilus CAP 1 CAP PO (11:51)
== END 2024-10-17 14:22 | disposition home or self-care (01) ==
PROVIDERS: PCP Family Medicine; Visit Provider Student in an Organized Health Care Education/Training Program
PROC: (CPT 23472; principal; 2024-10-17 07:30)
DX: M75.102 Unspecified rotator cuff tear or rupture of left shoulder, not specified as traumatic (principal); S46.212A Strain of muscle, fascia and tendon of other parts of biceps, left arm, initial encounter; X58.XXXA Exposure to other specified factors, initial encounter; G89.18 Other acute postprocedural pain
CPT/HCPCS: 23472; 23430; C1713; 64415; 73030; J0131; J0665; J0666; J0690; J1100; J1885; J2250; J2371; J2405; J2704; J3370

== ENCOUNTER 2024-10-29 15:51 | Outpatient (CLI) | payer MEDICARE, BC, SELFPAY ==
--- NOTE | 2024-10-29 10:53 | DI.RAD_ITS ---
Exam(s) XR SHOULDER LT COMPLETE 2+V EXAM: XR SHOULDER LT COMPLETE 2+V CLINICAL HISTORY: F/U LEFT RTSA. TECHNIQUE: 2D digital imaging was performed. Three images were obtained. Grashey and Y views were o btained. COMPARISON: CR XR SHOULDER LT COMPLETE 2+V from 10/17/2024 FINDINGS: BONES: There are stable post operative changes of a left reverse total shoulder arthroplasty present. No fracture or dislocation. JOINTS: The orthopedic hardware is in good position. No evidence of hardware loosening. There are d egenerative changes seen at the acromioclavicular joint. SOFT TISSUE: Normal. IMPRESSION: Stable left reverse total shoulder arthroplasty. DATA REPOSITORY: RADIATION DOSE DELIVERED:
== END 2024-10-29 15:52 | disposition home or self-care (01) ==
LOC: DIORS 15:52
PROVIDERS: PCP Family Medicine; Referring Provider Family Medicine; Visit Provider Student in an Organized Health Care Education/Training Program
DX: Z47.1 Aftercare following joint replacement surgery; Z96.612 Presence of left artificial shoulder joint
CPT/HCPCS: 99024; 73030

== ENCOUNTER 2024-12-17 10:27 | Outpatient (CLI) | payer MEDICARE, BC, SELFPAY ==
--- NOTE | 2024-12-17 10:15 | DI.RAD_ITS ---
Exam(s) XR SHOULDER LT COMPLETE 2+V EXAM: XR SHOULDER LT COMPLETE 2+V INDICATION: pain and stiffness s/p RTSA. COMPARISON: CR XR SHOULDER LT COMPLETE 2+V from 10/17/2024 CR XR SHOULDER LT COMPLETE 2+V from 10/29/2024 TECHNIQUE: 2D digital imaging was performed. Two views. FINDINGS: Stable alignment shoulder prosthesis. No abnormal surrounding bony lucencies. DATA REPOSITORY: RADIATION DOSE DELIVERED:
== END 2024-12-17 10:28 | disposition home or self-care (01) ==
LOC: DIORS 10:28
PROVIDERS: PCP Family Medicine; Referring Provider Family Medicine; Visit Provider Student in an Organized Health Care Education/Training Program
DX: Z47.1 Aftercare following joint replacement surgery (principal); Z96.612 Presence of left artificial shoulder joint
CPT/HCPCS: 99024; 73030

== ENCOUNTER 2025-02-11 11:29 | Outpatient (CLI) | payer MEDICARE, BC, SELFPAY ==
--- NOTE | 2025-02-11 10:30 | DI.RAD_ITS ---
Exam(s) XR SHOULDER LT COMPLETE 2+V EXAM: XR SHOULDER LT COMPLETE 2+V INDICATION: F/U LEFT RTSA. COMPARISON: CR XR SHOULDER LT COMPLETE 2+V from 04/30/2024 CR XR SHOULDER LT COMPLETE 2+V from 10/17/2024 CR XR SHOULDER LT COMPLETE 2+V from 10/29/2024 CR XR SHOULDER LT COMPLETE 2+V from 12/17/2024 TECHNIQUE: 2D digital imaging was performed. Two views. FINDINGS: There is stable alignment of the shoulder prosthesis. Stable lucency at the ureter aspect of the glenoid component. DATA REPOSITORY: RADIATION DOSE DELIVERED:
== END 2025-02-11 11:30 | disposition home or self-care (01) ==
LOC: DIORS 11:29
PROVIDERS: PCP Family Medicine; Visit Provider Student in an Organized Health Care Education/Training Program
DX: Z47.89 Encounter for other orthopedic aftercare (principal); M12.812 Other specific arthropathies, not elsewhere classified, left shoulder; M75.102 Unspecified rotator cuff tear or rupture of left shoulder, not specified as traumatic
CPT/HCPCS: 99213; 73030

== ENCOUNTER 2025-03-04 09:55 | Outpatient (CLI) | payer MEDICARE, BC, SELFPAY ==
--- NOTE | 2025-03-04 08:15 | DI.RAD_ITS ---
Exam(s) XR SHOULDER LT COMPLETE 2+V EXAM: XR SHOULDER LT COMPLETE 2+V CLINICAL HISTORY: evalate left shoulder. TECHNIQUE: 2D digital imaging was performed. Three images were obtained. Y, axillary and Grashey views were obtained. COMPARISON: CR XR SHOULDER LT COMPLETE 2+V from 02/11/2025 FINDINGS: BONES: There are stable post operative changes of a left reverse total shoulder arthroplasty present. No fracture or dislocation. JOINTS: The orthopedic hardware is in good position. No evidence of hardware loosening. SOFT TISSUE: Normal. IMPRESSION: Stable left reverse total shoulder arthroplasty. DATA REPOSITORY: RADIATION DOSE DELIVERED:
== END 2025-03-04 09:56 | disposition home or self-care (01) ==
LOC: DIORS 09:55
PROVIDERS: PCP Family Medicine; Visit Provider Student in an Organized Health Care Education/Training Program
DX: M75.102 Unspecified rotator cuff tear or rupture of left shoulder, not specified as traumatic (principal); M12.812 Other specific arthropathies, not elsewhere classified, left shoulder; M67.922 Unspecified disorder of synovium and tendon, left upper arm; X50.9XXA Other and unspecified overexertion or strenuous movements or postures, initial encounter
CPT/HCPCS: 99213; 73030

== ENCOUNTER → 2025-03-26 14:20 | Outpatient (BNVA) | payer MEDICARE, BC, SELFPAY | PROVIDERS: PCP Family Medicine; Referring Provider Family Medicine; Visit Provider Student in an Organized Health Care Education/Training Program | DX: Z47.1 Aftercare following joint replacement surgery (principal); M75.102 Unspecified rotator cuff tear or rupture of left shoulder, not specified as traumatic; M12.812 Other specific arthropathies, not elsewhere classified, left shoulder; M67.922 Unspecified disorder of synovium and tendon, left upper arm | CPT/HCPCS: 99213 ==

== ENCOUNTER 2025-04-23 09:11 | Emergency (ER) | payer MEDICARE, BC, SELFPAY ==
[2025-04-23 09:12] VITALS: BP 170/55; PULSE 71; RESP 15; TEMP 36.5; O2SAT 100
[2025-04-23 09:19] VITALS: BP 170/55; PULSE 71; RESP 15; TEMP 36.5; O2SAT 100
[2025-04-23 10:22] VITALS: BP 117/55; PULSE 63; RESP 12; O2SAT 99
--- NOTE | 2025-04-23 15:10 | W.ED.GENAD ---
Discharge Plan Disposition Patient Disposition: Home Discharge Details Clinical Impression: Bleeding from left ear, Tympanic membrane perforation Primary Care Provider: Fer Joy ED Provider: Kellie Ortiz Home Meds and New Rx's Prescriptions: New ofloxacin 0.3 % drops 10 drp otic (ear) DAILY 7 Days Qty: 5 0RF Continued multivitamin tablet 1 tab PO DAILY calcium-magnesium 500-250 mg tablet 1 tab PO DAILY vitamin B complex [B Complex-Vitamin B12] Tablet 1 tab PO DAILY fexofenadine [Sunshine Allergy] 180 mg tablet 180 mg PO DAILY fluticasone propionate [Flonase Allergy Relief] 50 mcg/actuation spray,suspension 1 spray intranasal DAILY Rx Instructions: administer into each nostril Metamucil 3.4 gram/5.4 gram powder 1 tbsp PO DAILY Rx Instructions: mix into at least 8 oz of water or juice before administering ibuprofen 600 mg tablet 600 mg PO TID PRN acetaminophen [Tylenol Extra Strength] 500 mg tablet 500 mg PO Q6H PRNQty: 90 0RF ascorbic acid (vitamin C) [Vitamin C] 500 mg Tablet 500 mg PO DAILY cholecalciferol (vitamin D3) [Vitamin D3] 50 mcg (2,000 unit) Capsule 50 mcg PO DAILY Discharge Instructions Instructions: Ruptured Eardrum (DC) Additional Instructions: Wear an ear plug when you shower Use the ofloxacin ox as prescribed and follow-up with Dr. Joy to reassess on Monday. You will have some blood ooze from your ear when you place the eardrops, do not be alarmed He can place referral if need be to ENT Please return she develop fever, chills, headache, or should any new concerns arise Referrals: Fer Joy MD [Primary Care Provider, Medicine] Discharge Data Discharge Date/Time-TO BE ENTERED AT DEPARTURE: 04/23/25 10:22 HPI General Date/Time Provider Initiated Documentation: 04/23/25 09:20. HPI Narrative: This 79-year-old gentleman reports of blood noted from left ear this morning. States he awoke with blood on his pillow. Denies any known trauma or pain associated. 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 Denies any history of similar in the past. Denies any recent otic complaints. Denies any history of coagulopathy. Was asymptomatic when he went to bed Related Data Home Medications ?Medication ?Instructions ?Recorded ?Confirmed calcium-magnesium 500 mg-250 mg 1 tab PO DAILY 01/16/19 04/23/25 tablet multivitamin 1 tab PO DAILY 01/16/19 04/23/25 vitamin B complex (B 1 tab PO DAILY 09/16/20 04/23/25 Complex-Vitamin B12 tablet) acetaminophen 500 mg tablet 500 mg PO Q6H PRN #90 tabs 12/02/20 04/23/25 (Tylenol Extra Strength) ascorbic acid (vitamin C) 500 mg 500 mg PO DAILY 05/29/21 04/23/25 tablet (Vitamin C) cholecalciferol (vitamin D3) 50 50 mcg PO DAILY 05/29/21 04/23/25 mcg (2,000 unit) capsule (Vitamin D3) fexofenadine 180 mg tablet 180 mg PO DAILY 06/28/24 04/23/25 (Sunshine Allergy) fluticasone propionate 50 1 spray intranasal DAILY 06/28/24 04/23/25 mcg/actuation nasal spray,suspension (Flonase Allergy Relief) psyllium husk 3.4 gram/5.4 gram 1 tbsp PO DAILY 06/28/24 04/23/25 oral powder (Metamucil) ibuprofen 600 mg tablet 600 mg PO TID PRN 04/23/25 04/23/25 ofloxacin 0.3 % ear drops 10 drp otic (ear) DAILY 7 days #5 04/23/25 mL Previous Rx's ?Medication ?Instructions ?Recorded acetaminophen 500 mg tablet 500 mg PO Q6H PRN #90 tabs 12/02/20 (Tylenol Extra Strength) ofloxacin 0.3 % ear drops 10 drp otic (ear) DAILY 7 days #5 04/23/25 mL Allergies Allergy/AdvReac Type Severity Reaction Status Date / Time Sulfa (Sulfonamide Allergy Intermediate Skin Rash, Verified 04/23/25 09:16 Antibiotics) hives, all red and blotchy General Stated Complaint: EarProblem ITZ: 4 Exam Narrative Exam Narrative: Alert and oriented 79-year-old male in no acute distress, left external auditory canal with blood clot noted, able to visualize the corner of tympanic membrane 10 o'clock position appears to be intact no obvious laceration or tenderness no mastoid tenderness no visible evidence of trauma to the pinna oropharynx patent uvula midline no maxillary tenderness answering questions appropriately pupils equal round reactive to light and accommodation Course Vital Signs Vital signs: Vital Signs Temperature 36.5 C 04/23/25 09:12 Pulse 71 04/23/25 09:12 Respiratory Rate 15 04/23/25 09:12 Blood Pressure 170/55 H 04/23/25 09:12 Pulse Oximetry 100 04/23/25 09:12 Temperature 36.5 C 04/23/25 09:19 Temperature Source Oral 04/23/25 09:19 Pulse 63 04/23/25 10:22 Respiratory Rate 12 04/23/25 10:22 Blood Pressure 117/55 L 04/23/25 10:22 Blood Pressure Position Sitting 04/23/25 09:19 Pulse Oximetry 99 04/23/25 10:22 Oxygen Delivery Method Room Air 04/23/25 09:19 Oxygen Flow Rate 0 04/23/25 09:19 Pain Level 0 04/23/25 09:19 Medical Decision Making Assessment and plan: 79-year-old male presenting with report of blood noted in external auditory canal. I did attempt to clear blood clot from canal with cotton-tipped applicator however the blood is located abutting the tympanic membrane and so I do not feel comfortable continuing this procedure. I was able to visualize the corner of the tympanic membrane and it does not look like there is additional perforation or evidence of trauma there is certainly no evidence of hemotympanum. Patient adamantly denies any trauma or traumatic injuries. I did speak with Brenda Zabala physician customer care assistant with ENT and asked for any recommendations on this patient that has what I suspect to be tympanic perforation and a known chronic perforation and she recommended ofloxacin drops and ENT/PCP follow-up. Patient discharged home in stable condition with stable vitals courage to follow-up on Monday for recheck with primary care physician [facility] All Active Problems (Updated 04/23/25 @ 10:09 by RENETTA Navarro) Tympanic membrane perforation (Acute) Bleeding from left ear (Acute) Tendinopathy of left biceps tendon (Acute) Rotator cuff tear arthropathy of left shoulder (Acute) s/p Left reverse total shoulder arthroplasty with biceps tenodesis 10/17/24 Rupture of left proximal biceps tendon (Acute) Encounter for screening colonoscopy (Acute) Induration penis plastica (Acute) Arthritis of both glenohumeral joints (Acute) Intermittent palpitations (Acute) Chest pain (Acute) Infection of bursa (Acute) Infrapatellar bursitis (Acute) Left carpal tunnel syndrome (Acute) S/P ECTR: 01/27/2021 Right carpal tunnel syndrome (Acute) S/P ECTR: 12/02/2020 Anemia (Acute 03/09/18) Chronic otitis media (Acute 09/23/13) Chronic serous otitis media (Acute 09/23/13) Conductive hearing loss (Acute 09/23/13) Erythema migrans (Lyme disease) (Acute 02/05/18) Mixed hearing loss (Acute 05/27/14) Other disorders of Eustachian tube (Acute 05/26/14) Primary osteoarthritis of right hip (Acute 09/07/16) Sensorineural hearing loss (Acute 05/27/14) Trochanteric bursitis, right hip (Acute 12/27/17) Tympanic membrane perforation (Acute 05/26/14) Sprain of abdominal wall (Acute) Likely right external oblique Lumbar radicular syndrome (Acute) Trigger little finger of right hand (Acute) S/P release: 12/02/2020 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 ear (Acute) Medical History (Updated 04/23/25 @ 10:09 by RENETTA Navarro) Left rotator cuff tear DEPO MEDROL 10/25/22; 03/21/23 Partial tear of left rotator cuff (02/01/16) Atrial premature complex Ophthalmic migraine History of COVID-19 (~02/2024) Urinary stone Edema of lower extremity Fatigue Benign prostatic hyperplasia Allergic rhinitis History of varicocele DVT (deep venous thrombosis) (~09/2023) Asymptomatic varicose veins Preventative health care Lumbar back pain Fecal incontinence Skin lesion Infection and inflammatory reaction due to internal right hip prosthesis, sequela Anemia due to blood loss History of snoring Contact dermatitis Diarrhea Hand numbness Osteoarthritis of neck Pre-diabetes pt. denies this Rash Macrocytic anemia Lumbar radiculopathy Back pain Marginal perforation of tympanic membrane of left ear Fecal smearing Memory impairment Obesity Osteoarthritis, shoulder Spinal stenosis Radicular pain Hyperlipidemia Scrotal varices Varicose vein of leg Chronic cough Rotator cuff syndrome Actinic keratoses Peyronie disease Surgical History (Updated 12/17/24 @ 10:16 by RENETTA Duran) History of colonoscopy (~07/2024) S/P trigger finger release (~2020) Hx of carpal tunnel repair (~2020) History of excision of pilonidal cyst History of total replacement of right hip back surgery 10/2017 Vasectomy Total replacement of hip 2017 anterior R Extraction of cataract bilateral Arthroscopy, Shoulder bilateral Social History Smoking/Tobacco Use Status: Former Tobacco Use Quit Date: 08/21/75 Smoking risk assessment performed?: Yes Alcohol Intake: current Alcohol Intake frequency: a few times a month Alcohol type: hard liquor Drug use: Never Substance use type: does not use Household members: spouse Housing: house Number of Children: 2 number of grandchildren: 2 current occupation: Retired Pets and animals: Yes Current gender identity: male What is your relationship status?: Panel score (0-1 are the most socially isolated patients): 1 What type of physical activity do you participate in: walking Frequency: daily Seatbelt use: always Additional Social history: [employer] Have you Been Recently Intoxicated or Drunk Within the Last 30 days?: No Have you Ever Experienced Previous Episodes of Alcohol Withdrawal?: No Have you ever Experienced Withdrawal Seizures?: No Have you ever Experienced Delirium Tremens(DT)s?: No Have you ever undergone Alcohol Rehabilitation Treatment (i.e, inpt ot outpatient treatment programs)?: No Have you ever Experienced Blackouts?: No Have you ever Combined Alcohol with other Downers within the last 90 days?: No Have you ever Combined Alcohol with any other Substance of Abuse during the last 90 days?: No Result: 0
== END 2025-04-23 10:22 | disposition home or self-care (01) ==
PROVIDERS: Emergency Provider Physician Assistant; PCP Family Medicine
DX: H92.22 Otorrhagia, left ear (principal); H72.92 Unspecified perforation of tympanic membrane, left ear
CPT/HCPCS: 99283 ×2

== ENCOUNTER 2025-07-22 09:46 | Outpatient (REF) | payer MEDICARE, BC, SELFPAY ==
[2025-07-22 15:25] LABS: HCT 37.3 % (40.0-50.0); HGB 12.1 g/dL (13.5-17.5); MCH 32.5 pg (27.0-33.0); MCHC 32.4 % (32.0-36.0); MCV 100 fL (80-95); MPV 9.4 fL (8.0-11.0); Platelet Count 174 10^3/uL (130-400); RBC 3.72 10^6/uL (4.36-5.78); RDW 13.9 % (11.8-14.1); RDW-SD 50.6 fL; WBC 6.91 10^3/uL (4.4-10.8)
[2025-07-22 15:37] LABS: Iron 85 ug/dL (65-175); Total Iron Binding Capacity 271 ug/dL (250-425)
[2025-07-22 15:39] LABS: Anion Gap 8.4 mmol/L (3-11); BUN 19 mg/dL (9-23); CO2 28.6 mmol/L (20.0-31.0); Calcium 9.2 mg/dL (8.3-10.6); Chloride 103 mmol/L (98-107); Glucose 106 mg/dL (74-106); Potassium 4.5 mmol/L (3.5-5.1); Sodium 140 mmol/L (136-145)
[2025-07-22 15:42] LABS: Ferritin 134 ng/mL (11-307)
[2025-07-22 16:22] LABS: Hemoglobin A1C 5.9 % (<5.7)
== END 2025-07-22 09:47 | disposition home or self-care (01) ==
LOC: NCHCN 09:46
PROVIDERS: PCP Family Medicine; Visit Provider Family Medicine
DX: D64.9 Anemia, unspecified (principal); R73.03 Prediabetes
CPT/HCPCS: 80048; 85027; 82728; 83036; 83540; 83550